=== PATIENT | female | born 1940 | race Two or more races ===

== ENCOUNTER 2024-10-15 19:19 | Inpatient (IN) | payer MEDICARE, MEDICAID ==
[~2024-10-15] VITALS: Ht 162.6 cm; Wt 61.2 kg
--- NOTE | 2024-10-15 19:48 | ED.PDOC ---
History of Present Illness HPI Comments 84 year old female brought in by EMS presents to the ED with a chief complaint of dark stool onset today (10/15/24). Per EMS, patient's family noticed light trace of dark stool, patient woke up today, symptoms had worsen. Upon EMS arrival, BS was reading "high", patient is on 2L O2 at home, A&O to self. Per patient's family, patient was recently taken off Aspirin, last blood transfusion was 2 months ago. PMHx CHF, DM, HTN, anemia, A-fib, dementia. No other symptoms or modifying factors present at this time. Chief Complaint: GI Bleed Time Seen by MD: 19:25 Reviewed Notes: Medications, Allergies Home Meds Reported Medications Megestrol Acetate (Appetite) (Megestrol Acetate) 625 Mg/5 Ml Melida 10/15/24 Levothyroxine Sodium (Levothyroxine Sodium) 75 Mcg Tab, 1 TAB PO QAM 10/15/24 Amlodipine Besylate (Amlodipine Besylate) 10 Mg Tab, 1 DAILY 10/15/24 Carvedilol (Carvedilol) 12.5 Mg Tab 10/15/24 Information Source: Patient, Emergency Med Personnel Mode of Arrival: EMS Severity: Moderate Timing: Hours Duration: Since onset Prehospital treatment: None Vital Signs Vital Signs Date Time Temp Pulse Resp B/P (MAP) Pulse Ox O2 Delivery O2 Flow Rate FiO2 10/15/24 19:27 98.2 63 18 166/91 (116 98 Physical Exam General: Awake, alert No acute distress. Skin: Skin in warm, dry and intact. Appropriate color for ethnicity. HEENT: The head is normocephalic and atraumatic. Nasal cannula in place. Conjunctivae are clear without exudates or hemorrhage. Sclera is non-icteric. EOM are intact. No signs of nystagmus. Eyelids are normal in appearance without swelling or lesions. Oral mucosa is pink and moist Neck: The neck is supple with normal range of motion. No JVD. Cardiac: Heart rate and rhythm are normal. No murmurs, gallops, or rubs are auscultated. Respiratory: No signs of respiratory distress. Lung sounds are clear in all lobes bilaterally without rales, ronchi, or wheezes. Abdominal: Abdomen is soft, non-tender without distention. Bowel sounds are present and normoactive in all four quadrants. Extremities: Upper and lower extremities are atraumatic in appearance without deformity or edema. Neurological: The patient is awake, alert and oriented to person, Speech is clear. There is no facial asymmetry. Review of Systems: Unable to obtain full ROS due to altered mental status however patient is reporting right upper extremity pain, denies chest pain or abdominal pain. Family noted a black color stool. Past Medical History PAST MEDICAL HISTORY: AFIB, Anemia, CHF, Dementia, DM, HTN, Thyroid Surgical History: Denies all surgeries MILL HAND History: No Pertinent MILL HAND History Family History Family History: Reviewed,noncontributory to illness, No family hx of Cancer, No family hx of DM, No family hx of Heart smith, No family hx of HTN, No family hx ofKidney smith, No family hx of Liver smith, No family hx of Lung smith, No family hx of Stroke Social History Smoker: Non-Smoker Alcohol: Denies ETOH Use Drugs: Denies Drug Use Lives In: Home Was a procedure done? Was a procedure done?: No Differential Dx Considerations may include: Upper GI bleed, lower GI bleed, peptic ulcer disease, perforated viscus, anticoagulation and affect, AVM, esophageal varices, DKA, hyperglycemia, acute coronary syndrome, pneumonia, congestive heart failure exacerbation other X-Ray, Labs, Meds, VS Vital Signs Date Time Temp Pulse Resp B/P (MAP) Pulse Ox O2 Delivery O2 Flow Rate FiO2 10/15/24 19:27 98.2 63 18 166/91 (116) 98 Lab Test 10/15/24 20:07 10/15/24 19:41 Range/Units White Blood Count 5.0 4.4-10.8 10^3/uL Red Blood Count 2.77 L 4.0-5.20 10^6/uL Hemoglobin 7.3 L 12.2-16.2 g/dL Hematocrit 22.6 L 36.0-46.0 % Mean Corpuscular Volume 81.7 80.0-100.0 fL Mean Corpuscular Hemoglobin 26.5 L 28.0-32.0 pg Mean Corpuscular Hemoglobin Concent 32.4 32.0-36.0 g/dL Red Cell Distribution Width 15.2 H 11.8-14.3 % Platelet Count 240 140-450 10^3/uL Mean Platelet Volume 8.8 6.9-10.8 fL Neutrophils (%) (Auto) 66.6 37.0-80.0 % Lymphocytes (%) (Auto) 23.7 10.0-50.0 % Monocytes (%) (Auto) 6.3 0.0-12.0 % Eosinophils (%) (Auto) 2.4 0.0-7.0 % Basophils (%) (Auto) 1.0 0.0-2.0 % Neutrophils # (Auto) 3.3 1.6-8.6 10 ^3/uL Lymphocytes # (Auto) 1.2 0.4-5.4 10 ^3/uL Monocytes # (Auto) 0.3 0-1.3 10 ^3/uL Eosinophils # (Auto) 0.1 0-0.8 10 ^3/uL Basophils # (Auto) 0 0-0.2 10 ^3/uL Nucleated Red Blood Cells 0.0 % Sodium Level 130 L 136-145 mmol/L Potassium Level 3.7 3.5-5.1 mmol/L Chloride Level 97 L 98-107 mmol/L Carbon Dioxide Level 25 20-31 mmol/L Anion Gap 8 5-15 Blood Urea Nitrogen 34 H 9-23 mg/dL Creatinine 1.90 H 0.550-1.02 mg/dL Glomerular Filtration Rate Calc 25 >90 mL/min BUN/Creatinine Ratio 17.9 10.0-20.0 Serum Glucose 558 *H 74-106 mg/dL Lactic Acid Level 0.9 0.4-2.0 mmol/L Calcium Level 9.5 8.7-10.4 mg/dL Magnesium Level 2.0 1.6-2.6 mg/dL Total Bilirubin < 0.2 L 0.2-1.0 mg/dL Aspartate Amino Transferase (AST) < 8 L 13-40 U/L Alanine Aminotransferase (ALT) < 9 7-40 U/L Alkaline Phosphatase 115 46-116 U/L Troponin I High Sensitivity 13 </=34 ng/L B-Type Natriuretic Peptide 416.33 0-100 pg/mL Total Protein 7.1 5.7-8.2 g/dL Albumin 3.9 3.2-4.8 g/dL Beta-Hydroxybutyric Acid 0.158 < 0.4 mmol/L Blood Gas Specimen Type Arterial Blood Gas Sample Site Left radial Blood Gas Patient Temperature 37.0 Arterial Blood Date Drawn [id number] Arterial Blood pH 7.405 7.350-7.450 Arterial Blood Partial Pressure CO2 36.5 32.0-45.0 mmHg Arterial Blood Partial Pressure O2 86.0 83.0-108.0 mmHg Arterial Blood HCO3 22.4 21.0-28.0 mmol/L Arterial Blood Oxygen Saturation 96.0 94.0-98.0 % Arterial Blood Base Excess -2.1 L -2.0-3.0 mmol/L Arterial Blood Oxyhemoglobin 95.7 94.0-98.0 % Arterial Blood Carboxyhemoglobin 0.1 L 0.5-1.5 % Arterial Blood Methemoglobin 0.2 0.0-1.5 % James Test Modified Blood Gas Total Hemoglobin 8.40 L 12.0-16.0 g/dL Blood Gas Modality Nasal cannula FiO2 % 28.0 Current Medications Medications (Trade) Dose Ordered Sig/Jackeline Route Start Time Stop Time Status Last Admin Pantoprazole Sodium (Protonix) 40 mg ONCE ONCE IV 10/15/24 19:45 10/15/24 19:46 DC 10/15/24 22:44 [place] [address] Ph: [phone] DIAGNOSTIC IMAGING Diagnostic Imaging Report : [id number] Signed PATIENT: AUGUSTUS BLACKWELL ACCT: [id number] UNIT: [id number] : 1940 LOC: OVERFLOW ROOM / BED: [address] [address] AGE / SEX: 84 / F ADM STATUS: ADM IN SERVICE 50 ORDERING PHYSICIAN: ESTELA PEREZ MD PROCEDURE(s): CXR1 - CHEST XRAY 1 VIEW REASON: Shortness of breath ORDER NUMBER(s): [id number], ACCESSION NUMBER(s): [id number] CHEST RADIOGRAPH Indication: Shortness of breath Technique: Single frontal view of the chest was obtained Comparison: None Findings/ IMPRESSION: Small left-sided pleural effusion and/or atelectasis superimposed infection not excluded ATED BY: ARTEMIO FAUSTIN DO DICTATED DATE/TIME: 10/15/242236 SIGNED BY: ARTEMIO FAUSTIN DO SIGNED DATE/TIME: 10/15/242236 CC: [place] [address] Ph: [phone] DIAGNOSTIC IMAGING Diagnostic Imaging Report : [id number] Signed PATIENT: AUGUSTUS BLACKWELL ACCT: [id number] UNIT: [id number] : 1940 LOC: OVERFLOW ROOM / BED: [address] [address] AGE / SEX: 84 / F ADM STATUS: ADM IN SERVICE 50 ORDERING PHYSICIAN: ESTELA PEREZ MD PROCEDURE(s): ABPL - CT AB PEL WO CON-NO ORAL OR IV REASON: Suspected GI bleed, black stool ORDER NUMBER(s): [id number], ACCESSION NUMBER(s): [id number] Exam: CT AB PEL WO CON-NO ORAL OR IV History: Suspected GI bleed, black stool Comparison Study: None Contrast: None TECHNIQUE: Multidetector CT of abdomen and pelvis without IV contrast. Radiation Dose Information: CT Dose: CTDI volume is 14.6 mGy. Dose-length product is 28.4 mGy*cm FINDINGS: Patient has cardiomegaly with a significant pericardial effusion adjacent to the left heart. Follow-up cardiac echo is suggested further assessment. Are dense calcifications in the left anterior descending coronary artery, left circumflex and also the aortic valve and right coronary artery as well.1 lung bases are suggestive of pulmonary vascular congestion. Stomach demonstrates lack of rugae suggesting possible chronic gastritis. Kidneys are atrophied kidneys have simple cysts. Pancreas appears TB partially atrophied. The common bile duct is enlarged measuring 12.7 mm in caliber. Patient has a moderately large stool burden. The uterus is atrophied no evidence for gastrointestinal obstruction Patient has osteopenia involving the vertebral bodies with significant anterior wedging of T11 and probably developing compression fracture involving L2. Appendix is normal. There are no diverticuli appreciated. Patient has intramedullary ankit involving the right femur. IMPRESSION: Moderately heavy stool burden. Patient appears to have effaced rugae in the stomach which may indicate chronic gastritis May relate to patient's symptoms. Common bile duct is dilated. Patient has atrophied kidneys and maybe developing multiple compression fractures involving the thoracolumbar spine ATED BY: JOSE FRANCISCO CLEARY MD DICTATED DATE/TIME: 10/15/242320 SIGNED BY: JOSE FRANCISCO CLEARY MD SIGNED DATE/TIME: 10/15/242320 CC: Time of 1ST Reevaluation: 19:55 Reevaluation 1ST: Unchanged Patient Education/Counseling: Diagnosis, Treatment, Prognosis Family Education/Counseling: No Family Present Departure 1 Departure Time of Disposition: 20:55 Impression: Primary Impression: Melena Additional Impressions: Congestive heart failure Hyperglycemia Anemia Renal failure Disposition: ADMITTED INPATIENT Condition: Stable Comments 84-year-old female who presents to the emergency department via EMS with report of melena. Protonix was administered. She was found to be hyperglycemic without DKA. IV insulin was administered. Patient has a history of congestive heart failure on supplemental oxygen. Type and screen pending for anemia with a hemoglobin of 7.3 in the setting of melena. Patient admitted for further treatment, evaluation and monitoring. Extensive evaluation was performed in attempt to identify or rule out: (See differential diagnosis section) The following tests were ordered, and results were reviewed by me: (See diagnostic results section) The following test were independently interpreted by me: N/A I reviewed and agreed with the following test results read by other providers: Chest x-ray I reviewed the following notes from the pt's past medical encounters: N/A Additional information was gathered from interviewing the following independent historians: EMS personnel Discussion of management or test interpretation with external physician/other qualified health disabilities caregiver: N/A Addressed an acute or chronic illness that poses a threat to life or bodily function: Severe anemia, hyperglycemia, GI bleed Decision regarding hospitalization or escalation of hospital level of care: Risk and benefits of admission for further treatment of patient's condition was considered. Due to patient's current clinical condition, high risk of decline and poor outcome if discharged and need for further inpatient management and monitoring, patient will be admitted to the hospital. Drug therapy requiring intensive monitoring for toxicity: IV insulin Parenteral controlled substances: N/A Decision regarding elective major surgery with identified patient or procedure risk factors: N/A Decision regarding emergency major surgery: N/A Decision not to resuscitate or to de-escalate care because of poor prognosis: N/A Diagnosis or treatment significantly limited by social determinants of health: N/A Critical Care Note Critical Care Time?: No Stability Stability form required: No I personally scribed for ESTELA PEREZ MD ([email or web address]) on 10/15/24 at 19:48. Electronically submitted by Mayr Carter ([email or web address]). I personally scribed for ESTELA PEREZ MD ([email or web address]) on 10/15/24 at 22:42. Electronically submitted by Mary Carter ([email or web address]). I personally scribed for ESTELA PEREZ MD ([email or web address]) on 10/15/24 at 23:40. Electronically submitted by Mary Carter [email or web address]). ESTELA PEREZ MD Oct 15, 2024 19:48
[2024-10-15 19:57] LABS: Base Excess -2.1 mmol/L (-2.0-3.0)
[2024-10-15 20:23] LABS: Basophils # (auto) 0 10 ^3/uL (0-0.2); Eosinophils # (auto) 0.1 10 ^3/uL (0-0.8); Hemoglobin 7.3 g/dL (12.2-16.2)
[2024-10-15 20:25] LABS: Eosinophils % (auto) 2.4 % (0.0-7.0); Hematocrit 22.6 % (36.0-46.0); Lymphocytes # (auto) 1.2 10 ^3/uL (0.4-5.4); Lymphocytes % (auto) 23.7 % (10.0-50.0); Mean Corpuscular Hemoglobin 26.5 pg (28.0-32.0); Mean Corpuscular Hgb Conc. 32.4 g/dL (32.0-36.0); Mean Corpuscular Volume 81.7 fL (80.0-100.0); Monocytes # (auto) 0.3 10 ^3/uL (0-1.3); Monocytes % (auto) 6.3 % (0.0-12.0); Neutrophils # (auto) 3.3 10 ^3/uL (1.6-8.6); Neutrophils % (auto) 66.6 % (37.0-80.0); Platelet Count (auto) 240 10^3/uL (140-450); Red Blood Cells 2.77 10^6/uL (4.0-5.20); Red Cell Distribution Width 15.2 % (11.8-14.3)
[2024-10-15 20:40] LABS: Albumin 3.9 g/dL (3.2-4.8); Alkaline Phosphatase 115 U/L (46-116); Anion Gap 8 (5-15); BUN/Creatinine Ratio 17.9 (10.0-20.0); Calcium 9.5 mg/dL (8.7-10.4); Carbon Dioxide 25 mmol/L (20-31); Potassium 3.7 mmol/L (3.5-5.1); Total Protein 7.1 g/dL (5.7-8.2)
[2024-10-15 20:42] LABS: Aspartate Aminotransferase < 8 U/L (13-40); Blood Urea Nitrogen 34 mg/dL (9-23); Chloride 97 mmol/L (98-107); Sodium 130 mmol/L (136-145)
[2024-10-15 20:43] LABS: Alanine Aminotransferase < 9 U/L (7-40); Bilirubin, Total < 0.2 mg/dL (0.2-1.0)
[2024-10-15 20:45] LABS: Glucose 558 mg/dL (74-106)
[2024-10-15] MEDS: InsuLIN REG 1unit/0.01ml Soln (100units/ml) IV ONE (21:00)
[2024-10-15] MEDS ORDERED: DEXTROSE (50%) 50ML SYRG IV PRN (22:00)
[2024-10-15] MEDS ORDERED: MORPHINE SULFATE INJ 2 MG/ml SYRG IV PRN (22:00)
[2024-10-15] MEDS ORDERED: NITROGLYCERIN 0.4 MG SL TAB SL PRN (22:00)
[2024-10-15] MEDS: SODIUM CHLORIDE 0.9% 1,000 ML IV SCH (22:00)
--- NOTE | 2024-10-15 22:00 | DVHHP2 ---
Admitting Diagnosis: Dark stools History of Present Illness 84 yo female patient with hx of CHF, DM, HTN, A-fib, anemia, and dementia c/o dark stools x 1 day. EMS found patient's BS to be reading "high". Patient's last blood transfusion was 2 months ago. While in the emergency department the patient was evaluated by the provider, As per provider: Labs, vital signs, and imagining monitored. Patient will be admitted for further evaluation and treatment. I discussed admission with the patient/family and is in agreement to treatment plan. Allergies: Coded Allergies: No Known Drug Allergy (Verified Allergy, Unknown, 10/16/24) Home Meds Reported Medications Megestrol Acetate (Appetite) (Megestrol Acetate) 625 Mg/5 Ml Mel[place] 10/15/24 Levothyroxine Sodium (Levothyroxine Sodium) 75 Mcg Tab, 1 TAB PO QAM 10/15/24 Amlodipine Besylate (Amlodipine Besylate) 10 Mg Tab, 1 DAILY 10/15/24 Carvedilol (Carvedilol) 12.5 Mg Tab 10/15/24 Current Medications Current Medications Medications (Trade) Dose Ordered Sig/Jackeline Route PRN Reason Start Time Stop Time Status Last Admin Ondansetron HCl (Zofran) 4 mg Q4HP PRN IV NAUSEA / VOMITING 10/15/24 22:00 Morphine Sulfate 2 mg Q4HPRN PRN IV SEVERE PAIN (7-10 PAIN SCALE) 10/15/24 22:00 Nitroglycerin (Ntrostat Sublingual) 0.4 mg Q5MINP PRN SL FOR CHEST PAIN 10/15/24 22:00 Morphine Sulfate 2 mg Q30M PRN IV FOR CHEST PAIN 10/15/24 22:00 Sodium Chloride 1,000 ml @ 125 mls/hr Q8H IV 10/15/24 22:00 10/16/24 12:46 DC 10/16/24 07:10 Pantoprazole Sodium (Protonix) 40 mg BID IV 10/16/24 10:00 10/16/24 09:35 Diagnostic Test (Pha) (Accu-Chek Comfort Curve T) 1 strip IQ4HR 10/16/24 00:00 10/16/24 13:17 DC 10/16/24 12:44 Insulin Human Regular (InsuLIN R) IQ4HR SC 10/16/24 00:00 10/16/24 12:48 DC 10/16/24 04:17 Dextrose 50 ml UD PRN IV Blood Sugar LESS THAN 60 10/15/24 22:00 Hydralazine HCl (Apresoline Injection) 10 mg Q6HP PRN IV SBP>150 10/15/24 22:00 Ceftriaxone Sodium 50 ml @ 100 mls/hr DAILY@09 IV 10/16/24 10:30 Carvedilol (Coreg Tablet) 12.5 mg BID PO 10/16/24 10:30 Patient Own Medication 10 mg DAILY PO 10/16/24 10:30 UNV Patient Own Medication 1 tab QAM PO 10/17/24 07:00 UNV Amlodipine Besylate (Norvasc Tablet) 10 mg DAILY PO 10/17/24 10:00 Levothyroxine Sodium (Synthroid Tablet) 25 mcg QAM PO 10/17/24 07:00 Levothyroxine Sodium (Synthroid Tablet) 50 mcg QAM PO 10/17/24 07:00 Potassium Chloride 50 ml @ 25 mls/hr Q2H IV 10/16/24 13:30 10/16/24 17:29 DC 10/16/24 15:30 Insulin Human Regular (InsuLIN R) ACHS SC 10/16/24 17:00 10/16/24 17:56 Diagnostic Test (Pha) (Accu-Chek Comfort Curve T) 1 strip ACHS 10/16/24 17:00 10/16/24 17:00 Sodium Chloride 100 ml @ 50 mls/hr Q2H IV 10/16/24 13:30 10/16/24 17:29 DC 10/16/24 15:30 Review of Systems Constitutional: denies chills, denies fever, denies malaise Eyes: denies eye pain, denies vision change ENT: denies ear pain, denies headache, denies nasal congestion, denies painful swallowing, denies voice change Cardiovascular: denies chest pain, denies edema, denies orthopnea, denies palpitations, denies paroxysmal nocturnal dyspnea Respiratory: denies cough, denies shortness of breath Gastrointestinal: denies constipation, denies diarrhea, denies nausea, denies vomiting Genitourinary: denies dysuria, denies frequent urination, denies urethral discharge Musculoskeletal: denies back pain, denies joint pain, denies muscle pain Skin: denies bruising, denies itching, denies rash Neurological: denies focal weakness, denies headache, denies sensory changes Psychiatric: denies anxiety, denies depression Endocrine: denies polydipsia, denies polyuria Hematologic/Lymphatic: denies easy bleeding, denies easy bruising, denies enlarged lymph nodes Allergic/Immunologic: denies allergy, denies hives Vital Signs Vital Signs Date Time Temp Pulse Resp B/P (MAP) Pulse Ox O2 Delivery O2 Flow Rate FiO2 10/16/24 17:19 98.3 91 17 161/73 (102) 90 98.3 10/16/24 07:44 Nasal Cannula* 2 28 Physical Exam General Appearance: alert, no distress HEENT: EOMI, PERRLA, normal external inspect of ears, no icterus, no nasal drainage Neck: no carotid bruit, no jugular venous distention (JVD), no lymphadenopathy Chest: normal thorax Respiratory: clear to auscultation, normal air movement Cardiovascular: regular rate and rhythm, no diastolic murmur, no jugular venous distention (JVD), no rub, no systolic murmur Abdominal: soft, no hepatomegaly, no mass, no splenomegaly, no tenderness Genitourinary: grossly normal external Musculoskeletal: no joint tenderness, no swelling Extremities: normal pulses, no calf tenderness, no clubbing, no cyanosis, no edema Skin: no bruising, no jaundice, no rash Neurological: alert, No focal deficit Results Labs Test 10/16/24 17:20 10/16/24 08:26 10/16/24 06:23 10/15/24 20:07 Range/Units POC Glucose 219 H 70-106 mg/dl Urine Color Colorless Yellow Urine Clarity Turbid H Clear Urine pH 5.5 5.0-9.0 Urine Specific [place] 1.010 1.001-1.035 Urine Protein 2+ H Negative Urine Ketones Negative Negative Urine Blood Trace H Negative /uL Urine Nitrite Negative Negative Urine Bilirubin Negative Negative Urine Urobilinogen Normal Negative mg/dL Urine Leukocyte Esterase 3+ Negative /uL Urine RBC 3 0 - 4 /hpf Urine WBC Clumps Present None Seen /hpf Urine Microscopic WBC 129 H 0-5 /HPF Urine Squamous Epithelial Cells Few <5 /hpf Urine Bacteria Many H None Seen /hpf Urine Mucus Few None Seen Urine Creatinine 42.34 30.0-125.0 mg/dL Urine Protein/Creatinine Ratio 4.71 Urine Glucose 1+ H Normal mg/dL Urine Total Protein 199.4 H 1-14 mg/dL White Blood Count 6.6 # 4.4-10.8 10^3/uL Red Blood Count 2.76 L 4.0-5.20 10^6/uL Hemoglobin 7.3 L 12.2-16.2 g/dL Hematocrit 21.7 L 36.0-46.0 % Mean Corpuscular Volume 78.5 L 80.0-100.0 fL Mean Corpuscular Hemoglobin 26.3 L 28.0-32.0 pg Mean Corpuscular Hemoglobin Concent 33.5 32.0-36.0 g/dL Red Cell Distribution Width 15.1 H 11.8-14.3 % Platelet Count 256 140-450 10^3/uL Mean Platelet Volume 8.7 6.9-10.8 fL Neutrophils (%) (Auto) 82.0 H 37.0-80.0 % Lymphocytes (%) (Auto) 13.3 10.0-50.0 % Monocytes (%) (Auto) 3.8 0.0-12.0 % Eosinophils (%) (Auto) 0.2 0.0-7.0 % Basophils (%) (Auto) 0.7 0.0-2.0 % Neutrophils # (Auto) 5.4 1.6-8.6 10 ^3/uL Lymphocytes # (Auto) 0.9 0.4-5.4 10 ^3/uL Monocytes # (Auto) 0.3 0-1.3 10 ^3/uL Eosinophils # (Auto) 0 0-0.8 10 ^3/uL Basophils # (Auto) 0 0-0.2 10 ^3/uL Nucleated Red Blood Cells 0.1 % Sodium Level 138 # 136-145 mmol/L Potassium Level 3.1 L 3.5-5.1 mmol/L Chloride Level 105 98-107 mmol/L Carbon Dioxide Level 26 20-31 mmol/L Anion Gap 7 5-15 Blood Urea Nitrogen 37 H 9-23 mg/dL Creatinine 1.67 H 0.550-1.02 mg/dL Glomerular Filtration Rate Calc 30 >90 mL/min BUN/Creatinine Ratio 22.2 H 10.0-20.0 Serum Glucose 145 H 74-106 mg/dL Calcium Level 10.2 8.7-10.4 mg/dL Iron Level 26 L 50-170 ug/dL Total Iron Binding Capacity 289 250-425 ug/dL Percent Iron Saturation 9.0 L 15-50 % Total Bilirubin < 0.2 L 0.2-1.0 mg/dL Aspartate Amino Transferase (AST) < 8 L 13-40 U/L Alanine Aminotransferase (ALT) < 9 7-40 U/L Alkaline Phosphatase 100 46-116 U/L B-Type Natriuretic Peptide 449.91 0-100 pg/mL Total Protein 7.3 5.7-8.2 g/dL Albumin 4.0 3.2-4.8 g/dL Triglycerides Level 118 < 150 mg/dL Cholesterol Level 148 < 200 mg/dL LDL Cholesterol 102 H < 100 mg/dL HDL Cholesterol 29 L 40-59 mg/dL Thyroid Stimulating Hormone (TSH) 3.32 0.55-4.78 uIU/mL Lactic Acid Level 0.9 0.4-2.0 mmol/L Magnesium Level 2.0 1.6-2.6 mg/dL Troponin I High Sensitivity 13 </=34 ng/L Beta-Hydroxybutyric Acid 0.158 < 0.4 mmol/L Test 10/15/24 19:41 Range/Units Blood Gas Specimen Type Arterial Blood Gas Sample Site Left radial Blood Gas Patient Temperature 37.0 Arterial Blood Date Drawn [id number] Arterial Blood pH 7.405 7.350-7.450 Arterial Blood Partial Pressure CO2 36.5 32.0-45.0 mmHg Arterial Blood Partial Pressure O2 86.0 83.0-108.0 mmHg Arterial Blood HCO3 22.4 21.0-28.0 mmol/L Arterial Blood Oxygen Saturation 96.0 94.0-98.0 % Arterial Blood Base Excess -2.1 L -2.0-3.0 mmol/L Arterial Blood Oxyhemoglobin 95.7 94.0-98.0 % Arterial Blood Carboxyhemoglobin 0.1 L 0.5-1.5 % Arterial Blood Methemoglobin 0.2 0.0-1.5 % James Test Modified Blood Gas Total Hemoglobin 8.40 L 12.0-16.0 g/dL Blood Gas Modality Nasal cannula FiO2 % 28.0 Plan 1. GI bleed Monitor, stool for OB, GI consult 2. Acute blood loss anemia Monitor, transfuse 1 unit PRBC 3. DIANN with VMN Monitor, IV fluids 4. Uncontrolled DM II Monitor, insulin ss 5. Acute cystitis with hematuria Monitor, IV abx 6. Dementia Monitor, PPI 7. Metabolic encephalopathy Monitor neurostatus 8. Pleural effusion Monitor 9. Chest pain Monitor, cardiology consult, echocardiogram 10. A-fib RVR Monitor, amio protocol, cardiology consult Plan discussed with: Patient, Other [place] ELIZABETH NP Oct 15, 2024 22:00
[2024-10-15] MEDS ORDERED: CARV12.544 (22:03)
[2024-10-15] MEDS ORDERED: AMLO1TAB23 (22:03)
[2024-10-15] MEDS ORDERED: MEGE1SUS5 (22:03)
[2024-10-15] MEDS ORDERED: LEVO75TA6 PO (22:03)
[2024-10-15 22:30] VITALS: PULSE 58; RESP 18; O2SAT 98
--- NOTE | 2024-10-15 22:39 | DVH ---
CHEST RADIOGRAPH Indication: Shortness of breath Technique: Single frontal view of the chest was obtained Comparison: None Findings/ IMPRESSION: Small left-sided pleural effusion and/or atelectasis superimposed infection not excluded
[2024-10-15] MEDS: PANTOPRAZOLE 40 MG/10 ML VIAL INJ IV ONE (22:44)
--- NOTE | 2024-10-15 23:24 | DVH ---
Exam: CT AB PEL WO CON-NO ORAL OR IV History: Suspected GI bleed, black stool Comparison Study: None Contrast: None TECHNIQUE: Multidetector CT of abdomen and pelvis without IV contrast. Radiation Dose Information: CT Dose: CTDI volume is 14.6 mGy. Dose-length product is 28.4 mGy*cm FINDINGS: Patient has cardiomegaly with a significant pericardial effusion adjacent to the left heart. Follow-u p cardiac echo is suggested further assessment. Are dense calcifications in the left anterior descend ing coronary artery, left circumflex and also the aortic valve and right coronary artery as well.1 saumya ng bases are suggestive of pulmonary vascular congestion. Stomach demonstrates lack of rugae suggesti ng possible chronic gastritis. Kidneys are atrophied kidneys have simple cysts. Pancreas appears TB p artially atrophied. The common bile duct is enlarged measuring 12.7 mm in caliber. Patient has a moderately large stool burden. The uterus is atrophied no evidence for gastrointestinal obstruction Patient has osteopenia involving the vertebral bodies with significant anterior wedging of T11 and pr obably developing compression fracture involving L2. Appendix is normal. There are no diverticuli appreciated. Patient has intramedullary ankit involving th e right femur. IMPRESSION: Moderately heavy stool burden. Patient appears to have effaced rugae in the stomach which may indicate chronic gastritis May relate to patient's symptoms. Common bile duct is dilated. Patient has atrophied kidneys and maybe developin g multiple compression fractures involving the thoracolumbar spine
[2024-10-16] VITALS (13 sets, daily range): BP systolic 109–161; BP diastolic 59–82; PULSE 64–129; RESP 15–23; TEMP 96.9–98.3; O2SAT 90–100
[2024-10-16 07:08] LABS: Eosinophils # (auto) 0 10 ^3/uL (0-0.8); Eosinophils % (auto) 0.2 % (0.0-7.0); Lymphocytes # (auto) 0.9 10 ^3/uL (0.4-5.4); Mean Corpuscular Hgb Conc. 33.5 g/dL (32.0-36.0); Platelet Count (auto) 256 10^3/uL (140-450)
[2024-10-16 07:12] LABS: Basophils # (auto) 0 10 ^3/uL (0-0.2); Basophils % (auto) 0.7 % (0.0-2.0); Hematocrit 21.7 % (36.0-46.0); Hemoglobin 7.3 g/dL (12.2-16.2); Lymphocytes % (auto) 13.3 % (10.0-50.0); Mean Corpuscular Hemoglobin 26.3 pg (28.0-32.0); Mean Corpuscular Volume 78.5 fL (80.0-100.0); Monocytes # (auto) 0.3 10 ^3/uL (0-1.3); Monocytes % (auto) 3.8 % (0.0-12.0); Neutrophils # (auto) 5.4 10 ^3/uL (1.6-8.6); Nucleated Red Blood Cells % 0.1 %; Red Blood Cells 2.76 10^6/uL (4.0-5.20); Red Cell Distribution Width 15.1 % (11.8-14.3); White Blood Cell 6.6 10^3/uL (4.4-10.8)
[2024-10-16 07:25] LABS: Alanine Aminotransferase < 9 U/L (7-40); Alkaline Phosphatase 100 U/L (46-116); Anion Gap 7 (5-15); Aspartate Aminotransferase < 8 U/L (13-40); BUN/Creatinine Ratio 22.2 (10.0-20.0); Blood Urea Nitrogen 37 mg/dL (9-23); Calcium 10.2 mg/dL (8.7-10.4); Carbon Dioxide 26 mmol/L (20-31); Chloride 105 mmol/L (98-107); Glucose 145 mg/dL (74-106); Potassium 3.1 mmol/L (3.5-5.1); Sodium 138 mmol/L (136-145); Total Protein 7.3 g/dL (5.7-8.2)
[2024-10-16 07:28] LABS: Bilirubin, Total < 0.2 mg/dL (0.2-1.0)
[2024-10-16 08:48] LABS: Urine Bacteria MANY /hpf (None Seen); Urine Blood TRACE /uL (Negative); Urine Clarity Turbid (Clear); Urine Color Colorless (Yellow); Urine Mucus FEW (None Seen); Urine Protein, UAD 2+ (Negative); Urine Squamous Epithelial Cell FEW /hpf (<5); Urine Urobilinogen Normal (Negative); Urine WBC 129 /HPF (0-5); Urine WBC Clumps PRESENT /hpf (None Seen); Urine pH 5.5 (5.0-9.0)
[2024-10-16] MEDS: PANTOPRAZOLE 40 MG/10 ML VIAL INJ IV SCH (09:35)
[2024-10-16] MEDS ORDERED: PATIENTS OWN MEDICATION (Amlodipine Besylate 10 MG) PO SCH (10:30)
[2024-10-16] MEDS: CARVEDILOL 12.5 MG TAB PO SCH (10:30)
[2024-10-16] MEDS: cefTRIAXone 1GM/50ML D5W 50 ML IV SCH (10:30)
--- NOTE | 2024-10-16 10:31 | DVHPN2 ---
Progress Note - Dictate Date Seen: Oct 16, 2024 Medical Necessity Reason Pt with a Central, PICC or Fol: No vital signs Vital Sign Date Time Temp Pulse Resp B/P (MAP) Pulse Ox O2 Delivery O2 Flow Rate FiO2 10/16/24 10:00 138 23 148/52 (84) 99 10/16/24 07:44 Nasal Cannula* 2 28 10/16/24 07:00 97.1 97.1 medications Current Medications Medications Dose Ordered Sig/Jackeline Route Start Time Stop Time Status Last Admin Dose Admin Ondansetron HCl 4 mg Q4HP PRN IV 10/15/24 22:00 Morphine Sulfate 2 mg Q4HPRN PRN IV 10/15/24 22:00 Nitroglycerin 0.4 mg Q5MINP PRN SL 10/15/24 22:00 Morphine Sulfate 2 mg Q30M PRN IV 10/15/24 22:00 Sodium Chloride 1,000 ml @ 125 mls/hr Q8H IV 10/15/24 22:00 10/16/24 07:10 125 MLS/HR Pantoprazole Sodium 40 mg BID IV 10/16/24 10:00 10/16/24 09:35 40 MG Diagnostic Test (Pha) 1 strip IQ4HR 10/16/24 00:00 10/16/24 08:10 1 STRIP Insulin Human Regular IQ4HR SC 10/16/24 00:00 10/16/24 04:17 12 UNITS Dextrose 50 ml UD PRN IV 10/15/24 22:00 Hydralazine HCl 10 mg Q6HP PRN IV 10/15/24 22:00 Ceftriaxone Sodium 50 ml @ 100 mls/hr DAILY@09 IV 10/16/24 10:30 UNV Carvedilol 12.5 mg BID PO 10/16/24 10:30 UNV Patient Own Medication 10 mg DAILY PO 10/16/24 10:30 UNV Patient Own Medication 1 tab QAM PO 10/17/24 07:00 UNV objective General Appearance: alert, no distress HEENT: EOMI, PERRLA, normal external inspect of ears, no icterus, no nasal drainage Neck: no carotid bruit, no jugular venous distention (JVD), no lymphadenopathy Chest: normal thorax Respiratory: clear to auscultation, normal air movement Cardiovascular: regular rate and rhythm, no diastolic murmur, no jugular venous distention (JVD), no rub, no systolic murmur Abdominal: soft, no hepatomegaly, no mass, no splenomegaly, no tenderness Genitourinary: grossly normal external Musculoskeletal: no joint tenderness, no swelling Extremities: normal pulses, no calf tenderness, no clubbing, no cyanosis, no edema Skin: no bruising, no jaundice, no rash Neurological: alert, No focal deficit laboratory and microbiology Laboratory Tests 10/16/24 06:23 Test 10/16/24 06:23 Range/Units Serum Glucose 145 H 74-106 mg/dL Problem List 1. GI bleed Monitor, stool for OB, GI consult 2. Acute blood loss anemia Monitor, transfuse 1 unit PRBC 3. DIANN with VMN Monitor, IV fluids 4. Uncontrolled DM II Monitor, insulin ss 5. Acute cystitis with hematuria Monitor, IV abx 6. Dementia Monitor, PPI 7. Metabolic encephalopathy Monitor neurostatus 8. Pleural effusion Monitor 9. Chest pain Monitor, cardiology consult, echocardiogram 10. A-fib RVR Monitor, amio protocol, cardiology consult Assessment/Plan Subjective Patient is awake and alert. Objective Patient was admitted on October 15, 2024 for black tarry stools. Patient was found to have a GI bleed, acute blood loss anemia, DIANN most likely due to vasomotor nephropathy, and acute cystitis with hematuria. Patient also developed A-fib with RVR. Patient has uncontrolled diabetes. Glucose levels was in the 500s. Patient had a noted history of dementia however family noted she was more confused than her baseline. Patient was found to have metabolic encephalopathy related to infection and acute kidney injury. Plan Cardiology consult. Amiodarone per protocol. GI consult for GI bleed. Stool for occult blood. Transfuse 1 unit packed red blood cells. Hemoglobin was 7.2. Monitor renal status. Nephrology consult. Gentle IV hydration. Insulin sliding scale. IV antibiotics for acute cystitis. Monitor pleural effusion. Cathartics as needed for constipation. Plan discussed with: Patient, Other BROOKLYN ELIZABETH NP Oct 16, 2024 10:31
[2024-10-16] MEDS: AMIODARONE BOLUS KIT 100 ML IV ONE (10:39)
[2024-10-16] MEDS: AMIODARONE 360mg/200mL PREMIX 200 ML IV ONE (10:54)
[2024-10-16 11:14] LABS: Triglycerides 118 mg/dL (< 150)
[2024-10-16 11:16] LABS: Cholesterol 148 mg/dL (< 200)
[2024-10-16 11:23] LABS: HDL Cholesterol 29 mg/dL (40-59); LDL Cholesterol 102 mg/dL (< 100)
[2024-10-16] MEDS: POTASSIUM CHL 20MEQ/50ML 50 ML IV SCH (13:30)
[2024-10-16] MEDS: SODIUM CHL 0.9% 100 ML IV SCH (13:30)
--- NOTE | 2024-10-16 13:37 | ECG ---
[facility] Test Date: 2024-10-16 Test Time: 09:57:40 Pat Name: AUGUSTUS BLACKWELL Department: ED Room: 0219T Gender: F Pension Administrator: janet : 1940 Requested By: DANYELLE HENNESSY Order Number: [id number] Reading MD: Bob Rosado Measurements Intervals [place] Rate: 138 P: 0 RI: 0 QRS: -21 QRSD: 93 T: 240 QT: 293 QTc: 444 Interpretive Statements Atrial fibrillation Multiple ventricular premature complexes Borderline left axis deviation Repolarization abnormality, prob rate related Electronically Signed On 10-18-2024 19:09:47 PDT by Bob Rosado Please click the below link to view image of tracing.
--- NOTE | 2024-10-16 14:49 | DVHINCON2 ---
Date of service: Oct 16, [address] Lind Reason for Consultation Acute kidney injury. History of Present Illness 84-year-old patient with significant history of Chronic kidney disease, CHF, diabetes, hypertension, anemia, atrial fibrillation, dementia who presents to the hospital with generalized weakness associated with elevated blood glucose and some confusion patient has dementia and is on 2 L O2 via oxygen at home. She has had blood transfusion in the past and on admission her hemoglobin was found to be 7.3 grams/deciliter. Renal function revealed GFR of 30. Past Medical History Hypertension, diabetes, CHF, Chronic kidney disease, history of anemia. History of dementia. Past Surgical History Patient denies surgical history Allergies: Coded Allergies: No Known Drug Allergy (Verified Allergy, Unknown, 10/16/24) Home Meds Reported Medications Megestrol Acetate (Appetite) (Megestrol Acetate) 625 Mg/5 Ml [place] 10/15/24 Levothyroxine Sodium (Levothyroxine Sodium) 75 Mcg Tab, 1 TAB PO QAM 10/15/24 Amlodipine Besylate (Amlodipine Besylate) 10 Mg Tab, 1 DAILY 10/15/24 Carvedilol (Carvedilol) 12.5 Mg Tab 10/15/24 Current Medications Current Medications Medications (Trade) Dose Ordered Sig/Jackeline Route PRN Reason Start Time Stop Time Status Last Admin Ondansetron HCl (Zofran) 4 mg Q4HP PRN IV NAUSEA / VOMITING 10/15/24 22:00 Morphine Sulfate 2 mg Q4HPRN PRN IV SEVERE PAIN (7-10 PAIN SCALE) 10/15/24 22:00 Nitroglycerin (Ntrostat Sublingual) 0.4 mg Q5MINP PRN SL FOR CHEST PAIN 10/15/24 22:00 Morphine Sulfate 2 mg Q30M PRN IV FOR CHEST PAIN 10/15/24 22:00 Sodium Chloride 1,000 ml @ 125 mls/hr Q8H IV 10/15/24 22:00 10/16/24 12:46 DC 10/16/24 07:10 Pantoprazole Sodium (Protonix) 40 mg BID IV 10/16/24 10:00 10/16/24 09:35 Diagnostic Test (Pha) (Accu-Chek Comfort Curve T) 1 strip IQ4HR 10/16/24 00:00 10/16/24 13:17 DC 10/16/24 12:44 Insulin Human Regular (InsuLIN R) IQ4HR SC 10/16/24 00:00 10/16/24 12:48 DC 10/16/24 04:17 Dextrose 50 ml UD PRN IV Blood Sugar LESS THAN 60 10/15/24 22:00 Hydralazine HCl (Apresoline Injection) 10 mg Q6HP PRN IV SBP>150 10/15/24 22:00 Ceftriaxone Sodium 50 ml @ 100 mls/hr DAILY@09 IV 10/16/24 10:30 Carvedilol (Coreg Tablet) 12.5 mg BID PO 10/16/24 10:30 Patient Own Medication 10 mg DAILY PO 10/16/24 10:30 UNV Patient Own Medication 1 tab QAM PO 10/17/24 07:00 UNV Amlodipine Besylate (Norvasc Tablet) 10 mg DAILY PO 10/17/24 10:00 Levothyroxine Sodium (Synthroid Tablet) 25 mcg QAM PO 10/17/24 07:00 Levothyroxine Sodium (Synthroid Tablet) 50 mcg QAM PO 10/17/24 07:00 Potassium Chloride 50 ml @ 25 mls/hr Q2H IV 10/16/24 13:30 10/16/24 17:29 Insulin Human Regular (InsuLIN R) ACHS SC 10/16/24 17:00 Diagnostic Test (Pha) (Accu-Chek Comfort Curve T) 1 strip ACHS 10/16/24 17:00 Sodium Chloride 100 ml @ 50 mls/hr Q2H IV 10/16/24 13:30 10/16/24 17:29 Family History Patient lives with the family but does not recall family history Social History Patient denies smoking alcohol or drug abuse Review of Systems HEENT: Oral mucosa dry Pale oral mucosa Complains of generalized fatigue Cardiovascular: Denies for chest pain denies orthopnea or PND Respiratory: Denies cough or shortness of breath Gastrointestinal: Denies for nausea vomiting Musculoskeletal: Denies myalgias Neurological: Denies focal weakness Dermatological: Denies any rash The rest of the review of systems were reviewed pertinent positives and pertinent negatives are as per HPI up to 12 points review of systems H&P Exam Vital Signs/I&O Vital Sign Date Time Temp Pulse Resp B/P (MAP) Pulse Ox O2 Delivery O2 Flow Rate FiO2 10/16/24 13:37 97.7 104 21 146/69 97.7 10/16/24 13:35 96 10/16/24 07:44 Nasal Cannula* 2 28 Physical Exam HEENT: No evidence of JVD, no oral ulcers. Pylori mucosa Pulmonary: Lungs are clear on auscultation bilaterally Cardiovascular S1-S2, no S3 or S4 Abdomen: Bowel sounds positive, soft no rebound tenderness Skin: No rash Neurological: Alert and oriented only to self Labs/Diagnostic Data Labs/Diagnostic Data Laboratory Tests Test 10/16/24 12:43 10/16/24 08:26 10/16/24 07:35 10/16/24 06:23 Range/Units POC Glucose 110 H 93 70-106 mg/dl Urine Color Colorless Yellow Urine Clarity Turbid H Clear Urine pH 5.5 5.0-9.0 Urine Specific [place] 1.010 1.001-1.035 Urine Protein 2+ H Negative Urine Ketones Negative Negative Urine Blood Trace H Negative /uL Urine Nitrite Negative Negative Urine Bilirubin Negative Negative Urine Urobilinogen Normal Negative mg/dL Urine Leukocyte Esterase 3+ Negative /uL Urine RBC 3 0 - 4 /hpf Urine WBC Clumps Present None Seen /hpf Urine Microscopic WBC 129 H 0-5 /HPF Urine Squamous Epithelial Cells Few <5 /hpf Urine Bacteria Many H None Seen /hpf Urine Mucus Few None Seen Urine Glucose 1+ H Normal mg/dL White Blood Count 6.6 # 4.4-10.8 10^3/uL Red Blood Count 2.76 L 4.0-5.20 10^6/uL Hemoglobin 7.3 L 12.2-16.2 g/dL Hematocrit 21.7 L 36.0-46.0 % Mean Corpuscular Volume 78.5 L 80.0-100.0 fL Mean Corpuscular Hemoglobin 26.3 L 28.0-32.0 pg Mean Corpuscular Hemoglobin Concent 33.5 32.0-36.0 g/dL Red Cell Distribution Width 15.1 H 11.8-14.3 % Platelet Count 256 140-450 10^3/uL Mean Platelet Volume 8.7 6.9-10.8 fL Neutrophils (%) (Auto) 82.0 H 37.0-80.0 % Lymphocytes (%) (Auto) 13.3 10.0-50.0 % Monocytes (%) (Auto) 3.8 0.0-12.0 % Eosinophils (%) (Auto) 0.2 0.0-7.0 % Basophils (%) (Auto) 0.7 0.0-2.0 % Neutrophils # (Auto) 5.4 1.6-8.6 10 ^3/uL Lymphocytes # (Auto) 0.9 0.4-5.4 10 ^3/uL Monocytes # (Auto) 0.3 0-1.3 10 ^3/uL Eosinophils # (Auto) 0 0-0.8 10 ^3/uL Basophils # (Auto) 0 0-0.2 10 ^3/uL Nucleated Red Blood Cells 0.1 % Sodium Level 138 # 136-145 mmol/L Potassium Level 3.1 L 3.5-5.1 mmol/L Chloride Level 105 98-107 mmol/L Carbon Dioxide Level 26 20-31 mmol/L Anion Gap 7 5-15 Blood Urea Nitrogen 37 H 9-23 mg/dL Creatinine 1.67 H 0.550-1.02 mg/dL Glomerular Filtration Rate Calc 30 >90 mL/min BUN/Creatinine Ratio 22.2 H 10.0-20.0 Serum Glucose 145 H 74-106 mg/dL Calcium Level 10.2 8.7-10.4 mg/dL Iron Level 26 L 50-170 ug/dL Total Iron Binding Capacity 289 250-425 ug/dL Percent Iron Saturation 9.0 L 15-50 % Total Bilirubin < 0.2 L 0.2-1.0 mg/dL Aspartate Amino Transferase (AST) < 8 L 13-40 U/L Alanine Aminotransferase (ALT) < 9 7-40 U/L Alkaline Phosphatase 100 46-116 U/L B-Type Natriuretic Peptide 449.91 0-100 pg/mL Total Protein 7.3 5.7-8.2 g/dL Albumin 4.0 3.2-4.8 g/dL Triglycerides Level 118 < 150 mg/dL Cholesterol Level 148 < 200 mg/dL LDL Cholesterol 102 H < 100 mg/dL HDL Cholesterol 29 L 40-59 mg/dL Thyroid Stimulating Hormone (TSH) 3.32 0.55-4.78 uIU/mL Test 10/16/24 04:10 10/15/24 20:07 10/15/24 19:41 Range/Units POC Glucose 309 H 70-106 mg/dl White Blood Count 5.0 4.4-10.8 10^3/uL Red Blood Count 2.77 L 4.0-5.20 10^6/uL Hemoglobin 7.3 L 12.2-16.2 g/dL Hematocrit 22.6 L 36.0-46.0 % Mean Corpuscular Volume 81.7 80.0-100.0 fL Mean Corpuscular Hemoglobin 26.5 L 28.0-32.0 pg Mean Corpuscular Hemoglobin Concent 32.4 32.0-36.0 g/dL Red Cell Distribution Width 15.2 H 11.8-14.3 % Platelet Count 240 140-450 10^3/uL Mean Platelet Volume 8.8 6.9-10.8 fL Neutrophils (%) (Auto) 66.6 37.0-80.0 % Lymphocytes (%) (Auto) 23.7 10.0-50.0 % Monocytes (%) (Auto) 6.3 0.0-12.0 % Eosinophils (%) (Auto) 2.4 0.0-7.0 % Basophils (%) (Auto) 1.0 0.0-2.0 % Neutrophils # (Auto) 3.3 1.6-8.6 10 ^3/uL Lymphocytes # (Auto) 1.2 0.4-5.4 10 ^3/uL Monocytes # (Auto) 0.3 0-1.3 10 ^3/uL Eosinophils # (Auto) 0.1 0-0.8 10 ^3/uL Basophils # (Auto) 0 0-0.2 10 ^3/uL Nucleated Red Blood Cells 0.0 % Sodium Level 130 L 136-145 mmol/L Potassium Level 3.7 3.5-5.1 mmol/L Chloride Level 97 L 98-107 mmol/L Carbon Dioxide Level 25 20-31 mmol/L Anion Gap 8 5-15 Blood Urea Nitrogen 34 H 9-23 mg/dL Creatinine 1.90 H 0.550-1.02 mg/dL Glomerular Filtration Rate Calc 25 >90 mL/min BUN/Creatinine Ratio 17.9 10.0-20.0 Serum Glucose 558 *H 74-106 mg/dL Lactic Acid Level 0.9 0.4-2.0 mmol/L Calcium Level 9.5 8.7-10.4 mg/dL Magnesium Level 2.0 1.6-2.6 mg/dL Total Bilirubin < 0.2 L 0.2-1.0 mg/dL Aspartate Amino Transferase (AST) < 8 L 13-40 U/L Alanine Aminotransferase (ALT) < 9 7-40 U/L Alkaline Phosphatase 115 46-116 U/L Troponin I High Sensitivity 13 </=34 ng/L B-Type Natriuretic Peptide 416.33 0-100 pg/mL Total Protein 7.1 5.7-8.2 g/dL Albumin 3.9 3.2-4.8 g/dL Beta-Hydroxybutyric Acid 0.158 < 0.4 mmol/L Blood Gas Specimen Type Arterial Blood Gas Sample Site Left radial Blood Gas Patient Temperature 37.0 Arterial Blood Date Drawn [id number] Arterial Blood pH 7.405 7.350-7.450 Arterial Blood Partial Pressure CO2 36.5 32.0-45.0 mmHg Arterial Blood Partial Pressure O2 86.0 83.0-108.0 mmHg Arterial Blood HCO3 22.4 21.0-28.0 mmol/L Arterial Blood Oxygen Saturation 96.0 94.0-98.0 % Arterial Blood Base Excess -2.1 L -2.0-3.0 mmol/L Arterial Blood Oxyhemoglobin 95.7 94.0-98.0 % Arterial Blood Carboxyhemoglobin 0.1 L 0.5-1.5 % Arterial Blood Methemoglobin 0.2 0.0-1.5 % James Test Modified Blood Gas Total Hemoglobin 8.40 L 12.0-16.0 g/dL Blood Gas Modality Nasal cannula FiO2 % 28.0 CT scan showed increased fecal burden no hydronephrosis Assessment Assessment: 1. Acute kidney injury 2. Suspect chronic kidney disease stage 3 3. Anemia concerns for GI bleed 4. Diabetes mellitus 5. Hypertension 6. Dementia Plan: Transfuse one PRBC, monitor H&H transfuse as needed. Obtain urine protein creatinine ratio PPI Urine culture Empiric antibiotics No NSAIDs or IV contrast Hold POOL inhibitor and ARB meanwhile DIANN ongoing. Thank you very much for allowing us to participate in the care of this patient. Plan discussed with: Patient RUY HARE MD Oct 16, 2024 14:49
[2024-10-16 15:35] LABS: Protein, Urine 199.4 mg/dL (1-14)
[2024-10-16 15:37] LABS: Creatinine, Urine 42.34 mg/dL (30.0-125.0); Urine Protein/Creatinine Ratio 4.71
[2024-10-16] MEDS: ACCU-CHEK COMFORT CURVE STRIP VI SCH ×2 (17:00)
--- NOTE | 2024-10-16 17:28 | DVHSR ---
APPROVED REPORT EXAM: LIMITED Two-dimensional and M-mode echocardiogram with Doppler and color Doppler. Blood Pressure: 148/52 mmHg INDICATION Eval RISK FACTORS Height: 5' 4", Weight: 147 DIMENSIONS LVDd3.5 (3.8-5.7cm)LA (2D)3.8 (1.9-4.0cm)Aortic Root3.3 (2.0-3.7cm) LVDs2.8 (2.5-4.0cm)LA (MM) (1.9-4.0cm)Aortic Cusp Exc1.1 (1.5-2.0cm) EF (%) 45.0 (55-70%)Rt. Atrium3.5 (1.9-4.0cm)Asc. Aorta cm IVSd1.2 (0.7-1.1cm)RV (D) (1.8-2.4cm) PWd1.2 (0.7-1.1cm) Mitral Valve MitralMitral Stenosis E wave0.90m/sMV Mean GR.mmHg E/A ratio0.02D MVAcm2 Aortic Valve Aortic ValveAortic Stenosis V11.20m/Abi Mean GR.8mmHg V22.00m/Abi Peak GR.17mmHg LVOT Diameter2.2 (1.8-2.4cm)Doppler AVA2.28cm2 AI P 1/2 [id number] Pulmonic Valve V20.70m/s Tricuspid Valve TR Velocity3.20m/s [id number] Other Information Quality : Technically LimitedRhythm : Atrial Fibrillation Technically limited study due to body habitus and rhythm. Conclusion Left ventricle: Mild concentric left ventricular hypertrophy was seen. LVEF was 45-50%. Mild diffu se hypokinesis of left ventricle was seen. Right ventricle was normal sized with normal systolic function. Mild biatrial enlargement was seen. Aortic valve was trileaflet. There was mild aortic insufficiency. There was no aortic stenosis. Th ere was [id number] mitral regurgitation. There was mild tricuspid regurgitation. There was mi ld pulmonary valve insufficiency. There was moderate pericardial effusion. There was no echocardiographic evidence for tamponade. Rig ht ventricular systolic pressure was assessed at 50 mm Hg.
[2024-10-16] MEDS: InsuLIN REG 1unit/0.01ml Soln (100units/ml) SC SCH ×2 (17:56)
--- NOTE | 2024-10-16 17:59 | DVHINCON2 ---
Date of service: Oct 16, 2024 History of Present Illness HPI Patient was a 84-year-old female who presented to the hospital for generalized weakness and dark stool. She was poor historian. She does have advanced dementia. She also speaks Thai. She was found to have anemia and has received blood transfusion in emergency room. On arrival, the patient was found to have atrial fibrillation with RVR and was started on IV amiodarone. Cardiology was involved for cardiac has been of care. Patient herself is not informative to provide previous cardiac history. There was reported atrial fibrillation in the chart as past medical history. No detail previous history is available to review and comment on. Home Meds Reported Medications Megestrol Acetate (Appetite) (Megestrol Acetate) 625 Mg/5 Ml [place] 10/15/24 Levothyroxine Sodium (Levothyroxine Sodium) 75 Mcg Tab, 1 TAB PO QAM 10/15/24 Amlodipine Besylate (Amlodipine Besylate) 10 Mg Tab, 1 DAILY 10/15/24 Carvedilol (Carvedilol) 12.5 Mg Tab 10/15/24 Past Medical History Others Reported past medical history includes hypertension, diabetes mellitus, CKD, anemia, CHF, atrial fibrillation, advanced dementia, hypothyroidism, old history of blood transfusion and chronic respiratory failure on home oxygen. Family History Patient with the advanced dementia and not source of history. Information could not be obtained Occupation: Patient with the advanced dementia and not source of history. Information Review of Systems All Other Systems Patient with the advanced dementia and not source of history. Review of systems/social history/family history could not be obtained H&P Exam Vital Signs Vital Signs Date Time Temp Pulse Resp B/P (MAP) Pulse Ox O2 Delivery O2 Flow Rate FiO2 10/16/24 17:19 98.3 91 17 161/73 (102) 90 98.3 10/16/24 07:44 Nasal Cannula* 2 28 General Appeara: Mild distress Head Exam: Normal inspection Pulmonary/Respiratory: Rhonci Cardiovascular/Chest: Edema, Systolic murmur, Irregularly irregular Peripheral Pulses: 2+ carotid (R), 2+ carotid (L), 2+ femoral (R), 2+ femoral (L) Abdominal Exam: Normal bowel sounds, Other (Distended, mild periumbilical tenderness. No rebound tenderness) Labs/Xrays Labs Test 10/16/24 12:43 10/16/24 08:26 3/13/25 06:23 10/15/24 20:07 Range/Units POC Glucose 110 H 70-106 mg/dl Urine Color Colorless Yellow Urine Clarity Turbid H Clear Urine pH 5.5 5.0-9.0 Urine Specific [place] 1.010 1.001-1.035 Urine Protein 2+ H Negative Urine Ketones Negative Negative Urine Blood Trace H Negative /uL Urine Nitrite Negative Negative Urine Bilirubin Negative Negative Urine Urobilinogen Normal Negative mg/dL Urine Leukocyte Esterase 3+ Negative /uL Urine RBC 3 0 - 4 /hpf Urine WBC Clumps Present None Seen /hpf Urine Microscopic WBC 129 H 0-5 /HPF Urine Squamous Epithelial Cells Few <5 /hpf Urine Bacteria Many H None Seen /hpf Urine Mucus Few None Seen Urine Creatinine 42.34 30.0-125.0 mg/dL Urine Protein/Creatinine Ratio 4.71 Urine Glucose 1+ H Normal mg/dL Urine Total Protein 199.4 H 1-14 mg/dL White Blood Count 6.6 # 4.4-10.8 10^3/uL Red Blood Count 2.76 L 4.0-5.20 10^6/uL Hemoglobin 7.3 L 12.2-16.2 g/dL Hematocrit 21.7 L 36.0-46.0 % Mean Corpuscular Volume 78.5 L 80.0-100.0 fL Mean Corpuscular Hemoglobin 26.3 L 28.0-32.0 pg Mean Corpuscular Hemoglobin Concent 33.5 32.0-36.0 g/dL Red Cell Distribution Width 15.1 H 11.8-14.3 % Platelet Count 256 140-450 10^3/uL Mean Platelet Volume 8.7 6.9-10.8 fL Neutrophils (%) (Auto) 82.0 H 37.0-80.0 % Lymphocytes (%) (Auto) 13.3 10.0-50.0 % Monocytes (%) (Auto) 3.8 0.0-12.0 % Eosinophils (%) (Auto) 0.2 0.0-7.0 % Basophils (%) (Auto) 0.7 0.0-2.0 % Neutrophils # (Auto) 5.4 1.6-8.6 10 ^3/uL Lymphocytes # (Auto) 0.9 0.4-5.4 10 ^3/uL Monocytes # (Auto) 0.3 0-1.3 10 ^3/uL Eosinophils # (Auto) 0 0-0.8 10 ^3/uL Basophils # (Auto) 0 0-0.2 10 ^3/uL Nucleated Red Blood Cells 0.1 % Sodium Level 138 # 136-145 mmol/L Potassium Level 3.1 L 3.5-5.1 mmol/L Chloride Level 105 98-107 mmol/L Carbon Dioxide Level 26 20-31 mmol/L Anion Gap 7 5-15 Blood Urea Nitrogen 37 H 9-23 mg/dL Creatinine 1.67 H 0.550-1.02 mg/dL Glomerular Filtration Rate Calc 30 >90 mL/min BUN/Creatinine Ratio 22.2 H 10.0-20.0 Serum Glucose 145 H 74-106 mg/dL Calcium Level 10.2 8.7-10.4 mg/dL Iron Level 26 L 50-170 ug/dL Total Iron Binding Capacity 289 250-425 ug/dL Percent Iron Saturation 9.0 L 15-50 % Total Bilirubin < 0.2 L 0.2-1.0 mg/dL Aspartate Amino Transferase (AST) < 8 L 13-40 U/L Alanine Aminotransferase (ALT) < 9 7-40 U/L Alkaline Phosphatase 100 46-116 U/L B-Type Natriuretic Peptide 449.91 0-100 pg/mL Total Protein 7.3 5.7-8.2 g/dL Albumin 4.0 3.2-4.8 g/dL Triglycerides Level 118 < 150 mg/dL Cholesterol Level 148 < 200 mg/dL LDL Cholesterol 102 H < 100 mg/dL HDL Cholesterol 29 L 40-59 mg/dL Thyroid Stimulating Hormone (TSH) 3.32 0.55-4.78 uIU/mL Lactic Acid Level 0.9 0.4-2.0 mmol/L Magnesium Level 2.0 1.6-2.6 mg/dL Troponin I High Sensitivity 13 </=34 ng/L Beta-Hydroxybutyric Acid 0.158 < 0.4 mmol/L Test 10/15/24 19:41 Range/Units Blood Gas Specimen Type Arterial Blood Gas Sample Site Left radial Blood Gas Patient Temperature 37.0 Arterial Blood Date Drawn [id number] Arterial Blood pH 7.405 7.350-7.450 Arterial Blood Partial Pressure CO2 36.5 32.0-45.0 mmHg Arterial Blood Partial Pressure O2 86.0 83.0-108.0 mmHg Arterial Blood HCO3 22.4 21.0-28.0 mmol/L Arterial Blood Oxygen Saturation 96.0 94.0-98.0 % Arterial Blood Base Excess -2.1 L -2.0-3.0 mmol/L Arterial Blood Oxyhemoglobin 95.7 94.0-98.0 % Arterial Blood Carboxyhemoglobin 0.1 L 0.5-1.5 % Arterial Blood Methemoglobin 0.2 0.0-1.5 % James Test Modified Blood Gas Total Hemoglobin 8.40 L 12.0-16.0 g/dL Blood Gas Modality Nasal cannula FiO2 % 28.0 Assessment/Plan Plan Patient was a 84-year-old female who presented to the hospital for generalized weakness and dark stool. She was poor historian. She does have advanced dementia. She also speaks Thai. She was found to have anemia and has received blood transfusion in emergency room. On arrival, the patient was found to have atrial fibrillation with RVR and was started on IV amiodarone. Cardiology was involved for cardiac has been of care. Patient herself is not informative to provide previous cardiac history. There was reported atrial fibrillation in the chart as past medical history. No detail previous history is available to review and comment on. Somehow confused female. Lying flat in bed. Not in acute distress. No JVD. Mucosa is wet. Mucosa is pale. Eyes not parallel. Not using accessory muscles of breathing. Lungs are clear to auscultation. Cardiac: Irregular, no thrill. Systolic murmur 3/6 in the apex is heard. Abdomen is soft and distended. Bowel sounds positive. Mild periumbilical tenderness is elicited. There was no rebound tenderness. There was no gross mass. Extremities reveal 2+ edema bilaterally. Right lower extremity is under dressing. Reported past medical history includes hypertension, diabetes mellitus, CKD, anemia, CHF, atrial fibrillation, advanced dementia, hypothyroidism, old history of blood transfusion and chronic respiratory failure on home oxygen. Hemoglobin: 7.3 - 7.3 Creatinine: 1.9 - 1.67 Potassium: 3.7 - 3.1 Sodium: 130 - 138 BNP: 416.33 - 449.91 Troponin (high sensitive): 13 TSH: 3.32 Chest x-ray revealed: IMPRESSION: Small left-sided pleural effusion and/or atelectasis superimposed infection not excluded Abdomen and pelvis CT scan revealed: Patient has cardiomegaly with a significant pericardial effusion adjacent to the left heart. Follow-up cardiac echo is suggested further assessment. Are dense calcifications in the left anterior descending coronary artery, left circumflex and also the aortic valve and right coronary artery as well.1 lung bases are suggestive of pulmonary vascular congestion. Stomach demonstrates lack of rugae suggesting possible chronic gastritis. Kidneys are atrophied kidneys have simple cysts. Pancreas appears TB partially atrophied. The common bile duct is enlarged measuring 12.7 mm in caliber. Patient has a moderately large stool burden. The uterus is atrophied no evidence for gastrointestinal obstruction Patient has osteopenia involving the vertebral bodies with significant anterior wedging of T11 and probably developing compression fracture involving L2. Appendix is normal. There are no diverticuli appreciated. Patient has intramedullary ankit involving the right femur. IMPRESSION: Moderately heavy stool burden. Patient appears to have effaced rugae in the stomach which may indicate chronic gastritis May relate to patient's symptoms. Common bile duct is dilated. Patient has atrophied kidneys and maybe developing multiple compression fractures involving the thoracolumbar spine EKG revealed atrial fibrillation with RVR Telemetry reveals atrial fibrillation with moderate ventricular response Echocardiogram reported: Left ventricle: Mild concentric left ventricular hypertrophy was seen. LVEF was 45-50%. Mild diffuse hypokinesis of left ventricle was seen. Right ventricle was normal sized with normal systolic function. Mild biatrial enlargement was seen. Aortic valve was trileaflet. There was mild aortic insufficiency. There was no aortic stenosis. There was [id number] mitral regurgitation. There was mild tricuspid regurgitation. There was mild pulmonary valve insufficiency. There was moderate pericardial effusion. There was no echocardiographic evidence for tamponade. Right savanna tricular systolic pressure was assessed at 50 mm Hg. Patient was a 84-year-old female who is poor historian. Reported past medical history includes atrial fibrillation, heart failure, advanced dementia, hypertension and diabetes mellitus. Patient was presented with anemia and tarry stool. Has received blood transfusion for GI bleeding. On presentation, the patient had atrial fibrillation with RVR. Patient reportedly has history of atrial fibrillation. Atrial fibrillation with RVR Significant anemia GI bleeding Dementia, advanced CHF, history of, diastolic Hypertension Hyperlipidemia CKD DIANN and CKD Hypothyroidism Obesity Pericardial effusion, moderate in size Pulmonary hypertension, possibly type 2 Cardiac suggestion for management: Manage on telemetry Follow up electrolytes and kidney function tests and correct abnormalities. Keep potassium above four and magnesium above two IV amiodarone for now a suggested Recognizing comorbidities, the patient's CHADS-VASc score is high and long-term full anticoagulation as advised. As of now, as the patient presented with GI bleeding and severe anemia, holding off on anticoagulation is advised. To restart anticoagulation after GI clearance GI evaluation for anemia/GI bleeding Evaluation and management of DIANN/CKD as per primary team/nephrology Further evaluation and management depends on the above and clinical course Thank you for consultation A total of 75 minutes was spent reviewing the patient record, examining the patient, making a diagnostic and therapeutic plan, discussing this plan with medical personnel, following up on diagnostic studies and following the patient for clinical stability excluding any and all procedures. At least 50% of this time was spent in direct, [id number] contact. Thank you for allowing me to participate in this patient's care. Further recommendations will depend on patient's clinical course. Please do not hesitate to contact me if you have any questions or concerns. This medical document was created using electronic medical record system with [employer] computerized dictation system. Although this document has been carefully reviewed, there may still be some phonetic and typographical errors. These areas are purely typographical due to the imperfection of the software programs, and do not reflect any compromise in the patient's medical care. Plan discussed with: Other (nurse) CALVIN GARCIA MD Oct 16, 2024 17:59
[2024-10-16] MEDS: AMIODARONE 360mg/200mL PREMIX 200 ML IV SCH (18:23)
--- NOTE | 2024-10-16 20:38 | DVHINCON2 ---
Date of service: Oct 16, [address] Lind Reason for Consultation Anemia possible GI bleed History of Present Illness This 84-year-old female presented to the emergency room with complaints of abdominal pain and dark stools patient has got some discomfort in the epigastric area and had some light trace of dark stools apparently. Has four found to be anemic with a hemoglobin of 7.5 g. Patient is a very poor historian unable to get much detailed history Patient was told to be anemic in the past also Denied any hematemesis or nausea vomiting Past Medical History Unable to get much detailed history from the patient try to get the family but could not get much could not get the family past medical history includes stage CHF diabetes anemia atrial fibrillation dementia and hypertension. Family History Noncontributory Social History Denies smoking or drinking Allergies: Coded Allergies: No Known Drug Allergy (Verified Allergy, Unknown, 10/16/24) Home Meds Reported Medications Megestrol Acetate (Appetite) (Megestrol Acetate) 625 Mg/5 Ml [place] 10/15/24 Levothyroxine Sodium (Levothyroxine Sodium) 75 Mcg Tab, 1 TAB PO QAM 10/15/24 Amlodipine Besylate (Amlodipine Besylate) 10 Mg Tab, 1 DAILY 10/15/24 Carvedilol (Carvedilol) 12.5 Mg Tab 10/15/24 Current Medications Current Medications Medications (Trade) Dose Ordered Sig/Jackeline Route PRN Reason Start Time Stop Time Status Last Admin Ondansetron HCl (Zofran) 4 mg Q4HP PRN IV NAUSEA / VOMITING 10/15/24 22:00 Morphine Sulfate 2 mg Q4HPRN PRN IV SEVERE PAIN (7-10 PAIN SCALE) 10/15/24 22:00 Nitroglycerin (Ntrostat Sublingual) 0.4 mg Q5MINP PRN SL FOR CHEST PAIN 10/15/24 22:00 Morphine Sulfate 2 mg Q30M PRN IV FOR CHEST PAIN 10/15/24 22:00 Sodium Chloride 1,000 ml @ 125 mls/hr Q8H IV 10/15/24 22:00 10/16/24 12:46 DC 10/16/24 07:10 Pantoprazole Sodium (Protonix) 40 mg BID IV 10/16/24 10:00 10/16/24 09:35 Diagnostic Test (Pha) (Accu-Chek Comfort Curve T) 1 strip IQ4HR 10/16/24 00:00 10/16/24 13:17 DC 10/16/24 12:44 Insulin Human Regular (InsuLIN R) IQ4HR SC 10/16/24 00:00 10/16/24 12:48 DC 10/16/24 04:17 Dextrose 50 ml UD PRN IV Blood Sugar LESS THAN 60 10/15/24 22:00 Hydralazine HCl (Apresoline Injection) 10 mg Q6HP PRN IV SBP>150 10/15/24 22:00 Ceftriaxone Sodium 50 ml @ 100 mls/hr DAILY@09 IV 10/16/24 10:30 Carvedilol (Coreg Tablet) 12.5 mg BID PO 10/16/24 10:30 Patient Own Medication 10 mg DAILY PO 10/16/24 10:30 UNV Patient Own Medication 1 tab QAM PO 10/17/24 07:00 UNV Amlodipine Besylate (Norvasc Tablet) 10 mg DAILY PO 10/17/24 10:00 Levothyroxine Sodium (Synthroid Tablet) 25 mcg QAM PO 10/17/24 07:00 Levothyroxine Sodium (Synthroid Tablet) 50 mcg QAM PO 10/17/24 07:00 Potassium Chloride 50 ml @ 25 mls/hr Q2H IV 10/16/24 13:30 10/16/24 17:29 DC 10/16/24 15:30 Insulin Human Regular (InsuLIN R) ACHS SC 10/16/24 17:00 10/16/24 17:56 Diagnostic Test (Pha) (Accu-Chek Comfort Curve T) 1 strip ACHS 10/16/24 17:00 10/16/24 17:00 Sodium Chloride 100 ml @ 50 mls/hr Q2H IV 10/16/24 13:30 10/16/24 17:29 DC 10/16/24 15:30 Review of Systems Noncontributory Vital Signs Vital Signs Date Time Temp Pulse Resp B/P (MAP) Pulse Ox O2 Delivery O2 Flow Rate FiO2 10/16/24 17:19 98.3 91 17 161/73 (102) 90 98.3 10/16/24 07:44 Nasal Cannula* 2 28 Physical Exam Originally built and nourished female slightly on the obese side in no acute Distress looked pale vitals stable HEENT examination mild pallor Lungs clear Cardio Vascular unremarkable Abdomen soft obese no rigidity no guarding no masses could be felt but abdomen is obese Labs/Diagnostic Data Labs Test 10/16/24 17:20 10/16/24 08:26 10/16/24 06:23 10/15/24 20:07 Range/Units POC Glucose 219 H 70-106 mg/dl Urine Color Colorless Yellow Urine Clarity Turbid H Clear Urine pH 5.5 5.0-9.0 Urine Specific [place] 1.010 1.001-1.035 Urine Protein 2+ H Negative Urine Ketones Negative Negative Urine Blood Trace H Negative /uL Urine Nitrite Negative Negative Urine Bilirubin Negative Negative Urine Urobilinogen Normal Negative mg/dL Urine Leukocyte Esterase 3+ Negative /uL Urine RBC 3 0 - 4 /hpf Urine WBC Clumps Present None Seen /hpf Urine Microscopic WBC 129 H 0-5 /HPF Urine Squamous Epithelial Cells Few <5 /hpf Urine Bacteria Many H None Seen /hpf Urine Mucus Few None Seen Urine Creatinine 42.34 30.0-125.0 mg/dL Urine Protein/Creatinine Ratio 4.71 Urine Glucose 1+ H Normal mg/dL Urine Total Protein 199.4 H 1-14 mg/dL White Blood Count 6.6 # 4.4-10.8 10^3/uL Red Blood Count 2.76 L 4.0-5.20 10^6/uL Hemoglobin 7.3 L 12.2-16.2 g/dL Hematocrit 21.7 L 36.0-46.0 % Mean Corpuscular Volume 78.5 L 80.0-100.0 fL Mean Corpuscular Hemoglobin 26.3 L 28.0-32.0 pg Mean Corpuscular Hemoglobin Concent 33.5 32.0-36.0 g/dL Red Cell Distribution Width 15.1 H 11.8-14.3 % Platelet Count 256 140-450 10^3/uL Mean Platelet Volume 8.7 6.9-10.8 fL Neutrophils (%) (Auto) 82.0 H 37.0-80.0 % Lymphocytes (%) (Auto) 13.3 10.0-50.0 % Monocytes (%) (Auto) 3.8 0.0-12.0 % Eosinophils (%) (Auto) 0.2 0.0-7.0 % Basophils (%) (Auto) 0.7 0.0-2.0 % Neutrophils # (Auto) 5.4 1.6-8.6 10 ^3/uL Lymphocytes # (Auto) 0.9 0.4-5.4 10 ^3/uL Monocytes # (Auto) 0.3 0-1.3 10 ^3/uL Eosinophils # (Auto) 0 0-0.8 10 ^3/uL Basophils # (Auto) 0 0-0.2 10 ^3/uL Nucleated Red Blood Cells 0.1 % Sodium Level 138 # 136-145 mmol/L Potassium Level 3.1 L 3.5-5.1 mmol/L Chloride Level 105 98-107 mmol/L Carbon Dioxide Level 26 20-31 mmol/L Anion Gap 7 5-15 Blood Urea Nitrogen 37 H 9-23 mg/dL Creatinine 1.67 H 0.550-1.02 mg/dL Glomerular Filtration Rate Calc 30 >90 mL/min BUN/Creatinine Ratio 22.2 H 10.0-20.0 Serum Glucose 145 H 74-106 mg/dL Calcium Level 10.2 8.7-10.4 mg/dL Iron Level 26 L 50-170 ug/dL Total Iron Binding Capacity 289 250-425 ug/dL Percent Iron Saturation 9.0 L 15-50 % Total Bilirubin < 0.2 L 0.2-1.0 mg/dL Aspartate Amino Transferase (AST) < 8 L 13-40 U/L Alanine Aminotransferase (ALT) < 9 7-40 U/L Alkaline Phosphatase 100 46-116 U/L B-Type Natriuretic Peptide 449.91 0-100 pg/mL Total Protein 7.3 5.7-8.2 g/dL Albumin 4.0 3.2-4.8 g/dL Triglycerides Level 118 < 150 mg/dL Cholesterol Level 148 < 200 mg/dL LDL Cholesterol 102 H < 100 mg/dL HDL Cholesterol 29 L 40-59 mg/dL Thyroid Stimulating Hormone (TSH) 3.32 0.55-4.78 uIU/mL Lactic Acid Level 0.9 0.4-2.0 mmol/L Magnesium Level 2.0 1.6-2.6 mg/dL Troponin I High Sensitivity 13 </=34 ng/L Beta-Hydroxybutyric Acid 0.158 < 0.4 mmol/L Test 10/15/24 19:41 Range/Units Blood Gas Specimen Type Arterial Blood Gas Sample Site Left radial Blood Gas Patient Temperature 37.0 Arterial Blood Date Drawn [id number] Arterial Blood pH 7.405 7.350-7.450 Arterial Blood Partial Pressure CO2 36.5 32.0-45.0 mmHg Arterial Blood Partial Pressure O2 86.0 83.0-108.0 mmHg Arterial Blood HCO3 22.4 21.0-28.0 mmol/L Arterial Blood Oxygen Saturation 96.0 94.0-98.0 % Arterial Blood Base Excess -2.1 L -2.0-3.0 mmol/L Arterial Blood Oxyhemoglobin 95.7 94.0-98.0 % Arterial Blood Carboxyhemoglobin 0.1 L 0.5-1.5 % Arterial Blood Methemoglobin 0.2 0.0-1.5 % James Test Modified Blood Gas Total Hemoglobin 8.40 L 12.0-16.0 g/dL Blood Gas Modality Nasal cannula FiO2 % 28.0 Assessment 84-year-old female with complaints of dark stools and abdominal discomfort minimal unable to get much detailed history patient is a very poor historian the patient has got oxygen at home has got history of pretty bad congestive heart failure diabetes mellitus hypertension on home oxygen patient was also found to be apparently anemic chronically patient also has got dementia and longstanding atrial fibrillation. She was on Eliquis in the past. No gross GI bleeding at this time but had some dark stools hemoglobin was 7.5 white count is normal MCV is slightly decreased. Liver functions are normal Clinical impression Anemia fossa with dark stools possible ulcer disease or other upper GI pathology to be considered Plan/Recommendation will recommend stabilized cardiac-wilson We will recommend an EGD evaluation if cleared okay by Cardiology the EGD has to be done with anesthesia standby because of the age and poor cardiac status Patient may need longstanding anticoagulants and we will recommend an EGD before anticoagulants started Would be to glad to arrange for the EGD if cleared by Cardiology tomorrow Sunday or Sunday thank you Dr. Lynne East discussed with: Other ROBYN DIAMOND MD Oct 16, 2024 20:38
[2024-10-17] VITALS (8 sets, daily range): BP systolic 103–152; BP diastolic 64–89; PULSE 71–98; RESP 17–20; TEMP 97.8–98.7; O2SAT 93–99
[2024-10-17 05:44] LABS: Basophils # (auto) 0 10 ^3/uL (0-0.2); Basophils % (auto) 0.8 % (0.0-2.0); Eosinophils # (auto) 0.1 10 ^3/uL (0-0.8); Eosinophils % (auto) 1.4 % (0.0-7.0); Hematocrit 31.5 % (36.0-46.0); Hemoglobin 10.1 g/dL (12.2-16.2); Lymphocytes # (auto) 1.6 10 ^3/uL (0.4-5.4); Lymphocytes % (auto) 23.8 % (10.0-50.0); Mean Corpuscular Hemoglobin 26.3 pg (28.0-32.0); Mean Corpuscular Volume 82.1 fL (80.0-100.0); Monocytes # (auto) 0.5 10 ^3/uL (0-1.3); Monocytes % (auto) 7.3 % (0.0-12.0); Neutrophils # (auto) 4.4 10 ^3/uL (1.6-8.6); Neutrophils % (auto) 66.7 % (37.0-80.0); Nucleated Red Blood Cells % 0.2 %; Platelet Count (auto) 238 10^3/uL (140-450); Red Blood Cells 3.84 10^6/uL (4.0-5.20); Red Cell Distribution Width 15.6 % (11.8-14.3); White Blood Cell 6.5 10^3/uL (4.4-10.8)
[2024-10-17] MEDS: LEVOTHYROXINE SODIUM 50 MCG TAB PO SCH (06:05)
[2024-10-17] MEDS: LEVOTHYROXINE SODIUM 25 MCG TAB PO SCH (06:06)
--- NOTE | 2024-10-17 06:43 | DVHPN2 ---
Progress Note - Dictate Date Seen: Oct 17, 2024 Medical Necessity Reason Pt with a Central, PICC or Fol: No vital signs Vital Sign Date Time Temp Pulse Resp B/P (MAP) Pulse Ox O2 Delivery O2 Flow Rate FiO2 10/17/24 05:00 98.2 71 19 142/71 (94) 93 98.2 10/16/24 07:44 Nasal Cannula* 2 28 Total Intake and Output 10/16/24 10/16/24 10/17/24 15:00 23:00 07:00 Intake Total 1074.99 ml 400.1 ml 0 ml Output Total 425 ml Balance 1074.99 ml 400.1 ml -425 ml medications Current Medications Medications Dose Ordered Sig/Jackeline Route Start Time Stop Time Status Last Admin Dose Admin Ondansetron HCl 4 mg Q4HP PRN IV 10/15/24 22:00 Morphine Sulfate 2 mg Q4HPRN PRN IV 10/15/24 22:00 Nitroglycerin 0.4 mg Q5MINP PRN SL 10/15/24 22:00 Morphine Sulfate 2 mg Q30M PRN IV 10/15/24 22:00 Pantoprazole Sodium 40 mg BID IV 10/16/24 10:00 10/16/24 21:58 40 MG Dextrose 50 ml UD PRN IV 10/15/24 22:00 Hydralazine HCl 10 mg Q6HP PRN IV 10/15/24 22:00 Ceftriaxone Sodium 50 ml @ 100 mls/hr DAILY@09 IV 10/16/24 10:30 Carvedilol 12.5 mg BID PO 10/16/24 10:30 Patient Own Medication 10 mg DAILY PO 10/16/24 10:30 UNV Patient Own Medication 1 tab QAM PO 10/17/24 07:00 UNV Amlodipine Besylate 10 mg DAILY PO 10/17/24 10:00 Levothyroxine Sodium 25 mcg QAM PO 10/17/24 07:00 Levothyroxine Sodium 50 mcg QAM PO 10/17/24 07:00 Insulin Human Regular ACHS SC 10/16/24 17:00 10/17/24 06:16 4 UNITS Diagnostic Test (Pha) 1 strip ACHS 10/16/24 17:00 10/17/24 06:16 1 STRIP laboratory and microbiology Laboratory Tests 10/17/24 04:39 10/16/24 06:23 Test 10/16/24 06:23 Range/Units Serum Glucose 145 H 74-106 mg/dL Assessment/Plan Patient was a 84-year-old female who presented to the hospital for generalized weakness and dark stool. She was poor historian. She does have advanced dementia. She also speaks Sinhala. She was found to have anemia and has received blood transfusion in emergency room. On arrival, the patient was found to have atrial fibrillation with RVR and was started on IV amiodarone. Cardiology was involved for cardiac has been of care. Patient herself is not informative to provide previous cardiac history. There was reported atrial fibrillation in the chart as past medical history. No detail previous history is available to review and comment on. Somehow confused female. Lying flat in bed. Not in acute distress. No JVD. Mucosa is wet. Mucosa is pale. Eyes not parallel. Not using accessory muscles of breathing. Lungs are clear to auscultation. Cardiac: Irregular, no thrill. Systolic murmur 3/6 in the apex is heard. Abdomen is soft and distended. Bowel sounds positive. Mild periumbilical tenderness is elicited. There was no rebound tenderness. There was no gross mass. Extremities reveal 2+ edema bilaterally. Right lower extremity is under dressing. Reported past medical history includes hypertension, diabetes mellitus, CKD, anemia, CHF, atrial fibrillation, advanced dementia, hypothyroidism, old history of blood transfusion and chronic respiratory failure on home oxygen. Hemoglobin: 7.3 - 7.3 - 10.1 Creatinine: 1.9 - 1.67 Potassium: 3.7 - 3.1 Sodium: 130 - 138 BNP: 416.33 - 449.91 Troponin (high sensitive): 13 TSH: 3.32 Chest x-ray revealed: IMPRESSION: Small left-sided pleural effusion and/or atelectasis superimposed infection not excluded Abdomen and pelvis CT scan revealed: Patient has cardiomegaly with a significant pericardial effusion adjacent to the left heart. Follow-up cardiac echo is suggested further assessment. Are dense calcifications in the left anterior descending coronary artery, left circumflex and also the aortic valve and right coronary artery as well.1 lung bases are suggestive of pulmonary vascular congestion. Stomach demonstrates lack of rugae suggesting possible chronic gastritis. Kidneys are atrophied kidneys have simple cysts. Pancreas appears TB partially atrophied. The common bile duct is enlarged measuring 12.7 mm in caliber. Patient has a moderately large stool burden. The uterus is atrophied no evidence for gastrointestinal obstruction Patient has osteopenia involving the vertebral bodies with significant anterior wedging of T11 and probably developing compression fracture involving L2. Appendix is normal. There are no diverticuli appreciated. Patient has intramedullary ankit involving the right femur. IMPRESSION: Moderately heavy stool burden. Patient appears to have effaced rugae in the stomach which may indicate chronic gastritis May relate to patient's symptoms. Common bile duct is dilated. Patient has atrophied kidneys and maybe developing multiple compression fractures involving the thoracolumbar spine EKG revealed atrial fibrillation with RVR Telemetry reveals atrial fibrillation with moderate ventricular response Echocardiogram reported: Left ventricle: Mild concentric left ventricular hypertrophy was seen. LVEF was 45-50%. Mild diffuse hypokinesis of left ventricle was seen. Right ventricle was normal sized with normal systolic function. Mild biatrial enlargement was seen. Aortic valve was trileaflet. There was mild aortic insufficiency. There was no aortic stenosis. There was [id number] mitral regurgitation. There was mild tricuspid regurgitation. There was mild pulmonary valve insufficiency. There was moderate pericardial effusion. There was no echocardiographic evidence for tamponade. Right ventricular systolic pressure was assessed at 50 mm Hg. Patient was a 84-year-old female who is poor historian. Reported past medical history includes atrial fibrillation, heart failure, advanced dementia, hypertension and diabetes mellitus. Patient was presented with anemia and tarry stool. Has received blood transfusion for GI bleeding. On presentation, the patient had atrial fibrillation with RVR. Patient reportedly has history of atrial fibrillation. Atrial fibrillation with RVR Significant anemia GI bleeding Dementia, advanced CHF, history of, diastolic Hypertension Hyperlipidemia CKD DIANN and CKD Hypothyroidism Obesity Pericardial effusion, moderate in size Pulmonary hypertension, possibly type 2 Cardiac suggestion for management: Manage on telemetry Follow up electrolytes and kidney function tests and correct abnormalities. Keep potassium above four and magnesium above two On amiodarone Recognizing comorbidities, the patient's CHADS-VASc score is high and long-term full anticoagulation as advised. As of now, as the patient presented with GI bleeding and severe anemia, holding off on anticoagulation is advised. To restart anticoagulation after GI clearance Cardiac wilson, patient is moderate risk for low risk EGD. Cardiac wilson, you can proceed with EGD under appropriate intra and post operative hemodynamic monitoring. Avoid Hypotension. Evaluation and management of DIANN/CKD as per primary team/nephrology Further evaluation and management depends on the above and clinical course A total of 55 minutes was spent reviewing the patient record, examining the patient, making a diagnostic and therapeutic plan, discussing this plan with medical personnel, following up on diagnostic studies and following the patient for clinical stability excluding any and all procedures. At least 50% of this time was spent in direct, [id number] contact. Thank you for allowing me to participate in this patient's care. Further recommendations will depend on patient's clinical course. Please do not hesitate to contact me if you have any questions or concerns. This medical document was created using electronic medical record system with [employer] computerized dictation system. Although this document has been carefully reviewed, there may still be some phonetic and typographical errors. These areas are purely typographical due to the imperfection of the software programs, and do not reflect any compromise in the patient's medical care. Plan discussed with: Other (nurse) CALVIN GARCIA MD Oct 17, 2024 06:43
[2024-10-17] MEDS ORDERED: PATIENTS OWN MEDICATION (Levothyroxine Sodium 1 TAB) PO SCH (07:00)
[2024-10-17] MEDS: amLODIPine BESYLATE 5 MG TAB PO SCH (09:01)
[2024-10-17 11:39] LABS: Alanine Aminotransferase < 9 U/L (7-40); Alkaline Phosphatase 87 U/L (46-116); Anion Gap 9 (5-15); Blood Urea Nitrogen 31 mg/dL (9-23); Calcium 9.3 mg/dL (8.7-10.4); Carbon Dioxide 22 mmol/L (20-31); Chloride 106 mmol/L (98-107); Glucose 291 mg/dL (74-106); Potassium 4.2 mmol/L (3.5-5.1); Sodium 137 mmol/L (136-145); Total Protein 6.6 g/dL (5.7-8.2)
[2024-10-17 11:40] LABS: Albumin 3.6 g/dL (3.2-4.8); Aspartate Aminotransferase 13 U/L (13-40)
[2024-10-17 11:41] LABS: Bilirubin, Total < 0.2 mg/dL (0.2-1.0)
[2024-10-17] MEDS ORDERED: PROPOFOL 10 MG/ML 20 ML IV ONE (13:55)
--- NOTE | 2024-10-17 14:48 | DVHPN2 ---
Progress Note - Dictate Date Seen: Oct 17, 2024 Medical Necessity Reason Pt with a Central, PICC or Fol: No Subjective No acute complaints vital signs Vital Sign Date Time Temp Pulse Resp B/P (MAP) Pulse Ox O2 Delivery O2 Flow Rate FiO2 10/17/24 13:00 98.0 89 18 117/64 (81) 96 98.0 10/16/24 07:44 Nasal Cannula* 2 28 Total Intake and Output 10/16/24 10/16/24 10/17/24 15:00 23:00 07:00 Intake Total 1074.99 ml 400.1 ml 0 ml Output Total 425 ml Balance 1074.99 ml 400.1 ml -425 ml medications Current Medications Medications Dose Ordered Sig/Jackeline Route Start Time Stop Time Status Last Admin Dose Admin Ondansetron HCl 4 mg Q4HP PRN IV 10/15/24 22:00 Morphine Sulfate 2 mg Q4HPRN PRN IV 10/15/24 22:00 Nitroglycerin 0.4 mg Q5MINP PRN SL 10/15/24 22:00 Morphine Sulfate 2 mg Q30M PRN IV 10/15/24 22:00 Pantoprazole Sodium 40 mg BID IV 10/16/24 10:00 10/17/24 09:00 40 MG Dextrose 50 ml UD PRN IV 10/15/24 22:00 Hydralazine HCl 10 mg Q6HP PRN IV 10/15/24 22:00 Ceftriaxone Sodium 50 ml @ 100 mls/hr DAILY@09 IV 10/16/24 10:30 10/17/24 11:27 100 MLS/HR Carvedilol 12.5 mg BID PO 10/16/24 10:30 10/17/24 09:01 12.5 MG Patient Own Medication 10 mg DAILY PO 10/16/24 10:30 UNV Patient Own Medication 1 tab QAM PO 10/17/24 07:00 UNV Amlodipine Besylate 10 mg DAILY PO 10/17/24 10:00 10/17/24 09:01 10 MG Levothyroxine Sodium 25 mcg QAM PO 10/17/24 07:00 Levothyroxine Sodium 50 mcg QAM PO 10/17/24 07:00 Insulin Human Regular ACHS SC 10/16/24 17:00 10/17/24 12:33 6 UNITS Diagnostic Test (Pha) 1 strip ACHS 10/16/24 17:00 10/17/24 11:30 1 STRIP objective HEENT: No evidence of JVD, no oral ulcers. Pulmonary: Lungs are clear on auscultation bilaterally Cardiovascular S1-S2, no S3 or S4 Abdomen: Bowel sounds positive, soft no rebound tenderness Skin: No rash Neurological: Patient is alert but she is disoriented laboratory and microbiology Laboratory Tests 10/17/24 10:58 10/17/24 04:39 Test 10/17/24 10:58 Range/Units Serum Glucose 291 H 74-106 mg/dL Assessment/Plan Assessment: 1. Acute kidney injury 2. Suspect chronic kidney disease stage 3 Protein creatinine ratio is 4 g likely from diabetes Stable GFR 3. 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 Hypertension 6. Dementia Plan: Monitor H&H, transfuse as needed. Patient is on PPI. Urine culture Continue antihypertensive meds Empiric antibiotics No NSAIDs or IV contrast He prior to discharge patient will benefit from POOL inhibitor or ARB, potentially SGLT2 inhibitor as an outpatient Thank you very much for allowing us to participate in the care of this patient. Dietary Evaluation Review Comments: CCHO-60g renal Specific 50g Protein diet texture as tolerated when medically feasible. Expected Outcomes/Goals: controlled DM, less uremic symptoms, maintain BW. Plan discussed with: Patient RUY HARE MD Oct 17, 2024 14:48
--- NOTE | 2024-10-17 16:32 | DVHOP2 ---
Operative Report DATE OF PROCEDURE: 10/17/24 INDICATIONS FOR THE PROCEDURE: Anemia tarry stools abnormal CT scan possible gastritis and and severe congestive heart failure PROCEDURE PERFORMED: 1. Esophagogastroduodenoscopy and biopsy by cold biopsy forceps POSTOPERATIVE DIAGNOSIS: Small superficial gastric polyps about 8-10 in number of about 4-5 mm in diameter the biopsies taken from three of them with cold biopsy forceps Mild gastritis of the antrum cold biopsy taken to ensure there is no H pylori or other pathology Small hiatal hernia No active bleeding seen INFORMED CONSENT: The risks and benefits and alternatives were explained to the patient and informed consent was obtained. PROCEDURE IN DETAIL: The patient was kept NPO after midnight. In the endoscopy room in [place] the procedure was done under MAC . Olympus gastroscope was passed through the oropharynx into the stomach and the duodenum, and the findings were as follows. Esophagus: 1 cm hiatal hernia without esophagitis strictures ulcers or mass lesions No varices No active bleeding Stomach: Fundus: Unremarkable Body and antrum In the upper body the about 810 small polyps superficial about 4-5 mm in diameter without any gross bleeding biopsies taken from three of them with cold biopsy forceps Antrum there were erythematous streaks in the antrum suggestive of mild gastritis biopsies taken to ensure there was no H pylori or other pathology Pylorus normal Duodenum unremarkable No active bleeding seen at this time in the upper GI tract Endoscopic impression Hiatal hernia without esophagitis Small gastric polyps random biopsies taken with cold biopsy forceps Antral gastritis biopsies taken with cold biopsy forceps No active bleeding seen in the upper GI tract at this examination Suggestions Treat with PPIs Was the hemoglobin closely Hemoglobin continues to drop may need further evaluation including colonoscopy capsule endoscopy and other workup as necessary Thank you ROBYN Blanco MD Oct 17, 2024 16:32
--- NOTE | 2024-10-17 19:43 | DVHPN2 ---
Progress Note Date Seen: Oct 17, 2024 Medical Necessity Reason Pt with a Central, PICC or Fol: No Subjective Review of Systems: Not Done (altered) Objective vital signs Vital Sign Date Time Temp Pulse Resp B/P (MAP) Pulse Ox O2 Delivery O2 Flow Rate FiO2 10/17/24 17:00 97.9 94 18 140/78 (98) 99 97.9 10/17/24 16:17 Nasal Cannula 2.0 98 Total Intake and Output 10/16/24 10/16/24 10/17/24 15:00 23:00 07:00 Intake Total 1074.99 ml 400.1 ml 0 ml Output Total 425 ml Balance 1074.99 ml 400.1 ml -425 ml medications Current Medications Medications Dose Ordered Sig/Jackeline Route Start Time Stop Time Status Last Admin Dose Admin Ondansetron HCl 4 mg Q4HP PRN IV 10/15/24 22:00 Morphine Sulfate 2 mg Q4HPRN PRN IV 10/15/24 22:00 Nitroglycerin 0.4 mg Q5MINP PRN SL 10/15/24 22:00 Morphine Sulfate 2 mg Q30M PRN IV 10/15/24 22:00 Pantoprazole Sodium 40 mg BID IV 10/16/24 10:00 10/17/24 09:00 40 MG Dextrose 50 ml UD PRN IV 10/15/24 22:00 Hydralazine HCl 10 mg Q6HP PRN IV 10/15/24 22:00 Ceftriaxone Sodium 50 ml @ 100 mls/hr DAILY@09 IV 10/16/24 10:30 10/17/24 11:27 100 MLS/HR Carvedilol 12.5 mg BID PO 10/16/24 10:30 10/17/24 09:01 12.5 MG Patient Own Medication 10 mg DAILY PO 10/16/24 10:30 UNV Patient Own Medication 1 tab QAM PO 10/17/24 07:00 UNV Amlodipine Besylate 10 mg DAILY PO 10/17/24 10:00 10/17/24 09:01 10 MG Levothyroxine Sodium 25 mcg QAM PO 10/17/24 07:00 Levothyroxine Sodium 50 mcg QAM PO 10/17/24 07:00 Insulin Human Regular ACHS SC 10/16/24 17:00 10/17/24 18:12 4 UNITS Diagnostic Test (Pha) 1 strip ACHS 10/16/24 17:00 10/17/24 17:00 1 STRIP Examination: GENERAL:Normal, LUNGS:Normal, CVS:Normal, ABDOMEN:Normal, SKIN:Normal laboratory and microbiology Laboratory Tests 10/17/24 10:58 10/17/24 04:39 Test 10/17/24 10:58 Range/Units Serum Glucose 291 H 74-106 mg/dL Labs and/or images reviewed: Labs reviewed by me, Image(s) reviewed by me Problem List/Assessment/Plan Problem List/Assessment/Plan 1. GI bleed Monitor, stool for OB, GI consult 2. Acute blood loss anemia Monitor, transfuse 1 unit PRBC 3. DIANN with VMN Monitor, IV fluids 4. Uncontrolled DM II Monitor, insulin ss 5. Acute cystitis with hematuria Monitor, IV abx 6. Dementia Monitor, PPI 7. Metabolic encephalopathy Monitor neurostatus 8. Pleural effusion Monitor 9. Chest pain Monitor, cardiology consult, echocardiogram 10. A-fib RVR Monitor, amio protocol, cardiology consult Assessment/Plan Subjective Patient is awake and alert. Objective Patient was admitted on October 15, 2024 for black tarry stools. Patient was found to have a GI bleed, acute blood loss anemia, DIANN most likely due to vasomotor nephropathy, and acute cystitis with hematuria. Patient also developed A-fib with RVR. Patient has uncontrolled diabetes. Glucose levels was in the 500s. Patient had a noted history of dementia however family noted she was more confused than her baseline. Patient was found to have metabolic encephalopathy related to infection and acute kidney injury. Patient underwent upper endoscopy and was found to have hiatal hernia without esophagitis, small gastric polyps and biopsies were taken out however there was no evidence of acute bleeding. Plan Cardiology consult. Amiodarone per protocol. GI consult for GI bleed. Hemoglobin is stable at 10.2. Monitor renal status. Nephrology consult. Gentle IV hydration. Insulin sliding scale. IV antibiotics for acute cystitis. Monitor pleural effusion. Cathartics as needed for constipation. await clearance from GI for anticoagulation. Plan discussed with: Patient, Other Plan discussed with: Patient Dietary Evaluation Review Comments: CCHO-60g renal Specific 50g Protein diet texture as tolerated when medically feasible. Expected Outcomes/Goals: controlled DM, less uremic symptoms, maintain BW. Date of Service: Oct 17, 2024 Billing Provider: JOHN RIOS MD Common Visit Codes: 84137-FZIQKEO INP/OBS CARE (MOD) JAIMIE MONTES ROUGHER MACHINE OPERATOR Oct 17, 2024 19:43
[2024-10-18] VITALS (8 sets, daily range): BP systolic 106–138; BP diastolic 60–91; PULSE 80–102; RESP 16–20; TEMP 97.8–98.9; O2SAT 93–100
[2024-10-18 08:18] LABS: Basophils # (auto) 0.1 10 ^3/uL (0-0.2); Eosinophils # (auto) 0.2 10 ^3/uL (0-0.8); Eosinophils % (auto) 2.9 % (0.0-7.0); Hemoglobin 9.4 g/dL (12.2-16.2); Lymphocytes # (auto) 1.4 10 ^3/uL (0.4-5.4); Lymphocytes % (auto) 23.8 % (10.0-50.0); Mean Corpuscular Hgb Conc. 33.5 g/dL (32.0-36.0); Mean Corpuscular Volume 80.6 fL (80.0-100.0); Monocytes # (auto) 0.4 10 ^3/uL (0-1.3); Monocytes % (auto) 6.5 % (0.0-12.0); Neutrophils % (auto) 65.8 % (37.0-80.0); Nucleated Red Blood Cells % 0.1 %; Platelet Count (auto) 239 10^3/uL (140-450); Red Blood Cells 3.48 10^6/uL (4.0-5.20); Red Cell Distribution Width 15.8 % (11.8-14.3); White Blood Cell 6.1 10^3/uL (4.4-10.8)
[2024-10-18 08:31] LABS: Anion Gap 10 (5-15); Calcium 8.9 mg/dL (8.7-10.4); Carbon Dioxide 22 mmol/L (20-31); Chloride 106 mmol/L (98-107); Potassium 3.8 mmol/L (3.5-5.1); Sodium 138 mmol/L (136-145)
[2024-10-18 08:37] LABS: BUN/Creatinine Ratio 14.6 (10.0-20.0)
[2024-10-18 08:40] LABS: Blood Urea Nitrogen 25 mg/dL (9-23); Glucose 189 mg/dL (74-106)
[2024-10-18] MEDS ORDERED: LORazepam 2MG/ML-1ML VIAL IV PRN (09:45)
--- NOTE | 2024-10-18 09:49 | DVHPN2 ---
Progress Note - Dictate Date Seen: Oct 18, 2024 Medical Necessity Reason Pt with a Central, PICC or Fol: No vital signs Vital Sign Date Time Temp Pulse Resp B/P (MAP) Pulse Ox O2 Delivery O2 Flow Rate FiO2 10/18/24 05:00 97.8 80 17 112/69 (83) 99 97.8 10/17/24 16:17 Nasal Cannula 2.0 98 Total Intake and Output 10/17/24 10/17/24 10/18/24 15:00 23:00 07:00 Intake Total 150 ml 100 ml Output Total 250 ml 250 ml Balance -100 ml -150 ml medications Current Medications Medications Dose Ordered Sig/Jackeline Route Start Time Stop Time Status Last Admin Dose Admin Ondansetron HCl 4 mg Q4HP PRN IV 10/15/24 22:00 Morphine Sulfate 2 mg Q4HPRN PRN IV 10/15/24 22:00 Nitroglycerin 0.4 mg Q5MINP PRN SL 10/15/24 22:00 Morphine Sulfate 2 mg Q30M PRN IV 10/15/24 22:00 Pantoprazole Sodium 40 mg BID IV 10/16/24 10:00 10/17/24 21:40 40 MG Dextrose 50 ml UD PRN IV 10/15/24 22:00 Hydralazine HCl 10 mg Q6HP PRN IV 10/15/24 22:00 Ceftriaxone Sodium 50 ml @ 100 mls/hr DAILY@09 IV 10/16/24 10:30 10/17/24 11:27 100 MLS/HR Carvedilol 12.5 mg BID PO 10/16/24 10:30 10/17/24 21:41 12.5 MG Patient Own Medication 10 mg DAILY PO 10/16/24 10:30 UNV Patient Own Medication 1 tab QAM PO 10/17/24 07:00 UNV Amlodipine Besylate 10 mg DAILY PO 10/17/24 10:00 10/17/24 09:01 10 MG Levothyroxine Sodium 25 mcg QAM PO 10/17/24 07:00 Levothyroxine Sodium 50 mcg QAM PO 10/17/24 07:00 Insulin Human Regular ACHS SC 10/16/24 17:00 10/18/24 06:19 3 UNITS Diagnostic Test (Pha) 1 strip ACHS 10/16/24 17:00 10/18/24 06:18 1 STRIP Iron Sucrose 110 ml @ 110 mls/hr DAILY@1200 IV 10/18/24 12:00 10/22/24 12:59 laboratory and microbiology Laboratory Tests 10/18/24 06:06 Test 10/18/24 06:06 Range/Units Serum Glucose 189 H 74-106 mg/dL Assessment/Plan Patient was a 84-year-old female who presented to the hospital for generalized weakness and dark stool. She was poor historian. She does have advanced dementia. She also speaks Ecuadorean. She was found to have anemia and has received blood transfusion in emergency room. On arrival, the patient was found to have atrial fibrillation with RVR and was started on IV amiodarone. Cardiology was involved for cardiac has been of care. Patient herself is not informative to provide previous cardiac history. There was reported atrial fibrillation in the chart as past medical history. No detail previous history is available to review and comment on. Somehow confused female. Lying flat in bed. Not in acute distress. No JVD. Mucosa is wet. Mucosa is pale. Eyes not parallel. Not using accessory muscles of breathing. Lungs are clear to auscultation. Cardiac: Irregular, no thrill. Systolic murmur 3/6 in the apex is heard. Abdomen is soft and distended. Bowel sounds positive. Mild periumbilical tenderness is elicited. There was no rebound tenderness. There was no gross mass. Extremities reveal 2+ edema bilaterally. Right lower extremity is under dressing. Reported past medical history includes hypertension, diabetes mellitus, CKD, anemia, CHF, atrial fibrillation, advanced dementia, hypothyroidism, old history of blood transfusion and chronic respiratory failure on home oxygen. Hemoglobin: 7.3 - 7.3 - 10.1 - 9.4 Creatinine: 1.9 - 1.67 - 1.72 - 1.71 Potassium: 3.7 - 3.1 - 4.2 - 3.8 Sodium: 130 - 138 - 137 - 138 BNP: 416.33 - 449.91 Troponin (high sensitive): 13 TSH: 3.32 Chest x-ray revealed: IMPRESSION: Small left-sided pleural effusion and/or atelectasis superimposed infection not excluded Abdomen and pelvis CT scan revealed: Patient has cardiomegaly with a significant pericardial effusion adjacent to the left heart. Follow-up cardiac echo is suggested further assessment. Are dense calcifications in the left anterior descending coronary artery, left circumflex and also the aortic valve and right coronary artery as well.1 lung bases are suggestive of pulmonary vascular congestion. Stomach demonstrates lack of rugae suggesting possible chronic gastritis. Kidneys are atrophied kidneys have simple cysts. Pancreas appears TB partially atrophied. The common bile duct is enlarged measuring 12.7 mm in caliber. Patient has a moderately large stool burden. The uterus is atrophied no evidence for gastrointestinal obstruction Patient has osteopenia involving the vertebral bodies with significant anterior wedging of T11 and probably developing compression fracture involving L2. Appendix is normal. There are no diverticuli appreciated. Patient has intramedullary ankit involving the right femur. IMPRESSION: Moderately heavy stool burden. Patient appears to have effaced rugae in the stomach which may indicate chronic gastritis May relate to patient's symptoms. Common bile duct is dilated. Patient has atrophied kidneys and maybe developing multiple compression fractures involving the thoracolumbar spine EKG revealed atrial fibrillation with RVR Telemetry reveals atrial fibrillation with moderate ventricular response Echocardiogram reported: Left ventricle: Mild concentric left ventricular hypertrophy was seen. LVEF was 45-50%. Mild diffuse hypokinesis of left ventricle was seen. Right ventricle was normal sized with normal systolic function. Mild biatrial enlargement was seen. Aortic valve was trileaflet. There was mild aortic insufficiency. There was no aortic stenosis. There was [id number] mitral regurgitation. There was mild tricuspid regurgitation. There was mild pulmonary valve insufficiency. There was moderate pericardial effusion. There was no echocardiographic evidence for tamponade. Right ventricular systolic pressure was assessed at 50 mm Hg. Patient was a 84-year-old female who is poor historian. Reported past medical history includes atrial fibrillation, heart failure, advanced dementia, hypertension and diabetes mellitus. Patient was presented with anemia and tarry stool. Has received blood transfusion for GI bleeding. On presentation, the patient had atrial fibrillation with RVR. Patient reportedly has history of atrial fibrillation. Atrial fibrillation with RVR Significant anemia GI bleeding Dementia, advanced CHF, history of, diastolic Hypertension Hyperlipidemia CKD DIANN and CKD Hypothyroidism Obesity Pericardial effusion, moderate in size Pulmonary hypertension, possibly type 2 s/p EGD by GI Gastric polyps mild gastritis Hiatal hernia, small Cardiac suggestion for management: Manage on telemetry Follow up electrolytes and kidney function tests and correct abnormalities. Keep potassium above four and magnesium above two Amiodarone (give IV and oral Amio today) Recognizing comorbidities, the patient's CHADS-VASc score is high and long-term full anticoagulation as advised. Suggestion is to restart anticoagulation after GI clearance Evaluation and management of DIANN/CKD as per primary team/nephrology Further evaluation and management depends on the above and clinical course A total of 55 minutes was spent reviewing the patient record, examining the patient, making a diagnostic and therapeutic plan, discussing this plan with medical personnel, following up on diagnostic studies and following the patient for clinical stability excluding any and all procedures. At least 50% of this time was spent in direct, [id number] contact. Thank you for allowing me to participate in this patient's care. Further recommendations will depend on patient's clinical course. Please do not hesitate to contact me if you have any questions or concerns. This medical document was created using electronic medical record system with [employer] computerized dictation system. Although this document has been carefully reviewed, there may still be some phonetic and typographical errors. These areas are purely typographical due to the imperfection of the software programs, and do not reflect any compromise in the patient's medical care. Dietary Evaluation Review Comments: CCHO-60g renal Specific 50g Protein diet texture as tolerated when medically feasible. Expected Outcomes/Goals: controlled DM, less uremic symptoms, maintain BW. Plan discussed with: Other (nurse) CALVIN GARCIA MD Oct 18, 2024 09:49
[2024-10-18] MEDS: IRON SUCROSE COMPLEX 110 ML IV SCH (13:09)
[2024-10-18] MEDS: ONDANSETRON HCL 4 MG/2 ML VIAL IV PRN (14:31)
--- NOTE | 2024-10-18 15:06 | DVHPN2 ---
Progress Note - Dictate Date Seen: Oct 18, 2024 Medical Necessity Reason Pt with a Central, PICC or Fol: No Subjective Confused. vital signs Vital Sign Date Time Temp Pulse Resp B/P (MAP) Pulse Ox O2 Delivery O2 Flow Rate FiO2 10/18/24 14:25 102 106/60 10/18/24 05:00 97.8 17 99 97.8 10/17/24 16:17 Nasal Cannula 2.0 98 Total Intake and Output 10/17/24 10/17/24 10/18/24 15:00 23:00 07:00 Intake Total 150 ml 100 ml Output Total 250 ml 250 ml Balance -100 ml -150 ml medications Current Medications Medications Dose Ordered Sig/Jackeline Route Start Time Stop Time Status Last Admin Dose Admin Ondansetron HCl 4 mg Q4HP PRN IV 10/15/24 22:00 10/18/24 14:31 4 MG Morphine Sulfate 2 mg Q4HPRN PRN IV 10/15/24 22:00 Nitroglycerin 0.4 mg Q5MINP PRN SL 10/15/24 22:00 Morphine Sulfate 2 mg Q30M PRN IV 10/15/24 22:00 Pantoprazole Sodium 40 mg BID IV 10/16/24 10:00 10/18/24 09:54 40 MG Dextrose 50 ml UD PRN IV 10/15/24 22:00 Hydralazine HCl 10 mg Q6HP PRN IV 10/15/24 22:00 Ceftriaxone Sodium 50 ml @ 100 mls/hr DAILY@09 IV 10/16/24 10:30 10/18/24 09:54 100 MLS/HR Carvedilol 12.5 mg BID PO 10/16/24 10:30 10/18/24 09:55 12.5 MG Patient Own Medication 10 mg DAILY PO 10/16/24 10:30 UNV Patient Own Medication 1 tab QAM PO 10/17/24 07:00 UNV Amlodipine Besylate 10 mg DAILY PO 10/17/24 10:00 10/18/24 09:55 10 MG Levothyroxine Sodium 25 mcg QAM PO 10/17/24 07:00 Levothyroxine Sodium 50 mcg QAM PO 10/17/24 07:00 Insulin Human Regular ACHS SC 10/16/24 17:00 10/18/24 13:09 3 UNITS Diagnostic Test (Pha) 1 strip ACHS 10/16/24 17:00 10/18/24 11:30 1 STRIP Iron Sucrose 110 ml @ 110 mls/hr DAILY@1200 IV 10/18/24 12:00 10/22/24 12:59 10/18/24 13:09 110 MLS/HR Lorazepam 1 mg ONCE PRN IV 10/18/24 09:45 10/21/24 23:55 Amiodarone HCl 200 mg BID PO 10/18/24 22:00 Future Hold objective HEENT: No evidence of JVD, no oral ulcers. Pulmonary: Lungs are clear on auscultation bilaterally Cardiovascular S1-S2, no S3 or S4 Abdomen: Bowel sounds positive, soft no rebound tenderness Skin: No rash Neurological: Patient is drowsy laboratory and microbiology Laboratory Tests 10/18/24 06:06 Test 10/18/24 06:06 Range/Units Serum Glucose 189 H 74-106 mg/dL Assessment/Plan Assessment: 1. Acute kidney injury 2. Chronic kidney disease stage 3 Protein creatinine ratio is 4 g likely from diabetes Stable GFR 3. 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 Hypertension 6. Dementia Plan: Monitor H&H, transfuse as needed. Patient is on PPI. Urine culture Continue amlodipine, carvedilol Continue antihypertensive meds Empiric antibiotics No NSAIDs or IV contrast He prior to discharge patient will benefit from POOL inhibitor or ARB, potentially SGLT2 inhibitor as an outpatient Thank you very much for allowing us to participate in the care of this patient. Dietary Evaluation Review Comments: CCHO-60g renal Specific 50g Protein diet texture as tolerated when medically feasible. Expected Outcomes/Goals: controlled DM, less uremic symptoms, maintain BW. Plan discussed with: Patient RUY HARE MD Oct 18, 2024 15:06
--- NOTE | 2024-10-18 15:28 | DVHPN2 ---
Progress Note - Dictate Date Seen: Oct 18, 2024 Has the PT tested + for MRSA If YES, has PT been informed?: Yes Medical Necessity Reason Pt with a Central, PICC or Fol: No Subjective Patient has no further bleeding no nausea no vomiting but some mild abdominal discomfort vital signs Vital Sign Date Time Temp Pulse Resp B/P (MAP) Pulse Ox O2 Delivery O2 Flow Rate FiO2 10/18/24 14:25 102 106/60 10/18/24 05:00 97.8 17 99 97.8 10/17/24 16:17 Nasal Cannula 2.0 98 Total Intake and Output 10/17/24 10/17/24 10/18/24 15:00 23:00 07:00 Intake Total 150 ml 100 ml Output Total 250 ml 250 ml Balance -100 ml -150 ml medications Current Medications Medications Dose Ordered Sig/Jackeline Route Start Time Stop Time Status Last Admin Dose Admin Ondansetron HCl 4 mg Q4HP PRN IV 10/15/24 22:00 10/18/24 14:31 4 MG Morphine Sulfate 2 mg Q4HPRN PRN IV 10/15/24 22:00 Nitroglycerin 0.4 mg Q5MINP PRN SL 10/15/24 22:00 Morphine Sulfate 2 mg Q30M PRN IV 10/15/24 22:00 Pantoprazole Sodium 40 mg BID IV 10/16/24 10:00 10/18/24 09:54 40 MG Dextrose 50 ml UD PRN IV 10/15/24 22:00 Hydralazine HCl 10 mg Q6HP PRN IV 10/15/24 22:00 Ceftriaxone Sodium 50 ml @ 100 mls/hr DAILY@09 IV 10/16/24 10:30 10/18/24 09:54 100 MLS/HR Carvedilol 12.5 mg BID PO 10/16/24 10:30 10/18/24 09:55 12.5 MG Patient Own Medication 10 mg DAILY PO 10/16/24 10:30 UNV Patient Own Medication 1 tab QAM PO 10/17/24 07:00 UNV Amlodipine Besylate 10 mg DAILY PO 10/17/24 10:00 10/18/24 09:55 10 MG Levothyroxine Sodium 25 mcg QAM PO 10/17/24 07:00 Levothyroxine Sodium 50 mcg QAM PO 10/17/24 07:00 Insulin Human Regular ACHS SC 10/16/24 17:00 10/18/24 13:09 3 UNITS Diagnostic Test (Pha) 1 strip ACHS 10/16/24 17:00 10/18/24 11:30 1 STRIP Iron Sucrose 110 ml @ 110 mls/hr DAILY@1200 IV 10/18/24 12:00 10/22/24 12:59 10/18/24 13:09 110 MLS/HR Lorazepam 1 mg ONCE PRN IV 10/18/24 09:45 10/21/24 23:55 Amiodarone HCl 200 mg BID PO 10/18/24 22:00 Future Hold objective Abdomen is soft obese but no distention no rigidity no guarding EGD had shown small gastric polyps hyperplastic type as well as some gastritis biopsies are not back yet laboratory and microbiology Laboratory Tests 10/18/24 06:06 Test 10/18/24 06:06 Range/Units Serum Glucose 189 H 74-106 mg/dL Assessment/Plan 84-year-old female with complaints of dark stools and abdominal discomfort minimal unable to get much detailed history patient is a very poor historian the patient has got oxygen at home has got history of pretty bad congestive heart failure diabetes mellitus hypertension on home oxygen patient was also found to be apparently anemic chronically patient also has got dementia and longstanding atrial fibrillation. She was on Eliquis in the past. No gross GI bleeding at this time but had some dark stools hemoglobin was 7.5 white count is normal MCV is slightly decreased. Liver functions are normal Clinical impression EGD shown gastric polyps and gastritis no active active bleeding at this time Hemoglobin is stable If no further drop in hemoglobin tomorrow could consider anticoagulation with close observation for any gross bleeding and follow up of the hemoglobin closely Thank you Dr. Batista Dietary Evaluation Review Comments: CCHO-60g renal Specific 50g Protein diet texture as tolerated when medically feasible. Expected Outcomes/Goals: controlled DM, less uremic symptoms, maintain BW. Plan discussed with: Patient ROBYN BATISTA MD Oct 18, 2024 15:28
--- NOTE | 2024-10-18 17:16 | DVHPN2 ---
Progress Note Date Seen: Oct 18, 2024 Has the PT tested + for MRSA If YES, has PT been informed?: Yes Medical Necessity Reason Pt with a Central, PICC or Fol: No Subjective Review of Systems: Not Done (Patient is altered) Objective vital signs Vital Sign Date Time Temp Pulse Resp B/P (MAP) Pulse Ox O2 Delivery O2 Flow Rate FiO2 10/18/24 14:25 102 106/60 10/18/24 05:00 97.8 17 99 97.8 10/17/24 16:17 Nasal Cannula 2.0 98 Total Intake and Output 10/17/24 10/17/24 10/18/24 15:00 23:00 07:00 Intake Total 150 ml 100 ml Output Total 250 ml 250 ml Balance -100 ml -150 ml medications Current Medications Medications Dose Ordered Sig/Jackeline Route Start Time Stop Time Status Last Admin Dose Admin Ondansetron HCl 4 mg Q4HP PRN IV 10/15/24 22:00 10/18/24 14:31 4 MG Morphine Sulfate 2 mg Q4HPRN PRN IV 10/15/24 22:00 Nitroglycerin 0.4 mg Q5MINP PRN SL 10/15/24 22:00 Morphine Sulfate 2 mg Q30M PRN IV 10/15/24 22:00 Pantoprazole Sodium 40 mg BID IV 10/16/24 10:00 10/18/24 09:54 40 MG Dextrose 50 ml UD PRN IV 10/15/24 22:00 Hydralazine HCl 10 mg Q6HP PRN IV 10/15/24 22:00 Ceftriaxone Sodium 50 ml @ 100 mls/hr DAILY@09 IV 10/16/24 10:30 10/18/24 09:54 100 MLS/HR Carvedilol 12.5 mg BID PO 10/16/24 10:30 10/18/24 09:55 12.5 MG Patient Own Medication 10 mg DAILY PO 10/16/24 10:30 UNV Patient Own Medication 1 tab QAM PO 10/17/24 07:00 UNV Amlodipine Besylate 10 mg DAILY PO 10/17/24 10:00 10/18/24 09:55 10 MG Levothyroxine Sodium 25 mcg QAM PO 10/17/24 07:00 Levothyroxine Sodium 50 mcg QAM PO 10/17/24 07:00 Insulin Human Regular ACHS SC 10/16/24 17:00 10/18/24 13:09 3 UNITS Diagnostic Test (Pha) 1 strip ACHS 10/16/24 17:00 10/18/24 11:30 1 STRIP Iron Sucrose 110 ml @ 110 mls/hr DAILY@1200 IV 10/18/24 12:00 10/22/24 12:59 10/18/24 13:09 110 MLS/HR Lorazepam 1 mg ONCE PRN IV 10/18/24 09:45 10/21/24 23:55 Examination: GENERAL:Normal, LUNGS:Normal, CVS:Normal, ABDOMEN:Normal, SKIN:Normal, NEURO:Normal laboratory and microbiology Laboratory Tests 10/18/24 06:06 Test 10/18/24 06:06 Range/Units Serum Glucose 189 H 74-106 mg/dL Labs and/or images reviewed: Labs reviewed by me, Image(s) reviewed by me Problem List/Assessment/Plan Problem List/Assessment/Plan 1. GI bleed Monitor, stool for OB, GI consult 2. Acute blood loss anemia Monitor, transfuse 1 unit PRBC 3. DIANN with VMN Monitor, IV fluids 4. Uncontrolled DM II Monitor, insulin ss 5. Acute cystitis with hematuria Monitor, IV abx 6. Dementia Monitor, PPI 7. Metabolic encephalopathy Monitor neurostatus 8. Pleural effusion Monitor 9. Chest pain Monitor, cardiology consult, echocardiogram 10. A-fib RVR Monitor, amio protocol, cardiology consult Assessment/Plan Subjective Patient is awake and alert. Objective Patient was admitted on October 15, 2024 for black tarry stools. Patient was found to have a GI bleed, acute blood loss anemia, DIANN most likely due to vasomotor nephropathy, and acute cystitis with hematuria. Patient also developed A-fib with RVR. Patient has uncontrolled diabetes. Glucose levels was in the 500s. Patient had a noted history of dementia however family noted she was more confused than her baseline. Patient was found to have metabolic encephalopathy related to infection and acute kidney injury. Patient underwent upper endoscopy and was found to have hiatal hernia without esophagitis, small gastric polyps and biopsies were taken out however there was no evidence of acute bleeding. Per GIs know if hemoglobin is stable tomorrow patient can start anticoagulation. Plan Cardiology consult. Amiodarone per protocol. GI consult for GI bleed. Hemoglobin is stable at 9.4. Monitor renal status. Nephrology consult. Insulin sliding scale. IV antibiotics for acute cystitis. Monitor pleural effusion. Cathartics as needed for constipation. If hemoglobin is stable we will restart anticoagulation tomorrow. Pending brain MRI to rule out CVA as patient is currently in AFib with no anticoagulation. Plan discussed with: Patient, Other Plan discussed with: Patient My Orders My Orders Orders - JAIMIE MONTES Procedure Category Date Status Time Iron Sucrose Complex PHA 10/18/24 In Process (Venofer) 12:00 Urine Bacterial SAMMI 10/17/24 In Process Culture 20:36 Brain Head Wo Contrast MRI 10/18/24 Logged 09:35 Lorazepam 2mg/Ml Inj PHA 10/18/24 In Process (Ativan Inj) 09:45 Complete Blood Count LAB 10/19/24 Verified 05:00 Basic Metabolic Panel LAB 10/19/24 Verified 05:00 Dietary Evaluation Review Comments: CCHO-60g renal Specific 50g Protein diet texture as tolerated when medically feasible. Expected Outcomes/Goals: controlled DM, less uremic symptoms, maintain BW. Date of Service: Oct 18, 2024 Billing Provider: JOHN RIOS MD Common Visit Codes: [id number] INP/OBS CARE (MOD) JAIMIE MONTES Oct 18, 2024 17:16
[2024-10-18] MEDS ORDERED: AMIODARONE HCL 200 MG TAB PO SCH (22:00)
[2024-10-19] VITALS (8 sets, daily range): BP systolic 123–149; BP diastolic 48–89; PULSE 44–111; RESP 16–19; TEMP 98.8–98.9; O2SAT 93–100
[2024-10-19 06:52] LABS: Basophils # (auto) 0.1 10 ^3/uL (0-0.2); Eosinophils # (auto) 0.1 10 ^3/uL (0-0.8); Hemoglobin 9.4 g/dL (12.2-16.2); Neutrophils # (auto) 3.6 10 ^3/uL (1.6-8.6); Nucleated Red Blood Cells % 0.1 %; Red Cell Distribution Width 15.9 % (11.8-14.3); White Blood Cell 5.3 10^3/uL (4.4-10.8)
[2024-10-19 06:55] LABS: Basophils % (auto) 1.1 % (0.0-2.0); Eosinophils % (auto) 2.1 % (0.0-7.0); Hematocrit 28.5 % (36.0-46.0); Lymphocytes # (auto) 1.2 10 ^3/uL (0.4-5.4); Lymphocytes % (auto) 21.9 % (10.0-50.0); Mean Corpuscular Hemoglobin 26.6 pg (28.0-32.0); Mean Corpuscular Volume 80.5 fL (80.0-100.0); Monocytes # (auto) 0.4 10 ^3/uL (0-1.3); Monocytes % (auto) 6.8 % (0.0-12.0); Neutrophils % (auto) 68.1 % (37.0-80.0); Platelet Count (auto) 230 10^3/uL (140-450); Red Blood Cells 3.54 10^6/uL (4.0-5.20)
[2024-10-19 07:05] LABS: Anion Gap 11 (5-15); Carbon Dioxide 20 mmol/L (20-31); Potassium 3.7 mmol/L (3.5-5.1); Sodium 139 mmol/L (136-145)
[2024-10-19 07:10] LABS: Calcium 8.5 mg/dL (8.7-10.4); Chloride 108 mmol/L (98-107)
[2024-10-19 07:11] LABS: BUN/Creatinine Ratio 12.8 (10.0-20.0)
[2024-10-19 07:15] LABS: Blood Urea Nitrogen 24 mg/dL (9-23); Glucose 149 mg/dL (74-106)
--- NOTE | 2024-10-19 08:12 | DVHPN2 ---
Progress Note - Dictate Date Seen: Oct 19, 2024 Has the PT tested + for MRSA If YES, has PT been informed?: Yes Medical Necessity Reason Pt with a Central, PICC or Fol: No vital signs Vital Sign Date Time Temp Pulse Resp B/P (MAP) Pulse Ox O2 Delivery O2 Flow Rate FiO2 10/19/24 05:00 98.9 45 16 142/48 (79) 100 98.9 10/18/24 20:00 Nasal Cannula* 2 28 Total Intake and Output 10/18/24 10/18/24 10/19/24 15:00 23:00 07:00 Intake Total 210 ml 500 ml 100 ml Output Total 300 ml 250 ml Balance 210 ml 200 ml -150 ml medications Current Medications Medications Dose Ordered Sig/Jackeline Route Start Time Stop Time Status Last Admin Dose Admin Ondansetron HCl 4 mg Q4HP PRN IV 10/15/24 22:00 10/18/24 14:31 4 MG Morphine Sulfate 2 mg Q4HPRN PRN IV 10/15/24 22:00 Nitroglycerin 0.4 mg Q5MINP PRN SL 10/15/24 22:00 Morphine Sulfate 2 mg Q30M PRN IV 10/15/24 22:00 Pantoprazole Sodium 40 mg BID IV 10/16/24 10:00 10/18/24 22:15 40 MG Dextrose 50 ml UD PRN IV 10/15/24 22:00 Hydralazine HCl 10 mg Q6HP PRN IV 10/15/24 22:00 Ceftriaxone Sodium 50 ml @ 100 mls/hr DAILY@09 IV 10/16/24 10:30 10/18/24 09:54 100 MLS/HR Patient Own Medication 10 mg DAILY PO 10/16/24 10:30 UNV Patient Own Medication 1 tab QAM PO 10/17/24 07:00 UNV Amlodipine Besylate 10 mg DAILY PO 10/17/24 10:00 10/18/24 09:55 10 MG Levothyroxine Sodium 25 mcg QAM PO 10/17/24 07:00 10/19/24 06:30 25 MCG Levothyroxine Sodium 50 mcg QAM PO 10/17/24 07:00 10/19/24 06:30 50 MCG Insulin Human Regular ACHS SC 10/16/24 17:00 10/18/24 22:19 2 UNITS Diagnostic Test (Pha) 1 strip ACHS 10/16/24 17:00 10/19/24 06:19 1 STRIP Iron Sucrose 110 ml @ 110 mls/hr DAILY@1200 IV 10/18/24 12:00 10/22/24 12:59 10/18/24 13:09 110 MLS/HR Lorazepam 1 mg ONCE PRN IV 10/18/24 09:45 10/21/24 23:55 laboratory and microbiology Laboratory Tests 10/19/24 06:17 Test 10/19/24 06:17 Range/Units Serum Glucose 149 H 74-106 mg/dL Assessment/Plan Patient was a 84-year-old female who presented to the hospital for generalized weakness and dark stool. She was poor historian. She does have advanced dementia. She also speaks Nepali. She was found to have anemia and has received blood transfusion in emergency room. On arrival, the patient was found to have atrial fibrillation with RVR and was started on IV amiodarone. Cardiology was involved for cardiac has been of care. Patient herself is not informative to provide previous cardiac history. There was reported atrial fibrillation in the chart as past medical history. No detail previous history is available to review and comment on. Somehow confused female. Lying flat in bed. Not in acute distress. No JVD. Mucosa is wet. Mucosa is pale. Eyes not parallel. Not using accessory muscles of breathing. Lungs are clear to auscultation. Cardiac: Irregular, no thrill. Systolic murmur 3/6 in the apex is heard. Abdomen is soft and distended. Bowel sounds positive. Mild periumbilical tenderness is elicited. There was no rebound tenderness. There was no gross mass. Extremities reveal 2+ edema bilaterally. Right lower extremity is under dressing. Reported past medical history includes hypertension, diabetes mellitus, CKD, anemia, CHF, atrial fibrillation, advanced dementia, hypothyroidism, old history of blood transfusion and chronic respiratory failure on home oxygen. Hemoglobin: 7.3 - 7.3 - 10.1 - 9.4 - 9.4Creatinine: 1.9 - 1.67 - 1.72 - 1.71 - 1.88 Potassium: 3.7 - 3.1 - 4.2 - 3.8 - 3.7 Sodium: 130 - 138 - 137 - 138 - 139 BNP: 416.33 - 449.91 Troponin (high sensitive): 13 TSH: 3.32 Chest x-ray revealed: IMPRESSION: Small left-sided pleural effusion and/or atelectasis superimposed infection not excluded Abdomen and pelvis CT scan revealed: Patient has cardiomegaly with a significant pericardial effusion adjacent to the left heart. Follow-up cardiac echo is suggested further assessment. Are dense calcifications in the left anterior descending coronary artery, left circumflex and also the aortic valve and right coronary artery as well.1 lung bases are suggestive of pulmonary vascular congestion. Stomach demonstrates lack of rugae suggesting possible chronic gastritis. Kidneys are atrophied kidneys have simple cysts. Pancreas appears TB partially atrophied. The common bile duct is enlarged measuring 12.7 mm in caliber. Patient has a moderately large stool burden. The uterus is atrophied no evidence for gastrointestinal obstruction Patient has osteopenia involving the vertebral bodies with significant anterior wedging of T11 and probably developing compression fracture involving L2. Appendix is normal. There are no diverticuli appreciated. Patient has intramedullary ankit involving the right femur. IMPRESSION: Moderately heavy stool burden. Patient appears to have effaced rugae in the stomach which may indicate chronic gastritis May relate to patient's symptoms. Common bile duct is dilated. Patient has atrophied kidneys and maybe developing multiple compression fractures involving the thoracolumbar spine EKG revealed atrial fibrillation with RVR Telemetry reveals atrial fibrillation with moderate ventricular response. Converted to junctional, had episodes of pause and went to sinus bradycardia. Echocardiogram reported: Left ventricle: Mild concentric left ventricular hypertrophy was seen. LVEF was 45-50%. Mild diffuse hypokinesis of left ventricle was seen. Right ventricle was normal sized with normal systolic function. Mild biatrial enlargement was seen. Aortic valve was trileaflet. There was mild aortic insufficiency. There was no aortic stenosis. There was [id number] mitral regurgitation. There was mild tricuspid regurgitation. There was mild pulmonary valve insufficiency. There was moderate pericardial effusion. There was no echocardiographic evidence for tamponade. Right ventricular systolic pressure was assessed at 50 mm Hg. Patient was a 84-year-old female who is poor historian. Reported past medical history includes atrial fibrillation, heart failure, advanced dementia, hypertension and diabetes mellitus. Patient was presented with anemia and tarry stool. Has received blood transfusion for GI bleeding. On presentation, the patient had atrial fibrillation with RVR. Patient reportedly has history of atrial fibrillation. Converted to junctional rhythm, had episodes of pause and went to sinus bradycardia. Atrial fibrillation with RVR Significant anemia GI bleeding Dementia, advanced CHF, history of, diastolic Hypertension Hyperlipidemia CKD DIANN and CKD Hypothyroidism Obesity Pericardial effusion, moderate in size Pulmonary hypertension, possibly type 2 s/p EGD by GI Gastric polyps mild gastritis Hiatal hernia, small Cardiac suggestion for management: Manage on telemetry Follow up electrolytes and kidney function tests and correct abnormalities. Keep potassium above four and magnesium above two Amiodarone: 200 mg daily To avoid beta-rashmi for now. Recognizing comorbidities, the patient's CHADS-VASc score is high and long-term full anticoagulation as advised. Suggestion is to restart anticoagulation after GI clearance Evaluation and management of DIANN/CKD as per primary team/nephrology Further evaluation and management depends on the above and clinical course A total of 55 minutes was spent reviewing the patient record, examining the patient, making a diagnostic and therapeutic plan, discussing this plan with medical personnel, following up on diagnostic studies and following the patient for clinical stability excluding any and all procedures. At least 50% of this time was spent in direct, [id number] contact. Thank you for allowing me to participate in this patient's care. Further recommendations will depend on patient's clinical course. Please do not hesitate to contact me if you have any questions or concerns. This medical document was created using electronic medical record system with [employer] computerized dictation system. Although this document has been carefully reviewed, there may still be some phonetic and typographical errors. These areas are purely typographical due to the imperfection of the software programs, and do not reflect any compromise in the patient's medical care. Dietary Evaluation Review Comments: CCHO-60g renal Specific 50g Protein diet texture as tolerated when medically feasible. Expected Outcomes/Goals: controlled DM, less uremic symptoms, maintain BW. Plan discussed with: Other (nurse) CALVIN GARCIA MD Oct 19, 2024 08:12
[2024-10-19] MEDS: AMIODARONE HCL 200 MG TAB PO SCH (11:50)
--- NOTE | 2024-10-19 14:17 | DVH ---
EXAM: MRI BRAIN HEAD WO CONTRAST HISTORY: r.o cva COMPARISON: None TECHNIQUE: MRI was performed utilizing multiple appropriate imaging planes and pulse sequences. FINDINGS: SUPRATENTORIAL REGION: No evidence for acute ischemia or intracranial hemorrhage. Scattered ill-defi contreras FLAIR hyperintensities are noted within the bilateral periventricular region, dominguez radiata and subcortical white matter. Punctate foci hemosiderin deposit noted in the bilateral thalami and left l entiform nucleus. POSTERIOR FOSSA: Unremarkable. BRAINSTEM: Unremarkable. SELLAR/SUPRASELLAR REGION: Unremarkable. VENTRICLES, CISTERNS, SULCI: Age-appropriate. ORBITS: Left thesis bulbi. PARANASAL SINUSES: Mild ethmoid and left maxillary sinus disease. MASTOID AIR CELLS: Unremarkable. VASCULATURE: Unremarkable. BONES/ SOFT TISSUES: Unremarkable. OTHER: None. IMPRESSION: 1. No acute intracranial process identified. 2. Moderate global cortical atrophy and chronic microvascular ischemic changes. 3. Punctate foci of micro bleed in the the bilateral thalami and left lentiform nucleus likely sequel a of chronic hypertension.
--- NOTE | 2024-10-19 14:24 | DVHPN2 ---
Progress Note Date Seen: Oct 19, 2024 Has the PT tested + for MRSA If YES, has PT been informed?: Yes Medical Necessity Reason Pt with a Central, PICC or Fol: No Subjective Review of Systems: Not Done (Altered) Objective vital signs Vital Sign Date Time Temp Pulse Resp B/P (MAP) Pulse Ox O2 Delivery O2 Flow Rate FiO2 10/19/24 09:10 128/80 10/19/24 08:00 46 10/19/24 08:00 Nasal Cannula* 2 28 10/19/24 05:00 98.9 16 100 98.9 Total Intake and Output 10/18/24 10/18/24 10/19/24 15:00 23:00 07:00 Intake Total 210 ml 500 ml 100 ml Output Total 300 ml 250 ml Balance 210 ml 200 ml -150 ml medications Current Medications Medications Dose Ordered Sig/Jackeline Route Start Time Stop Time Status Last Admin Dose Admin Ondansetron HCl 4 mg Q4HP PRN IV 10/15/24 22:00 10/19/24 13:02 4 MG Morphine Sulfate 2 mg Q4HPRN PRN IV 10/15/24 22:00 Nitroglycerin 0.4 mg Q5MINP PRN SL 10/15/24 22:00 Morphine Sulfate 2 mg Q30M PRN IV 10/15/24 22:00 Pantoprazole Sodium 40 mg BID IV 10/16/24 10:00 10/19/24 09:10 40 MG Dextrose 50 ml UD PRN IV 10/15/24 22:00 Hydralazine HCl 10 mg Q6HP PRN IV 10/15/24 22:00 Ceftriaxone Sodium 50 ml @ 100 mls/hr DAILY@09 IV 10/16/24 10:30 10/19/24 09:10 100 MLS/HR Patient Own Medication 10 mg DAILY PO 10/16/24 10:30 UNV Patient Own Medication 1 tab QAM PO 10/17/24 07:00 UNV Amlodipine Besylate 10 mg DAILY PO 10/17/24 10:00 10/19/24 09:10 10 MG Levothyroxine Sodium 25 mcg QAM PO 10/17/24 07:00 10/19/24 06:30 25 MCG Levothyroxine Sodium 50 mcg QAM PO 10/17/24 07:00 10/19/24 06:30 50 MCG Insulin Human Regular ACHS SC 10/16/24 17:00 10/19/24 13:03 6 UNITS Diagnostic Test (Pha) 1 strip ACHS 10/16/24 17:00 10/19/24 11:30 1 STRIP Iron Sucrose 110 ml @ 110 mls/hr DAILY@1200 IV 10/18/24 12:00 10/22/24 12:59 10/19/24 13:01 110 MLS/HR Lorazepam 1 mg ONCE PRN IV 10/18/24 09:45 10/21/24 23:55 Amiodarone HCl 200 mg DAILY PO 10/19/24 10:00 10/19/24 11:50 200 MG Examination: GENERAL:Normal, LUNGS:Normal, LUNGS:Abnormal, ABDOMEN:Normal, SKIN:Normal, NEURO:Abnormal (Altered) laboratory and microbiology Laboratory Tests 10/19/24 06:17 Test 10/19/24 06:17 Range/Units Serum Glucose 149 H 74-106 mg/dL Microbiology Date/Time Source Procedure Growth Status 10/18/24 07:20 Urine - [place] Urine Culture - Preliminary Resulted Labs and/or images reviewed: Labs reviewed by me, Image(s) reviewed by me Problem List/Assessment/Plan Problem List/Assessment/Plan 1. GI bleed Monitor, stool for OB, GI consult 2. Acute blood loss anemia Monitor, transfuse 1 unit PRBC 3. DIANN with VMN Monitor, IV fluids 4. Uncontrolled DM II Monitor, insulin ss 5. Acute cystitis with hematuria Monitor, IV abx 6. Dementia Monitor, PPI 7. Metabolic encephalopathy Monitor neurostatus 8. Pleural effusion Monitor 9. Chest pain Monitor, cardiology consult, echocardiogram 10. A-fib RVR Monitor, amio protocol, cardiology consult Assessment/Plan Subjective Patient is awake and alert. Objective Patient was admitted on October 15, 2024 for black tarry stools. Patient was found to have a GI bleed, acute blood loss anemia, DIANN most likely due to vasomotor nephropathy, and acute cystitis with hematuria. Patient also developed A-fib with RVR. Patient has uncontrolled diabetes. Glucose levels was in the 500s. Patient had a noted history of dementia however family noted she was more confused than her baseline. Patient was found to have metabolic encephalopathy related to infection and acute kidney injury. Patient underwent upper endoscopy and was found to have hiatal hernia without esophagitis, small gastric polyps and biopsies were taken out however there was no evidence of acute bleeding. Hemoglobin remains stable at 9.4, as patient has high Tim Vasc score however, Brain MRI shows punctate foci of microbleed in bilateral thalami and left lentiform nucleus.Will obtain clearance from neurology for anticoagulation. patient became bradycardic today and amiodarone drip was stopped by lining layer, cardiology place patient on oral amiodarone at 200 mg daily. Plan Cardiology consult. Amiodarone per protocol. GI consult for GI bleed. Hemoglobin is stable at 9.4. Monitor renal status. Nephrology consult. Insulin sliding scale. IV antibiotics for acute cystitis. Monitor pleural effusion. Cathartics as needed for constipation. continue to hold anticougulation, will consult neurology for clearance. Plan discussed with: Patient, Other Plan discussed with: Other (RN) My Orders My Orders Orders - JAIMIE MONTES Procedure Category Date Status Time Soft Diet DIET 10/18/24 Transmitted Dinner Communication Order ORDERS 10/19/24 Transmitted 06:45 Dietary Evaluation Review Comments: CCHO-60g renal Specific 50g Protein diet texture as tolerated when medically feasible. Expected Outcomes/Goals: controlled DM, less uremic symptoms, maintain BW. Date of Service: Oct 19, 2024 Billing Provider: JOHN RIOS MD Common Visit Codes: [id number] INP/OBS CARE (MOD) JAIMIE MONTES Oct 19, 2024 14:24
--- NOTE | 2024-10-19 16:00 | DVHPN2 ---
Progress Note - Dictate Date Seen: Oct 19, 2024 Has the PT tested + for MRSA If YES, has PT been informed?: Yes Medical Necessity Reason Pt with a Central, PICC or Fol: No Subjective Patient has no further bleeding no nausea no vomiting but some mild abdominal discomfort Tolerating feeds well Hemoglobin stable vital signs Vital Sign Date Time Temp Pulse Resp B/P (MAP) Pulse Ox O2 Delivery O2 Flow Rate FiO2 10/19/24 09:10 128/80 10/19/24 08:00 46 10/19/24 08:00 Nasal Cannula* 2 28 10/19/24 05:00 98.9 16 100 98.9 Total Intake and Output 10/18/24 10/18/24 10/19/24 15:00 23:00 07:00 Intake Total 210 ml 500 ml 100 ml Output Total 300 ml 250 ml Balance 210 ml 200 ml -150 ml medications Current Medications Medications Dose Ordered Sig/Jackeline Route Start Time Stop Time Status Last Admin Dose Admin Ondansetron HCl 4 mg Q4HP PRN IV 10/15/24 22:00 10/19/24 13:02 4 MG Morphine Sulfate 2 mg Q4HPRN PRN IV 10/15/24 22:00 Nitroglycerin 0.4 mg Q5MINP PRN SL 10/15/24 22:00 Morphine Sulfate 2 mg Q30M PRN IV 10/15/24 22:00 Pantoprazole Sodium 40 mg BID IV 10/16/24 10:00 10/19/24 09:10 40 MG Dextrose 50 ml UD PRN IV 10/15/24 22:00 Hydralazine HCl 10 mg Q6HP PRN IV 10/15/24 22:00 Ceftriaxone Sodium 50 ml @ 100 mls/hr DAILY@09 IV 10/16/24 10:30 10/19/24 09:10 100 MLS/HR Patient Own Medication 10 mg DAILY PO 10/16/24 10:30 UNV Patient Own Medication 1 tab QAM PO 10/17/24 07:00 UNV Amlodipine Besylate 10 mg DAILY PO 10/17/24 10:00 10/19/24 09:10 10 MG Levothyroxine Sodium 25 mcg QAM PO 10/17/24 07:00 10/19/24 06:30 25 MCG Levothyroxine Sodium 50 mcg QAM PO 10/17/24 07:00 10/19/24 06:30 50 MCG Insulin Human Regular ACHS SC 10/16/24 17:00 10/19/24 13:03 6 UNITS Diagnostic Test (Pha) 1 strip ACHS 10/16/24 17:00 10/19/24 11:30 1 STRIP Iron Sucrose 110 ml @ 110 mls/hr DAILY@1200 IV 10/18/24 12:00 10/22/24 12:59 10/19/24 13:01 110 MLS/HR Lorazepam 1 mg ONCE PRN IV 10/18/24 09:45 10/21/24 23:55 Amiodarone HCl 200 mg DAILY PO 10/19/24 10:00 10/19/24 11:50 200 MG Apixaban 5 mg BID PO 10/19/24 22:00 UNV objective Abdomen is soft obese but no distention no rigidity no guarding EGD had shown small gastric polyps hyperplastic type as well as some gastritis biopsies are not back yet Hemoglobin is stable no gross bleeding tolerating feeds laboratory and microbiology Laboratory Tests 10/19/24 06:17 Test 10/19/24 06:17 Range/Units Serum Glucose 149 H 74-106 mg/dL Assessment/Plan 84-year-old female with complaints of dark stools and abdominal discomfort minimal unable to get much detailed history patient is a very poor historian the patient has got oxygen at home has got history of pretty bad congestive heart failure diabetes mellitus hypertension on home oxygen patient was also found to be apparently anemic chronically patient also has got dementia and longstanding atrial fibrillation. She was on Eliquis in the past. No gross GI bleeding at this time but had some dark stools hemoglobin was 7.5 white count is normal MCV is slightly decreased. Liver functions are normal Clinical impression EGD shown gastric polyps and gastritis no active active bleeding at this time Hemoglobin is stable Could start anticoagulants should with close follow-up of the for bleed watch occult Close follow-up of the hemoglobin watch closely for bleeding. Denies bleeding recurs may have to stop the anticoagulation and look at the colon also to ensure there is no other lesions but for the time being patient is too unstable for bowel prep and any other endoscopic intervention Patient does not want any endoscopy evaluation for colon at this time will recommend to start the anticoagulation and see Thank you Dr. Batista Dietary Evaluation Review Comments: CCHO-60g renal Specific 50g Protein diet texture as tolerated when medically feasible. Expected Outcomes/Goals: controlled DM, less uremic symptoms, maintain BW. Plan discussed with: Patient ROBYN BATISTA MD Oct 19, 2024 16:00
--- NOTE | 2024-10-19 16:22 | DVHPN2 ---
Progress Note - Dictate Date Seen: Oct 19, 2024 Has the PT tested + for MRSA If YES, has PT been informed?: Yes Medical Necessity Reason Pt with a Central, PICC or Fol: No Subjective No acute events overnight. vital signs Vital Sign Date Time Temp Pulse Resp B/P (MAP) Pulse Ox O2 Delivery O2 Flow Rate FiO2 10/19/24 09:10 128/80 10/19/24 08:00 46 10/19/24 08:00 Nasal Cannula* 2 28 10/19/24 05:00 98.9 16 100 98.9 Total Intake and Output 10/18/24 10/18/24 10/19/24 15:00 23:00 07:00 Intake Total 210 ml 500 ml 100 ml Output Total 300 ml 250 ml Balance 210 ml 200 ml -150 ml medications Current Medications Medications Dose Ordered Sig/Jackeline Route Start Time Stop Time Status Last Admin Dose Admin Ondansetron HCl 4 mg Q4HP PRN IV 10/15/24 22:00 10/19/24 13:02 4 MG Morphine Sulfate 2 mg Q4HPRN PRN IV 10/15/24 22:00 Nitroglycerin 0.4 mg Q5MINP PRN SL 10/15/24 22:00 Morphine Sulfate 2 mg Q30M PRN IV 10/15/24 22:00 Pantoprazole Sodium 40 mg BID IV 10/16/24 10:00 10/19/24 09:10 40 MG Dextrose 50 ml UD PRN IV 10/15/24 22:00 Hydralazine HCl 10 mg Q6HP PRN IV 10/15/24 22:00 Ceftriaxone Sodium 50 ml @ 100 mls/hr DAILY@09 IV 10/16/24 10:30 10/19/24 09:10 100 MLS/HR Patient Own Medication 10 mg DAILY PO 10/16/24 10:30 UNV Patient Own Medication 1 tab QAM PO 10/17/24 07:00 UNV Amlodipine Besylate 10 mg DAILY PO 10/17/24 10:00 10/19/24 09:10 10 MG Levothyroxine Sodium 25 mcg QAM PO 10/17/24 07:00 10/19/24 06:30 25 MCG Levothyroxine Sodium 50 mcg QAM PO 10/17/24 07:00 10/19/24 06:30 50 MCG Insulin Human Regular ACHS SC 10/16/24 17:00 10/19/24 13:03 6 UNITS Diagnostic Test (Pha) 1 strip ACHS 10/16/24 17:00 10/19/24 11:30 1 STRIP Iron Sucrose 110 ml @ 110 mls/hr DAILY@1200 IV 10/18/24 12:00 10/22/24 12:59 10/19/24 13:01 110 MLS/HR Lorazepam 1 mg ONCE PRN IV 10/18/24 09:45 10/21/24 23:55 Amiodarone HCl 200 mg DAILY PO 10/19/24 10:00 10/19/24 11:50 200 MG Apixaban 5 mg BID PO 10/19/24 22:00 UNV objective HEENT: No evidence of JVD, no oral ulcers. Pulmonary: Lungs are clear on auscultation bilaterally Cardiovascular S1-S2, no S3 or S4 Abdomen: Bowel sounds positive, soft no rebound tenderness Skin: No rash Neurological: Patient is drowsy laboratory and microbiology Laboratory Tests 10/19/24 06:17 Test 10/19/24 06:17 Range/Units Serum Glucose 149 H 74-106 mg/dL Assessment/Plan Assessment: 1. Acute kidney injury 2. Chronic kidney disease stage 3 Protein creatinine ratio is 4 g likely from diabetes Stable GFR 3. 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 Hypertension 6. Dementia Plan: Monitor H&H, transfuse as needed. Patient is on PPI. MRI showing sequela from chronic hypertension Continue amlodipine, carvedilol Continue antihypertensive meds Empiric antibiotics No NSAIDs or IV contrast Upon discharge consider low-dose POOL inhibitor or ARB. Thank you very much for allowing us to participate in the care of this patient. Dietary Evaluation Review Comments: CCHO-60g renal Specific 50g Protein diet texture as tolerated when medically feasible. Expected Outcomes/Goals: controlled DM, less uremic symptoms, maintain BW. Plan discussed with: Patient RUY HARE MD Oct 19, 2024 16:22
[2024-10-19] MEDS ORDERED: APIXABAN 5 MG TAB PO SCH (22:00)
[2024-10-20] VITALS (8 sets, daily range): BP systolic 119–154; BP diastolic 39–93; PULSE 52–62; RESP 16–17; TEMP 98.2–98.6; O2SAT 94–99
[2024-10-20 06:47] LABS: Basophils # (auto) 0 10 ^3/uL (0-0.2); Eosinophils # (auto) 0.1 10 ^3/uL (0-0.8); Lymphocytes # (auto) 1.1 10 ^3/uL (0.4-5.4); Monocytes # (auto) 0.4 10 ^3/uL (0-1.3); Monocytes % (auto) 6.1 % (0.0-12.0); Neutrophils # (auto) 4.5 10 ^3/uL (1.6-8.6); Nucleated Red Blood Cells % 0.1 %; White Blood Cell 6.1 10^3/uL (4.4-10.8)
[2024-10-20 06:50] LABS: Albumin 3.4 g/dL (3.2-4.8); Anion Gap 12 (5-15); Sodium 141 mmol/L (136-145); Total Protein 6.4 g/dL (5.7-8.2)
[2024-10-20 06:51] LABS: Basophils % (auto) 0.8 % (0.0-2.0); Eosinophils % (auto) 1.8 % (0.0-7.0); Hematocrit 28.7 % (36.0-46.0); Hemoglobin 9.4 g/dL (12.2-16.2); Lymphocytes % (auto) 17.9 % (10.0-50.0); Mean Corpuscular Hemoglobin 26.2 pg (28.0-32.0); Mean Corpuscular Hgb Conc. 32.7 g/dL (32.0-36.0); Mean Corpuscular Volume 80.1 fL (80.0-100.0); Neutrophils % (auto) 73.4 % (37.0-80.0); Platelet Count (auto) 220 10^3/uL (140-450); Potassium 3.4 mmol/L (3.5-5.1); Red Blood Cells 3.58 10^6/uL (4.0-5.20); Red Cell Distribution Width 15.9 % (11.8-14.3)
[2024-10-20 06:52] LABS: Alkaline Phosphatase 89 U/L (46-116)
[2024-10-20 06:54] LABS: Aspartate Aminotransferase 11 U/L (13-40); Blood Urea Nitrogen 25 mg/dL (9-23); Carbon Dioxide 19 mmol/L (20-31); Chloride 110 mmol/L (98-107); Glucose 115 mg/dL (74-106)
[2024-10-20 06:55] LABS: Alanine Aminotransferase < 9 U/L (7-40); Bilirubin, Total 0.2 mg/dL (0.2-1.0); Calcium 8.6 mg/dL (8.7-10.4)
--- NOTE | 2024-10-20 07:57 | DVHPN2 ---
Progress Note - Dictate Date Seen: Oct 20, 2024 Has the PT tested + for MRSA If YES, has PT been informed?: Yes Medical Necessity Reason Pt with a Central, PICC or Fol: No vital signs Vital Sign Date Time Temp Pulse Resp B/P (MAP) Pulse Ox O2 Delivery O2 Flow Rate FiO2 10/20/24 05:00 98.3 55 16 147/56 (86) 98 98.3 10/19/24 20:00 Nasal Cannula* 2 28 Total Intake and Output 10/19/24 10/19/24 10/20/24 15:00 23:00 07:00 Intake Total 160 ml 290 ml 180 ml Output Total 102 ml 250 ml Balance 160 ml 188 ml -70 ml medications Current Medications Medications Dose Ordered Sig/Jackeline Route Start Time Stop Time Status Last Admin Dose Admin Ondansetron HCl 4 mg Q4HP PRN IV 10/15/24 22:00 10/19/24 13:02 4 MG Morphine Sulfate 2 mg Q4HPRN PRN IV 10/15/24 22:00 Nitroglycerin 0.4 mg Q5MINP PRN SL 10/15/24 22:00 Morphine Sulfate 2 mg Q30M PRN IV 10/15/24 22:00 Pantoprazole Sodium 40 mg BID IV 10/16/24 10:00 10/19/24 23:29 40 MG Dextrose 50 ml UD PRN IV 10/15/24 22:00 Hydralazine HCl 10 mg Q6HP PRN IV 10/15/24 22:00 Ceftriaxone Sodium 50 ml @ 100 mls/hr DAILY@09 IV 10/16/24 10:30 10/19/24 09:10 100 MLS/HR Patient Own Medication 10 mg DAILY PO 10/16/24 10:30 UNV Patient Own Medication 1 tab QAM PO 10/17/24 07:00 UNV Amlodipine Besylate 10 mg DAILY PO 10/17/24 10:00 10/19/24 09:10 10 MG Levothyroxine Sodium 25 mcg QAM PO 10/17/24 07:00 10/20/24 06:31 25 MCG Levothyroxine Sodium 50 mcg QAM PO 10/17/24 07:00 10/20/24 06:31 50 MCG Insulin Human Regular ACHS SC 10/16/24 17:00 10/19/24 17:58 2 UNITS Diagnostic Test (Pha) 1 strip ACHS 10/16/24 17:00 10/20/24 05:57 1 STRIP Iron Sucrose 110 ml @ 110 mls/hr DAILY@1200 IV 10/18/24 12:00 10/22/24 12:59 10/19/24 13:01 110 MLS/HR Lorazepam 1 mg ONCE PRN IV 10/18/24 09:45 10/21/24 23:55 Amiodarone HCl 200 mg DAILY PO 10/19/24 10:00 10/19/24 11:50 200 MG Apixaban 5 mg BID PO 10/19/24 22:00 UNV laboratory and microbiology Laboratory Tests 10/20/24 06:18 Test 10/20/24 06:18 Range/Units Serum Glucose 115 H 74-106 mg/dL Assessment/Plan Patient was a 84-year-old female who presented to the hospital for generalized weakness and dark stool. She was poor historian. She does have advanced dementia. She also speaks [place]an. She was found to have anemia and has received blood transfusion in emergency room. On arrival, the patient was found to have atrial fibrillation with RVR and was started on IV amiodarone. Cardiology was involved for cardiac has been of care. Patient herself is not informative to provide previous cardiac history. There was reported atrial fibrillation in the chart as past medical history. No detail previous history is available to review and comment on. Somehow confused female. Lying flat in bed. Not in acute distress. No JVD. Mucosa is wet. Mucosa is pale. Eyes not parallel. Not using accessory muscles of breathing. Lungs are clear to auscultation. Cardiac: Irregular, no thrill. Systolic murmur 3/6 in the apex is heard. Abdomen is soft and distended. Bowel sounds positive. Mild periumbilical tenderness is elicited. There was no rebound tenderness. There was no gross mass. Extremities reveal 2+ edema bilaterally. Right lower extremity is under dressing. Reported past medical history includes hypertension, diabetes mellitus, CKD, anemia, CHF, atrial fibrillation, advanced dementia, hypothyroidism, old history of blood transfusion and chronic respiratory failure on home oxygen. Hemoglobin: 7.3 - 7.3 - 10.1 - 9.4 - 9.4 - 9.4 Creatinine: 1.9 - 1.67 - 1.72 - 1.71 - 1.88 - 2.50 Potassium: 3.7 - 3.1 - 4.2 - 3.8 - 3.7 - 3.4 Sodium: 130 - 138 - 137 - 138 - 139 - 141 BNP: 416.33 - 449.91 Troponin (high sensitive): 13 TSH: 3.32 Chest x-ray revealed: IMPRESSION: Small left-sided pleural effusion and/or atelectasis superimposed infection not excluded Abdomen and pelvis CT scan revealed: Patient has cardiomegaly with a significant pericardial effusion adjacent to the left heart. Follow-up cardiac echo is suggested further assessment. Are dense calcifications in the left anterior descending coronary artery, left circumflex and also the aortic valve and right coronary artery as well.1 lung bases are suggestive of pulmonary vascular congestion. Stomach demonstrates lack of rugae suggesting possible chronic gastritis. Kidneys are atrophied kidneys have simple cysts. Pancreas appears TB partially atrophied. The common bile duct is enlarged measuring 12.7 mm in caliber. Patient has a moderately large stool burden. The uterus is atrophied no evidence for gastrointestinal obstruction Patient has osteopenia involving the vertebral bodies with significant anterior wedging of T11 and probably developing compression fracture involving L2. Appendix is normal. There are no diverticuli appreciated. Patient has intramedullary ankit involving the right femur. IMPRESSION: Moderately heavy stool burden. Patient appears to have effaced rugae in the stomach which may indicate chronic gastritis May relate to patient's symptoms. Common bile duct is dilated. Patient has atrophied kidneys and maybe developing multiple compression fractures involving the thoracolumbar spine MRI of brain revealed: IMPRESSION: 1. No acute intracranial process identified. 2. Moderate global cortical atrophy and chronic microvascular ischemic changes. 3. Punctate foci of micro bleed in the the bilateral thalami and left lentiform nucleus likely sequela of chronic hypertension. EKG revealed atrial fibrillation with RVR Telemetry reveals atrial fibrillation with moderate ventricular response. Converted to junctional, had episodes of pause and went to sinus bradycardia. Echocardiogram reported: Left ventricle: Mild concentric left ventricular hypertrophy was seen. LVEF was 45-50%. Mild diffuse hypokinesis of left ventricle was seen. Right ventricle was normal sized with normal systolic function. Mild biatrial enlargement was seen. Aortic valve was trileaflet. There was mild aortic insufficiency. There was no aortic stenosis. There was [id number] mitral regurgitation. There was mild tricuspid regurgitation. There was mild pulmonary valve insufficiency. There was moderate pericardial effusion. There was no echocardiographic evidence for tamponade. Right ventricular systolic pressure was assessed at 50 mm Hg. Patient was a 84-year-old female who is poor historian. Reported past medical history includes atrial fibrillation, heart failure, advanced dementia, hypertension and diabetes mellitus. Patient was presented with anemia and tarry stool. Has received blood transfusion for GI bleeding. On presentation, the patient had atrial fibrillation with RVR. Patient reportedly has history of atrial fibrillation. Converted to junctional rhythm, had episodes of pause and went to sinus bradycardia. Atrial fibrillation with RVR Significant anemia GI bleeding Dementia, advanced CHF, history of, diastolic Hypertension Hyperlipidemia CKD DIANN and CKD Hypothyroidism Obesity Pericardial effusion, moderate in size Pulmonary hypertension, possibly type 2 s/p EGD by GI Gastric polyps mild gastritis Hiatal hernia, small Cardiac suggestion for management: Manage on telemetry Follow up electrolytes and kidney function tests and correct abnormalities. Keep potassium above four and magnesium above two Amiodarone: 200 mg daily To avoid beta-rashmi for now. Recognizing comorbidities, the patient's CHADS-VASc score is high and long-term full anticoagulation as advised. Suggestion is to restart anticoagulation (GI gave permission) after Neurology permission. Evaluation and management of DIANN/CKD as per primary team/nephrology Further evaluation and management depends on the above and clinical course A total of 55 minutes was spent reviewing the patient record, examining the patient, making a diagnostic and therapeutic plan, discussing this plan with medical personnel, following up on diagnostic studies and following the patient for clinical stability excluding any and all procedures. At least 50% of this time was spent in direct, [id number] contact. Thank you for allowing me to participate in this patient's care. Further recommendations will depend on patient's clinical course. Please do not hesitate to contact me if you have any questions or concerns. This medical document was created using electronic medical record system with [employer] computerized dictation system. Although this document has been carefully reviewed, there may still be some phonetic and typographical errors. These areas are purely typographical due to the imperfection of the software programs, and do not reflect any compromise in the patient's medical care. Dietary Evaluation Review Comments: CCHO-60g renal Specific 50g Protein diet texture as tolerated when medically feasible. Expected Outcomes/Goals: controlled DM, less uremic symptoms, maintain BW. Plan discussed with: Other (nurse) CALVIN GARCIA MD Oct 20, 2024 07:57
--- NOTE | 2024-10-20 12:03 | DVHPN2 ---
Progress Note Date Seen: Oct 20, 2024 Resident Creating Document: YANY FU RESIDENT Has the PT tested + for MRSA If YES, has PT been informed?: Yes Medical Necessity Reason Pt with a Central, PICC or Fol: No Subjective Review of Systems Patient has no further bleeding no nausea no vomiting but some mild abdominal discomfort Tolerating food Hemoglobin stable, Objective vital signs Vital Sign Date Time Temp Pulse Resp B/P (MAP) Pulse Ox O2 Delivery O2 Flow Rate FiO2 10/20/24 09:59 154/39 10/20/24 09:00 98.3 54 17 94 98.3 10/19/24 20:00 Nasal Cannula* 2 28 Total Intake and Output 10/19/24 10/19/24 10/20/24 15:00 23:00 07:00 Intake Total 160 ml 290 ml 180 ml Output Total 102 ml 250 ml Balance 160 ml 188 ml -70 ml medications Current Medications Medications Dose Ordered Sig/Jackeline Route Start Time Stop Time Status Last Admin Dose Admin Ondansetron HCl 4 mg Q4HP PRN IV 10/15/24 22:00 10/19/24 13:02 4 MG Morphine Sulfate 2 mg Q4HPRN PRN IV 10/15/24 22:00 Nitroglycerin 0.4 mg Q5MINP PRN SL 10/15/24 22:00 Morphine Sulfate 2 mg Q30M PRN IV 10/15/24 22:00 Pantoprazole Sodium 40 mg BID IV 10/16/24 10:00 10/20/24 09:58 40 MG Dextrose 50 ml UD PRN IV 10/15/24 22:00 Hydralazine HCl 10 mg Q6HP PRN IV 10/15/24 22:00 Ceftriaxone Sodium 50 ml @ 100 mls/hr DAILY@09 IV 10/16/24 10:30 10/20/24 09:58 100 MLS/HR Patient Own Medication 10 mg DAILY PO 10/16/24 10:30 UNV Patient Own Medication 1 tab QAM PO 10/17/24 07:00 UNV Amlodipine Besylate 10 mg DAILY PO 10/17/24 10:00 10/20/24 09:59 10 MG Levothyroxine Sodium 25 mcg QAM PO 10/17/24 07:00 10/20/24 06:31 25 MCG Levothyroxine Sodium 50 mcg QAM PO 10/17/24 07:00 10/20/24 06:31 50 MCG Insulin Human Regular ACHS SC 10/16/24 17:00 10/19/24 17:58 2 UNITS Diagnostic Test (Pha) 1 strip ACHS 10/16/24 17:00 10/20/24 05:57 1 STRIP Iron Sucrose 110 ml @ 110 mls/hr DAILY@1200 IV 10/18/24 12:00 10/22/24 12:59 10/19/24 13:01 110 MLS/HR Lorazepam 1 mg ONCE PRN IV 10/18/24 09:45 10/21/24 23:55 Amiodarone HCl 200 mg DAILY PO 10/19/24 10:00 10/20/24 09:59 200 MG Apixaban 5 mg BID PO 10/19/24 22:00 UNV Examination HEENT: No evidence of JVD, no oral ulcers. Pulmonary: Lungs are clear on auscultation bilaterally Cardiovascular S1-S2, no S3 or S4 Abdomen: Bowel sounds positive, soft no rebound tenderness Skin: No rash Neurological: Patient is drowsy laboratory and microbiology Laboratory Tests 10/20/24 06:18 Test 10/20/24 06:18 Range/Units Serum Glucose 115 H 74-106 mg/dL Microbiology Date/Time Source Procedure Growth Status 10/18/24 07:20 Urine - [place] Urine Culture - Preliminary Resulted Problem List/Assessment/Plan Problem List/Assessment/Plan #Gastric polyps #Significant anemia #GI bleeding #mild gastritis #Hiatal hernia, small #Significant anemia #GI bleeding # Dementia, advanced # Atrial fibrillation with RVR # CHF, history of, diastolic # Hypertension # Hyperlipidemia # CKD # DIANN and CKD # Hypothyroidism #Obesity - s/p EGD on 10/17/2024 : Hiatal hernia without esophagitis, Small gastric polyps random biopsies taken. No active bleeding seen in the upper GI tract - Close follow-up of the hemoglobin - family is requesting conservative management, defer colonoscopy - continue Protonix - CEA ordered - B12, folic acid level - start the anticoagulation , closely monitor for GI bleed. Thank you so much for the opportunity to consult on your patient. GI team will follow the patient. In case of any questions or concerns please feel free to reach out. Case discussed with Dr. Giuseppe Santiago. The patient and caregiver team agreed to the plan. Plan discussed with: Patient Dietary Evaluation Review Comments: CCHO-60g renal Specific 50g Protein diet texture as tolerated when medically feasible. Expected Outcomes/Goals: controlled DM, less uremic symptoms, maintain BW. YANY FU RESIDENT Oct 20, 2024 12:03
[2024-10-20] MEDS: SOD CHL 0.45% 1,000 ML IV SCH (13:00)
--- NOTE | 2024-10-20 13:00 | DVHPN2 ---
Progress Note - Dictate Date Seen: Oct 20, 2024 Has the PT tested + for MRSA If YES, has PT been informed?: Yes Medical Necessity Reason Pt with a Central, PICC or Fol: No Subjective Patient is awake . Being fed by [employer] [facility] not accurately documented as [place] is leaking vital signs Vital Sign Date Time Temp Pulse Resp B/P (MAP) Pulse Ox O2 Delivery O2 Flow Rate FiO2 10/20/24 09:59 154/39 10/20/24 09:00 98.3 54 17 94 98.3 10/19/24 20:00 Nasal Cannula* 2 28 Total Intake and Output 10/19/24 10/19/24 10/20/24 15:00 23:00 07:00 Intake Total 160 ml 290 ml 180 ml Output Total 102 ml 250 ml Balance 160 ml 188 ml -70 ml medications Current Medications Medications Dose Ordered Sig/Jackeline Route Start Time Stop Time Status Last Admin Dose Admin Ondansetron HCl 4 mg Q4HP PRN IV 10/15/24 22:00 10/19/24 13:02 4 MG Morphine Sulfate 2 mg Q4HPRN PRN IV 10/15/24 22:00 Nitroglycerin 0.4 mg Q5MINP PRN SL 10/15/24 22:00 Morphine Sulfate 2 mg Q30M PRN IV 10/15/24 22:00 Pantoprazole Sodium 40 mg BID IV 10/16/24 10:00 10/20/24 09:58 40 MG Dextrose 50 ml UD PRN IV 10/15/24 22:00 Hydralazine HCl 10 mg Q6HP PRN IV 10/15/24 22:00 Ceftriaxone Sodium 50 ml @ 100 mls/hr DAILY@09 IV 10/16/24 10:30 10/20/24 09:58 100 MLS/HR Patient Own Medication 10 mg DAILY PO 10/16/24 10:30 UNV Patient Own Medication 1 tab QAM PO 10/17/24 07:00 UNV Amlodipine Besylate 10 mg DAILY PO 10/17/24 10:00 10/20/24 09:59 10 MG Levothyroxine Sodium 25 mcg QAM PO 10/17/24 07:00 10/20/24 06:31 25 MCG Levothyroxine Sodium 50 mcg QAM PO 10/17/24 07:00 10/20/24 06:31 50 MCG Insulin Human Regular ACHS SC 10/16/24 17:00 10/20/24 12:28 2 UNITS Diagnostic Test (Pha) 1 strip ACHS 10/16/24 17:00 10/20/24 11:30 1 STRIP Iron Sucrose 110 ml @ 110 mls/hr DAILY@1200 IV 10/18/24 12:00 10/22/24 12:59 10/20/24 12:27 110 MLS/HR Lorazepam 1 mg ONCE PRN IV 10/18/24 09:45 10/21/24 23:55 Amiodarone HCl 200 mg DAILY PO 10/19/24 10:00 10/20/24 09:59 200 MG Apixaban 5 mg BID PO 10/19/24 22:00 UNV objective HEENT: No evidence of JVD, no oral ulcers. Pulmonary: Lungs are clear on auscultation bilaterally Cardiovascular S1-S2, no S3 or S4 Abdomen: Bowel sounds positive, soft no rebound tenderness Skin: No rash Neurological: Awake and alert laboratory and microbiology Laboratory Tests 10/20/24 06:18 Test 10/20/24 06:18 Range/Units Serum Glucose 115 H 74-106 mg/dL Problem List 1. Acute kidney injury 2. 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 Anemia concerns for GI bleed 4. Diabetes mellitus with nephropathy 5. Hypertension 6. Dementia 7. Proteinuria of 4 gms Assessment/Plan Plan: Worsening GFR . Start 1/2 NS at 50 ml/hr . Labs in AM . Replace K Dietary Evaluation Review Comments: CCHO-60g renal Specific 50g Protein diet texture as tolerated when medically feasible. Expected Outcomes/Goals: controlled DM, less uremic symptoms, maintain BW. Plan discussed with: BROOKLYN Chou MD Oct 20, 2024 13:00
[2024-10-20 14:08] LABS: Carcinoembryonic Antigen 3.35 ng/mL (<=5.0); Folate (Folic Acid) 22.52 ng/mL (>5.38)
--- NOTE | 2024-10-20 14:42 | ECG ---
[facility] Test Date: 2024-10-19 Test Time: 00:57:12 Pat Name: AUGUSTUS BLACKWELL Department: Room: 0219T B Gender: F B[employer] Selector: : 1940 Requested By: CALVIN GARCIA Order Number: [id number] Reading MD: Bob Rosado Measurements Intervals [place] Rate: 41 P: 0 ND: 0 QRS: -27 QRSD: 96 T: 209 QT: 475 QTc: 393 Interpretive Statements Junctional rhythm Borderline left axis deviation Abnormal R-wave progression, late transition Repol abnrm suggests ischemia, lateral leads Electronically Signed On 10-20-2024 19:05:41 PDT by Bob Rosado Please click the below link to view image of tracing.
[2024-10-20] MEDS: POTASSIUM EFFERVESENT TAB 25 MEQ PO ONE (15:37)
--- NOTE | 2024-10-20 16:25 | DVHPN2 ---
Progress Note - Dictate Date Seen: Oct 20, 2024 Has the PT tested + for MRSA If YES, has PT been informed?: Yes Medical Necessity Reason Pt with a Central, PICC or Fol: No vital signs Vital Sign Date Time Temp Pulse Resp B/P (MAP) Pulse Ox O2 Delivery O2 Flow Rate FiO2 10/20/24 13:00 98.2 61 17 119/93 (102) 98 98.2 10/19/24 20:00 Nasal Cannula* 2 28 Total Intake and Output 10/19/24 10/19/24 10/20/24 15:00 23:00 07:00 Intake Total 160 ml 290 ml 180 ml Output Total 102 ml 250 ml Balance 160 ml 188 ml -70 ml medications Current Medications Medications Dose Ordered Sig/Jackeline Route Start Time Stop Time Status Last Admin Dose Admin Ondansetron HCl 4 mg Q4HP PRN IV 10/15/24 22:00 10/19/24 13:02 4 MG Morphine Sulfate 2 mg Q4HPRN PRN IV 10/15/24 22:00 Nitroglycerin 0.4 mg Q5MINP PRN SL 10/15/24 22:00 Morphine Sulfate 2 mg Q30M PRN IV 10/15/24 22:00 Pantoprazole Sodium 40 mg BID IV 10/16/24 10:00 10/20/24 09:58 40 MG Dextrose 50 ml UD PRN IV 10/15/24 22:00 Hydralazine HCl 10 mg Q6HP PRN IV 10/15/24 22:00 Ceftriaxone Sodium 50 ml @ 100 mls/hr DAILY@09 IV 10/16/24 10:30 10/20/24 09:58 100 MLS/HR Patient Own Medication 10 mg DAILY PO 10/16/24 10:30 UNV Patient Own Medication 1 tab QAM PO 10/17/24 07:00 UNV Amlodipine Besylate 10 mg DAILY PO 10/17/24 10:00 10/20/24 09:59 10 MG Levothyroxine Sodium 25 mcg QAM PO 10/17/24 07:00 10/20/24 06:31 25 MCG Levothyroxine Sodium 50 mcg QAM PO 10/17/24 07:00 10/20/24 06:31 50 MCG Insulin Human Regular ACHS SC 10/16/24 17:00 10/20/24 12:28 2 UNITS Diagnostic Test (Pha) 1 strip ACHS 10/16/24 17:00 10/20/24 11:30 1 STRIP Iron Sucrose 110 ml @ 110 mls/hr DAILY@1200 IV 10/18/24 12:00 10/22/24 12:59 10/20/24 12:27 110 MLS/HR Lorazepam 1 mg ONCE PRN IV 10/18/24 09:45 10/21/24 23:55 Amiodarone HCl 200 mg DAILY PO 10/19/24 10:00 10/20/24 09:59 200 MG Apixaban 5 mg BID PO 10/19/24 22:00 UNV Sodium Chloride 1,000 ml @ 50 mls/hr Q20H IV 10/20/24 13:00 10/20/24 13:00 50 MLS/HR objective General Appearance: alert, no distress HEENT: EOMI, PERRLA, normal external inspect of ears, no icterus, no nasal drainage Neck: no carotid bruit, no jugular venous distention (JVD), no lymphadenopathy Chest: normal thorax Respiratory: clear to auscultation, normal air movement Cardiovascular: regular rate and rhythm, no diastolic murmur, no jugular venous distention (JVD), no rub, no systolic murmur Abdominal: soft, no hepatomegaly, no mass, no splenomegaly, no tenderness Genitourinary: grossly normal external Musculoskeletal: no joint tenderness, no swelling Extremities: normal pulses, no calf tenderness, no clubbing, no cyanosis, no edema Skin: no bruising, no jaundice, no rash Neurological: alert, No focal deficit laboratory and microbiology Laboratory Tests 10/20/24 06:18 Test 10/20/24 06:18 Range/Units Serum Glucose 115 H 74-106 mg/dL Problem List 1. GI bleed Monitor, stool for OB, GI consult 2. Acute blood loss anemia Monitor, transfuse 1 unit PRBC 3. DIANN with VMN Monitor, IV fluids 4. Uncontrolled DM II Monitor, insulin ss 5. Acute cystitis with hematuria Monitor, IV abx 6. Dementia Monitor, PPI 7. Metabolic encephalopathy Monitor neurostatus 8. Pleural effusion Monitor 9. Chest pain Monitor, cardiology consult, echocardiogram 10. A-fib RVR Monitor, amio protocol, cardiology consult Assessment/Plan Subjective: Patient is awake and alert. Objective: Patient is [place]ish-speaking. A sitter is at bedside. She was admitted for DIANN with vasomotor nephropathy and has worsening renal function today. She was seen by nephrology and started on half-normal saline at 50 mL/hr. Patient was found to have acute cystitis and was started on Rocephin. She also had atrial fibrillation with RVR and was seen by cardiology. She is currently on amiodarone. The patient had acute blood loss anemia and a GI bleed, and she underwent an endoscopy. Findings included a hiatal hernia with esophagitis. Plan: Continue PPI. Monitor daily labs and renal function. Continue IV hydration. Monitor EKG. Continue insulin sliding scale for diabetes. Dietary Evaluation Review Comments: CCHO-60g renal Specific 50g Protein diet texture as tolerated when medically feasible. Expected Outcomes/Goals: controlled DM, less uremic symptoms, maintain BW. Plan discussed with: Patient, Other BROOKLYN ELIZABETH NP Oct 20, 2024 16:25
--- NOTE | 2024-10-20 22:13 | DVHINCON2 ---
Date of service: Oct 20, [address] Willard Galicia Reason for Consultation Clearance to start anticoagulation History of Present Illness Ms. Quinteros is a 84 years old female with a history of hypertension, diabetes, congestive heart failure, atrial fibrillation, hypothyroidism, anemia, the patient was was brought to the hospital on 10/15/2024 with a chief company of dark stool, in the hospital, the patient was considered to have GI bleeding, and Eliquis (2.5 mg b.i.d. according to her granddaughter), a medication for her atrial fibrillation has been hold, EGD on 10/17/24 she was no evidence active bleeding, in his note, GI specialist cleared anticoagulation on 10/20/2024 She has a progressive memory problems since 2016, at the beginning, it was short-term memory difficulty, but later long-term memory has been affected Since 2016, the patient was shuffles when she was walk, she has been using a walker since 2019, she was stopped walking since 2023 She was had urinary incontinence, maybe since 2022 or earlier She was remember her children, but not other names She has not bring her memory problem to her doctor attention, was not on demen tia treatment According to possibility of NPH on her MRI scan Urinalysis, 11/02/2024: WBC: 129, WBC: 3 +, WBC/HB/PLT/MCV, : 6.1/9.5/220/80.1 BUN/CR, 10/20/2024: 25/2.5 Liver function tests, 10/20/2024: Unremarkable TG/HDL/LDL/HDL, 10/16/2024: 118/1.8/102/29 Vitamin B12, 10/20/2024: 992 Folic acid, 10/20/2024: 22.5 TSH, 10/2024: 3.32 EKG, 11/02/2024: AFib EGD, 10/20/2024: EGD on 10/17/2024 : Hiatal hernia without esophagitis, Small gastric polyps random biopsies taken. No active bleeding seen in the upper GI tract Echocardiogram required, 11/02/2024: Left ventricle: Mild concentric left ventricular hypertrophy was seen. LVEF was 45-50%. Mild diffuse hypokinesis of left ventricle was seen. Right ventricle was normal sized with normal systolic function. Mild biatrial enlargement was seen. Aortic valve was trileaflet. There was mild aortic insufficiency. There was no aortic stenosis. There was [id number] mitral regurgitation. There was mild tricuspid regurgitation. There was mild pulmonary valve insufficiency. There was moderate pericardial effusion. There was no echocardiographic evidence for tamponade. Right ventricular systolic pressure was assessed at 50 mm Hg. MRI head, 10/19/2024: 1. No acute intracranial process identified. 2. Moderate global cortical atrophy and chronic microvascular ischemic changes. 3. 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 according to her Past Surgical History None Family History Hypertension, diabetes, no dementia Social History She has no history of tobacco smoking, drug abuse or abuse Allergies: Coded Allergies: No Known Drug Allergy (Verified Allergy, Unknown, 10/16/24) Home Meds Reported Medications Megestrol Acetate (Appetite) (Megestrol Acetate) 625 Mg/5 Ml [place] 10/15/24 Levothyroxine Sodium (Levothyroxine Sodium) 75 Mcg Tab, 1 TAB PO QAM 10/15/24 Amlodipine Besylate (Amlodipine Besylate) 10 Mg Tab, 1 DAILY 10/15/24 Carvedilol (Carvedilol) 12.5 Mg Tab 10/15/24 Current Medications Current Medications Medications (Trade) Dose Ordered Sig/Jackeline Route PRN Reason Start Time Stop Time Status Last Admin Sodium Chloride 1,000 ml @ 50 mls/hr Q20H IV 10/20/24 13:00 10/20/24 13:00 Review of Systems As above, the other systems are negative Vital Signs Vital Signs Date Time Temp Pulse Resp B/P (MAP) Pulse Ox O2 Delivery O2 Flow Rate FiO2 10/20/24 21:05 98.3 62 17 132/54 (80) 99 98.3 10/20/24 20:00 Nasal Cannula* 2 28 Physical Exam GENERAL EXAM: General: the patient is well developed and nourished. No acute distress. HEENT: Normocephalic, neck is supple, no carotid bruits. No mass. RESPIRATORY: Normal respiratory effort with symmetrical lung expansion. Lungs clear to auscultation. CARDIOVASCULAR: Regular rate and rhythm with no murmurs. S1, S2. ABDOMEN: Soft, nontender, normal bowel sound NEUROLOGICAL: MENTAL STATUS: Awake and alert. Oriented to herself personal history. The patient is aware of recent events SPEECH, LANGUAGE, HIGHER CORTICAL FUNCTION: no aphasia or dysathria. CRANIAL NERVES: #2: Intact visual prajapati to confrontation. Right eye is cloudy. No light perception in the left eye #3,4,6: Pupils are equal, round and reactive. EOMs full and conjugate #5: Facial sensation intact in all three divisions bilaterally. Mandibular strength intact. #7: Facial muscles symmetrical and strength intact. #8: Hearing grossly normal to voice. #9,10: Uvula and soft palate rise in the midline. Swallow and voice are normal. #11: Trapezius and sternomastoid strength intact bilaterally. #12: Tongue midline. No fasciculations or atrophy. SENSATION: Sensation to touch and pinprick is normal. MOTOR: Normal tone in the upper and lower extremity. Normal muscle bulk. No fasciculations. No abnormal movements or posturing. Muscle strength of the major groups in the upper extremities is 5/5. She moves both legs REFLEXES: Deep tendon reflexes normal and symmetrical. No pathological reflexes. CEREBELLAR/COORDINATION: Deferred, but no ataxia in the hands GAIT/STATION: deferred. Labs/Diagnostic Data Labs Test 10/20/24 17:22 10/20/24 12:45 10/20/24 06:18 10/16/24 08:26 Range/Units POC Glucose 120 H 70-106 mg/dl Carcinoembryonic Antigen 3.35 <=5.0 ng/mL Vitamin B12 Level 992 H 211-911 pg/mL Folic Acid 22.52 >5.38 ng/mL White Blood Count 6.1 4.4-10.8 10^3/uL Red Blood Count 3.58 L 4.0-5.20 10^6/uL Hemoglobin 9.4 L 12.2-16.2 g/dL Hematocrit 28.7 L 36.0-46.0 % Mean Corpuscular Volume 80.1 80.0-100.0 fL Mean Corpuscular Hemoglobin 26.2 L 28.0-32.0 pg Mean Corpuscular Hemoglobin Concent 32.7 32.0-36.0 g/dL Red Cell Distribution Width 15.9 H 11.8-14.3 % Platelet Count 220 140-450 10^3/uL Mean Platelet Volume 8.9 6.9-10.8 fL Neutrophils (%) (Auto) 73.4 37.0-80.0 % Lymphocytes (%) (Auto) 17.9 10.0-50.0 % Monocytes (%) (Auto) 6.1 0.0-12.0 % Eosinophils (%) (Auto) 1.8 0.0-7.0 % Basophils (%) (Auto) 0.8 0.0-2.0 % Neutrophils # (Auto) 4.5 1.6-8.6 10 ^3/uL Lymphocytes # (Auto) 1.1 0.4-5.4 10 ^3/uL Monocytes # (Auto) 0.4 0-1.3 10 ^3/uL Eosinophils # (Auto) 0.1 0-0.8 10 ^3/uL Basophils # (Auto) 0 0-0.2 10 ^3/uL Nucleated Red Blood Cells 0.1 % Sodium Level 141 136-145 mmol/L Potassium Level 3.4 L 3.5-5.1 mmol/L Chloride Level 110 H 98-107 mmol/L Carbon Dioxide Level 19 L 20-31 mmol/L Anion Gap 12 5-15 Blood Urea Nitrogen 25 H 9-23 mg/dL Creatinine 2.50 #H 0.550-1.02 mg/dL Glomerular Filtration Rate Calc 18 >90 mL/min BUN/Creatinine Ratio 10.0 10.0-20.0 Serum Glucose 115 H 74-106 mg/dL Calcium Level 8.6 L 8.7-10.4 mg/dL Total Bilirubin 0.2 0.2-1.0 mg/dL Aspartate Amino Transferase (AST) 11 L 13-40 U/L Alanine Aminotransferase (ALT) < 9 7-40 U/L Alkaline Phosphatase 89 46-116 U/L Total Protein 6.4 5.7-8.2 g/dL Albumin 3.4 3.2-4.8 g/dL Urine Color Colorless Yellow Urine Clarity Turbid H Clear Urine pH 5.5 5.0-9.0 Urine Specific [place] 1.010 1.001-1.035 Urine Protein 2+ H Negative Urine Ketones Negative Negative Urine Blood Trace H Negative /uL Urine Nitrite Negative Negative Urine Bilirubin Negative Negative Urine Urobilinogen Normal Negative mg/dL Urine Leukocyte Esterase 3+ Negative /uL Urine RBC 3 0 - 4 /hpf Urine WBC Clumps Present None Seen /hpf Urine Microscopic WBC 129 H 0-5 /HPF Urine Squamous Epithelial Cells Few <5 /hpf Urine Bacteria Many H None Seen /hpf Urine Mucus Few None Seen Urine Creatinine 42.34 30.0-125.0 mg/dL Urine Protein/Creatinine Ratio 4.71 Urine Glucose 1+ H Normal mg/dL Urine Total Protein 199.4 H 1-14 mg/dL Test 10/16/24 06:23 10/15/24 20:07 10/15/24 19:41 Range/Units Iron Level 26 L 50-170 ug/dL Total Iron Binding Capacity 289 250-425 ug/dL Percent Iron Saturation 9.0 L 15-50 % B-Type Natriuretic Peptide 449.91 0-100 pg/mL Triglycerides Level 118 < 150 mg/dL Cholesterol Level 148 < 200 mg/dL LDL Cholesterol 102 H < 100 mg/dL HDL Cholesterol 29 L 40-59 mg/dL Thyroid Stimulating Hormone (TSH) 3.32 0.55-4.78 uIU/mL Lactic Acid Level 0.9 0.4-2.0 mmol/L Magnesium Level 2.0 1.6-2.6 mg/dL Troponin I High Sensitivity 13 </=34 ng/L Beta-Hydroxybutyric Acid 0.158 < 0.4 mmol/L Blood Gas Specimen Type Arterial Blood Gas Sample Site Left radial Blood Gas Patient Temperature 37.0 Arterial Blood Date Drawn [id number] Arterial Blood pH 7.405 7.350-7.450 Arterial Blood Partial Pressure CO2 36.5 32.0-45.0 mmHg Arterial Blood Partial Pressure O2 86.0 83.0-108.0 mmHg Arterial Blood HCO3 22.4 21.0-28.0 mmol/L Arterial Blood Oxygen Saturation 96.0 94.0-98.0 % Arterial Blood Base Excess -2.1 L -2.0-3.0 mmol/L Arterial Blood Oxyhemoglobin 95.7 94.0-98.0 % Arterial Blood Carboxyhemoglobin 0.1 L 0.5-1.5 % Arterial Blood Methemoglobin 0.2 0.0-1.5 % James Test Modified Blood Gas Total Hemoglobin 8.40 L 12.0-16.0 g/dL Blood Gas Modality Nasal cannula FiO2 % 28.0 Microbiology Date/Time Source Procedure Growth Status 10/18/24 07:20 Urine - [place] Urine Culture - Preliminary Escherichia coli Resulted Assessment Atrial fibrillation, was on Eliquis 2.5 mg b.i.d. Abnormal MR brain, with diffuse atrophy, questionable NPH, possible punctate foci of micro bleeding in bilateral thalami in the left lentiform nucleus Dementia, she may have moderate degree of dementia, exertion unclear Gait disturbance Incontinence Rule out normal-pressure hydrocephalus Plan/Recommendation Monitoring Supportive treatment Telemetry Okay to resume Eliquis 2.5 mg b.i.d. from a neurologic point of view May consider dementia treatment later Given the degree of dementia, gait disturbance, and incontinence, this no treatment available for her questionable NPH More recommendation per clinical course Prognosis: Poor This medical document was created using an electronic medical record system with [employer] dictation system. Although this document has been carefully reviewed, there may still be some phonetic and typographical errors. These areas are purely typographical due to imperfections of the software programs, and do not reflect any compromise in the patient's medical care. Plan discussed with: Other JONY MONTAGUE MD Oct 20, 2024 22:13
[2024-10-21] VITALS (8 sets, daily range): BP systolic 98–179; BP diastolic 34–59; PULSE 47–62; RESP 15–19; TEMP 97.6–99.3; O2SAT 96–100
[2024-10-21 07:37] LABS: Anion Gap 11 (5-15); Carbon Dioxide 21 mmol/L (20-31); Potassium 3.6 mmol/L (3.5-5.1); Sodium 140 mmol/L (136-145)
--- NOTE | 2024-10-21 07:38 | DVHPN2 ---
Progress Note - Dictate Date Seen: Oct 21, 2024 Has the PT tested + for MRSA If YES, has PT been informed?: Yes Medical Necessity Reason Pt with a Central, PICC or Fol: No vital signs Vital Sign Date Time Temp Pulse Resp B/P (MAP) Pulse Ox O2 Delivery O2 Flow Rate FiO2 10/21/24 04:45 97.6 62 19 129/47 (74) 100 97.6 10/20/24 20:00 Nasal Cannula* 2 28 Total Intake and Output 10/20/24 10/20/24 10/21/24 15:00 23:00 07:00 Intake Total 160 ml 240 ml 240 ml Output Total 200 ml 350 ml Balance 160 ml 40 ml -110 ml medications Current Medications Medications Dose Ordered Sig/Jackeline Route Start Time Stop Time Status Last Admin Dose Admin Ondansetron HCl 4 mg Q4HP PRN IV 10/15/24 22:00 10/19/24 13:02 4 MG Morphine Sulfate 2 mg Q4HPRN PRN IV 10/15/24 22:00 Nitroglycerin 0.4 mg Q5MINP PRN SL 10/15/24 22:00 Morphine Sulfate 2 mg Q30M PRN IV 10/15/24 22:00 Pantoprazole Sodium 40 mg BID IV 10/16/24 10:00 10/20/24 22:00 40 MG Dextrose 50 ml UD PRN IV 10/15/24 22:00 Hydralazine HCl 10 mg Q6HP PRN IV 10/15/24 22:00 Ceftriaxone Sodium 50 ml @ 100 mls/hr DAILY@09 IV 10/16/24 10:30 10/20/24 09:58 100 MLS/HR Patient Own Medication 10 mg DAILY PO 10/16/24 10:30 UNV Patient Own Medication 1 tab QAM PO 10/17/24 07:00 UNV Amlodipine Besylate 10 mg DAILY PO 10/17/24 10:00 10/20/24 09:59 10 MG Levothyroxine Sodium 25 mcg QAM PO 10/17/24 07:00 10/21/24 06:31 25 MCG Levothyroxine Sodium 50 mcg QAM PO 10/17/24 07:00 10/21/24 06:31 50 MCG Insulin Human Regular ACHS SC 10/16/24 17:00 10/20/24 21:54 4 UNITS Diagnostic Test (Pha) 1 strip ACHS 10/16/24 17:00 10/21/24 06:32 1 STRIP Iron Sucrose 110 ml @ 110 mls/hr DAILY@1200 IV 10/18/24 12:00 10/22/24 12:59 10/20/24 12:27 110 MLS/HR Lorazepam 1 mg ONCE PRN IV 10/18/24 09:45 10/21/24 23:55 Amiodarone HCl 200 mg DAILY PO 10/19/24 10:00 10/20/24 09:59 200 MG Apixaban 5 mg BID PO 10/19/24 22:00 UNV Sodium Chloride 1,000 ml @ 50 mls/hr Q20H IV 10/20/24 13:00 10/20/24 13:00 50 MLS/HR laboratory and microbiology Laboratory Tests 10/20/24 06:18 Test 10/21/24 06:47 Range/Units Serum Glucose Pending Assessment/Plan Patient was a 84-year-old female who presented to the hospital for generalized weakness and dark stool. She was poor historian. She does have advanced dementia. She also speaks Brazilian. She was found to have anemia and has received blood transfusion in emergency room. On arrival, the patient was found to have atrial fibrillation with RVR and was started on IV amiodarone. Cardiology was involved for cardiac has been of care. Patient herself is not informative to provide previous cardiac history. There was reported atrial fibrillation in the chart as past medical history. No detail previous history is available to review and comment on. Somehow confused female. Lying flat in bed. Not in acute distress. No JVD. Mucosa is wet. Mucosa is pale. Eyes not parallel. Not using accessory muscles of breathing. Lungs are clear to auscultation. Cardiac: Irregular, no thrill. Systolic murmur 3/6 in the apex is heard. Abdomen is soft and distended. Bowel sounds positive. Mild periumbilical tenderness is elicited. There was no rebound tenderness. There was no gross mass. Extremities reveal 2+ edema bilaterally. Right lower extremity is under dressing. Reported past medical history includes hypertension, diabetes mellitus, CKD, anemia, CHF, atrial fibrillation, advanced dementia, hypothyroidism, old history of blood transfusion and chronic respiratory failure on home oxygen. Hemoglobin: 7.3 - 7.3 - 10.1 - 9.4 - 9.4 - 9.4 Creatinine: 1.9 - 1.67 - 1.72 - 1.71 - 1.88 - 2.50 - 2.34 Potassium: 3.7 - 3.1 - 4.2 - 3.8 - 3.7 - 3.4 - 3.6 Sodium: 130 - 138 - 137 - 138 - 139 - 141 - 140 BNP: 416.33 - 449.91 Troponin (high sensitive): 13 TSH: 3.32 Chest x-ray revealed: IMPRESSION: Small left-sided pleural effusion and/or atelectasis superimposed infection not excluded Abdomen and pelvis CT scan revealed: Patient has cardiomegaly with a significant pericardial effusion adjacent to the left heart. Follow-up cardiac echo is suggested further assessment. Are dense calcifications in the left anterior descending coronary artery, left circumflex and also the aortic valve and right coronary artery as well.1 lung bases are suggestive of pulmonary vascular congestion. Stomach demonstrates lack of rugae suggesting possible chronic gastritis. Kidneys are atrophied kidneys have simple cysts. Pancreas appears TB partially atrophied. The common bile duct is enlarged measuring 12.7 mm in caliber. Patient has a moderately large stool burden. The uterus is atrophied no evidence for gastrointestinal obstruction Patient has osteopenia involving the vertebral bodies with significant anterior wedging of T11 and probably developing compression fracture involving L2. Appendix is normal. There are no diverticuli appreciated. Patient has intramedullary ankit involving the right femur. IMPRESSION: Moderately heavy stool burden. Patient appears to have effaced rugae in the stomach which may indicate chronic gastritis May relate to patient's symptoms. Common bile duct is dilated. Patient has atrophied kidneys and maybe developing multiple compression fractures involving the thoracolumbar spine MRI of brain revealed: IMPRESSION: 1. No acute intracranial process identified. 2. Moderate global cortical atrophy and chronic microvascular ischemic changes. 3. Punctate foci of micro bleed in the the bilateral thalami and left lentiform nucleus likely sequela of chronic hypertension. EKG revealed atrial fibrillation with RVR Telemetry reveals atrial fibrillation with moderate ventricular response. Converted to junctional, had episodes of pause and went to sinus bradycardia. Echocardiogram reported: Left ventricle: Mild concentric left ventricular hypertrophy was seen. LVEF was 45-50%. Mild diffuse hypokinesis of left ventricle was seen. Right ventricle was normal sized with normal systolic function. Mild biatrial enlargement was seen. Aortic valve was trileaflet. There was mild aortic insufficiency. There was no aortic stenosis. There was [id number] mitral regurgitation. There was mild tricuspid regurgitation. There was mild pulmonary valve insufficiency. There was moderate pericardial effusion. There was no echocardiographic evidence for tamponade. Right ventricular systolic pressure was assessed at 50 mm Hg. Patient was a 84-year-old female who is poor historian. Reported past medical history includes atrial fibrillation, heart failure, advanced dementia, hypertension and diabetes mellitus. Patient was presented with anemia and tarry stool. Has received blood transfusion for GI bleeding. On presentation, the patient had atrial fibrillation with RVR. Patient reportedly has history of atrial fibrillation. Converted to junctional rhythm, had episodes of pause and went to sinus bradycardia. Atrial fibrillation with RVR Significant anemia GI bleeding Dementia, advanced CHF, history of, diastolic Hypertension Hyperlipidemia CKD DIANN and CKD Hypothyroidism Obesity Pericardial effusion, moderate in size Pulmonary hypertension, possibly type 2 s/p EGD by GI Gastric polyps mild gastritis Hiatal hernia, small Cardiac suggestion for management: Manage on telemetry Follow up electrolytes and kidney function tests and correct abnormalities. Keep potassium above four and magnesium above two Amiodarone: 200 mg daily To avoid beta-rashmi for now. Recognizing comorbidities, the patient's CHADS-VASc score is high and long-term full anticoagulation as advised. Suggestion is to restart full anticoagulation (GI and Neurology gave permission). Evaluation and management of DIANN/CKD as per primary team/nephrology Further evaluation and management depends on the above and clinical course A total of 55 minutes was spent reviewing the patient record, examining the patient, making a diagnostic and therapeutic plan, discussing this plan with medical personnel, following up on diagnostic studies and following the patient for clinical stability excluding any and all procedures. At least 50% of this time was spent in direct, [id number] contact. Thank you for allowing me to participate in this patient's care. Further recommendations will depend on patient's clinical course. Please do not hesitate to contact me if you have any questions or concerns. This medical document was created using electronic medical record system with [employer] dictation system. Although this document has been carefully reviewed, there may still be some phonetic and typographical errors. These areas are purely typographical due to the imperfection of the software programs, and do not reflect any compromise in the patient's medical care. Dietary Evaluation Review Comments: [facility] renal Specific 50g Protein diet texture as tolerated when medically feasible. Expected Outcomes/Goals: controlled DM, less uremic symptoms, maintain BW. Plan discussed with: Other (nurse) CALVIN GARCIA MD Oct 21, 2024 07:38
[2024-10-21 07:43] LABS: BUN/Creatinine Ratio 11.1 (10.0-20.0); Glucose 78 mg/dL (74-106)
[2024-10-21 07:44] LABS: Blood Urea Nitrogen 26 mg/dL (9-23); Calcium 8.3 mg/dL (8.7-10.4); Chloride 108 mmol/L (98-107)
--- NOTE | 2024-10-21 15:05 | DVHPN2 ---
Progress Note Date Seen: Oct 21, 2024 Resident Creating Document: YANY FU RESIDENT Has the PT tested + for MRSA If YES, has PT been informed?: Yes Medical Necessity Reason Pt with a Central, PICC or Fol: No Subjective Review of Systems Patient has no further bleeding no nausea no vomiting but some mild abdominal discomfort Tolerating food Hemoglobin stable, Objective vital signs Vital Sign Date Time Temp Pulse Resp B/P (MAP) Pulse Ox O2 Delivery O2 Flow Rate FiO2 10/21/24 13:00 99.2 58 16 98/34 (55) 98 99.2 10/20/24 20:00 Nasal Cannula* 2 28 Total Intake and Output 10/20/24 10/20/24 10/21/24 15:00 23:00 07:00 Intake Total 160 ml 240 ml 240 ml Output Total 200 ml 350 ml Balance 160 ml 40 ml -110 ml medications Current Medications Medications Dose Ordered Sig/Jackeline Route Start Time Stop Time Status Last Admin Dose Admin Ondansetron HCl 4 mg Q4HP PRN IV 10/15/24 22:00 10/19/24 13:02 4 MG Morphine Sulfate 2 mg Q4HPRN PRN IV 10/15/24 22:00 Nitroglycerin 0.4 mg Q5MINP PRN SL 10/15/24 22:00 Morphine Sulfate 2 mg Q30M PRN IV 10/15/24 22:00 Pantoprazole Sodium 40 mg BID IV 10/16/24 10:00 10/21/24 09:34 40 MG Dextrose 50 ml UD PRN IV 10/15/24 22:00 Hydralazine HCl 10 mg Q6HP PRN IV 10/15/24 22:00 Ceftriaxone Sodium 50 ml @ 100 mls/hr DAILY@09 IV 10/16/24 10:30 10/21/24 09:37 100 MLS/HR Patient Own Medication 10 mg DAILY PO 10/16/24 10:30 UNV Patient Own Medication 1 tab QAM PO 10/17/24 07:00 UNV Amlodipine Besylate 10 mg DAILY PO 10/17/24 10:00 10/21/24 09:37 10 MG Levothyroxine Sodium 25 mcg QAM PO 10/17/24 07:00 10/21/24 06:31 25 MCG Levothyroxine Sodium 50 mcg QAM PO 10/17/24 07:00 10/21/24 06:31 50 MCG Insulin Human Regular ACHS SC 10/16/24 17:00 10/21/24 12:47 2 UNITS Diagnostic Test (Pha) 1 strip ACHS 10/16/24 17:00 10/21/24 11:30 1 STRIP Iron Sucrose 110 ml @ 110 mls/hr DAILY@1200 IV 10/18/24 12:00 10/22/24 12:59 10/21/24 12:51 110 MLS/HR Lorazepam 1 mg ONCE PRN IV 10/18/24 09:45 10/21/24 23:55 Amiodarone HCl 200 mg DAILY PO 10/19/24 10:00 10/21/24 09:37 200 MG Apixaban 5 mg BID PO 10/19/24 22:00 UNV Sodium Chloride 1,000 ml @ 50 mls/hr Q20H IV 10/20/24 13:00 10/21/24 09:00 50 MLS/HR Apixaban 2.5 mg BID PO 10/21/24 22:00 Examination HEENT: No evidence of JVD, no oral ulcers. Pulmonary: Lungs are clear on auscultation bilaterally Cardiovascular S1-S2, no S3 or S4 Abdomen: Bowel sounds positive, soft no rebound tenderness Skin: No rash Neurological: Awake and alert. laboratory and microbiology Laboratory Tests 10/21/24 06:47 10/20/24 06:18 Test 10/21/24 06:47 Range/Units Serum Glucose 78 74-106 mg/dL Microbiology Date/Time Source Procedure Growth Status 10/18/24 07:20 Urine - [place] Urine Culture - Final Escherichia coli Presumptive Denita tropicalis Complete Problem List/Assessment/Plan Problem List/Assessment/Plan #Gastric polyps #Significant anemia #GI bleeding #mild gastritis #Hiatal hernia, small #Significant anemia #GI bleeding # Dementia, advanced # Atrial fibrillation with RVR # CHF, history of, diastolic # Hypertension # Hyperlipidemia # CKD # DIANN and CKD # Hypothyroidism #Obesity - s/p EGD on 10/17/2024 : Hiatal hernia without esophagitis, Small gastric polyps random biopsies taken. No active bleeding seen in the upper GI tract - Close follow-up of the hemoglobin - family is requesting conservative management, defer colonoscopy - continue Protonix - CEA ordered - B12, folic acid level - start the anticoagulation , closely monitor for GI bleed. Thank you so much for the opportunity to consult on your patient. GI team will follow the patient. In case of any questions or concerns please feel free to reach out. Case discussed with Dr. Giuseppe Santiago. The patient and caregiver team agreed to the plan. Plan discussed with: Patient Dietary Evaluation Review Comments: [facility]-60g renal Specific 50g Protein diet texture as tolerated when medically feasible. Expected Outcomes/Goals: controlled DM, less uremic symptoms, maintain BW. YANY FU RESIDENT Oct 21, 2024 15:05
--- NOTE | 2024-10-21 15:24 | DVHPN2 ---
Progress Note - Dictate Date Seen: Oct 21, 2024 Has the PT tested + for MRSA If YES, has PT been informed?: Yes Medical Necessity Reason Pt with a Central, PICC or Fol: No vital signs Vital Sign Date Time Temp Pulse Resp B/P (MAP) Pulse Ox O2 Delivery O2 Flow Rate FiO2 10/21/24 13:00 99.2 58 16 98/34 (55) 98 99.2 10/20/24 20:00 Nasal Cannula* 2 28 Total Intake and Output 10/20/24 10/20/24 10/21/24 15:00 23:00 07:00 Intake Total 160 ml 240 ml 240 ml Output Total 200 ml 350 ml Balance 160 ml 40 ml -110 ml medications Current Medications Medications Dose Ordered Sig/Jackeline Route Start Time Stop Time Status Last Admin Dose Admin Ondansetron HCl 4 mg Q4HP PRN IV 10/15/24 22:00 10/19/24 13:02 4 MG Morphine Sulfate 2 mg Q4HPRN PRN IV 10/15/24 22:00 Nitroglycerin 0.4 mg Q5MINP PRN SL 10/15/24 22:00 Morphine Sulfate 2 mg Q30M PRN IV 10/15/24 22:00 Pantoprazole Sodium 40 mg BID IV 10/16/24 10:00 10/21/24 09:34 40 MG Dextrose 50 ml UD PRN IV 10/15/24 22:00 Hydralazine HCl 10 mg Q6HP PRN IV 10/15/24 22:00 Ceftriaxone Sodium 50 ml @ 100 mls/hr DAILY@09 IV 10/16/24 10:30 10/21/24 09:37 100 MLS/HR Patient Own Medication 10 mg DAILY PO 10/16/24 10:30 UNV Patient Own Medication 1 tab QAM PO 10/17/24 07:00 UNV Amlodipine Besylate 10 mg DAILY PO 10/17/24 10:00 10/21/24 09:37 10 MG Levothyroxine Sodium 25 mcg QAM PO 10/17/24 07:00 10/21/24 06:31 25 MCG Levothyroxine Sodium 50 mcg QAM PO 10/17/24 07:00 10/21/24 06:31 50 MCG Insulin Human Regular ACHS SC 10/16/24 17:00 10/21/24 12:47 2 UNITS Diagnostic Test (Pha) 1 strip ACHS 10/16/24 17:00 10/21/24 11:30 1 STRIP Iron Sucrose 110 ml @ 110 mls/hr DAILY@1200 IV 10/18/24 12:00 10/22/24 12:59 10/21/24 12:51 110 MLS/HR Lorazepam 1 mg ONCE PRN IV 10/18/24 09:45 10/21/24 23:55 Amiodarone HCl 200 mg DAILY PO 10/19/24 10:00 10/21/24 09:37 200 MG Apixaban 5 mg BID PO 10/19/24 22:00 UNV Sodium Chloride 1,000 ml @ 50 mls/hr Q20H IV 10/20/24 13:00 10/21/24 09:00 50 MLS/HR Apixaban 2.5 mg BID PO 10/21/24 22:00 objective General Appearance: alert, no distress HEENT: EOMI, PERRLA, normal external inspect of ears, no icterus, no nasal drainage Neck: no carotid bruit, no jugular venous distention (JVD), no lymphadenopathy Chest: normal thorax Respiratory: clear to auscultation, normal air movement Cardiovascular: regular rate and rhythm, no diastolic murmur, no jugular venous distention (JVD), no rub, no systolic murmur Abdominal: soft, no hepatomegaly, no mass, no splenomegaly, no tenderness Genitourinary: grossly normal external Musculoskeletal: no joint tenderness, no swelling Extremities: normal pulses, no calf tenderness, no clubbing, no cyanosis, no edema Skin: no bruising, no jaundice, no rash Neurological: alert, No focal deficit laboratory and microbiology Laboratory Tests 10/21/24 06:47 10/20/24 06:18 Test 10/21/24 06:47 Range/Units Serum Glucose 78 74-106 mg/dL Problem List 1. GI bleed Monitor, stool for OB, GI consult 2. Acute blood loss anemia Monitor, transfuse 1 unit PRBC 3. DIANN with VMN Monitor, IV fluids 4. Uncontrolled DM II Monitor, insulin ss 5. Acute cystitis with hematuria Monitor, IV abx 6. Dementia Monitor, PPI 7. Metabolic encephalopathy Monitor neurostatus 8. Pleural effusion Monitor 9. Chest pain Monitor, cardiology consult, echocardiogram 10. A-fib RVR Monitor, amio protocol, cardiology consult Assessment/Plan Subjective: Patient appears more awake and alert. Objective: Patient is Latvian speaking. I did update patient's [facility] Amy in regards to paln of care. Patient was admitted for dark stools and found to have a possible GI bleed. Status post-EGD, esophagitis was found with no active bleeding. Neurology consulted. Per family, patient was tested for dementia and diagnosed with Alzheimers dementia by a physician in [place]. However, the previous employment advisor also has dementia and cannot provide the physicians name. Patient had DIANN superimposed on CKD; creatinine is slowly improving. Hemoglobin is stable. Patient is being treated with Rocephin for UTI. Plan: Continue Protonix twice daily for esophagitis. Monitor daily CBC and for active signs of bleeding. Patient seen by cardiology, found to have a moderate pericardial effusion requiring outpatient surveillance and repeat echocardiogram in 3 to 6 weeks. Continue antibiotics for UTI. patient services manager consult to resume home health. DC planning possibly for tomorrow. Dietary Evaluation Review Comments: CCHO-60g renal Specific 50g Protein diet texture as tolerated when medically feasible. Expected Outcomes/Goals: controlled DM, less uremic symptoms, maintain BW. Plan discussed with: Patient, Other BROOKLYN ELIZABETH NP Oct 21, 2024 15:24
--- NOTE | 2024-10-21 17:21 | DVHPN2 ---
Progress Note - Dictate Date Seen: Oct 21, 2024 Has the PT tested + for MRSA If YES, has PT been informed?: Yes Medical Necessity Reason Pt with a Central, PICC or Fol: No Subjective No acute issues overnight vital signs Vital Sign Date Time Temp Pulse Resp B/P (MAP) Pulse Ox O2 Delivery O2 Flow Rate FiO2 10/21/24 17:00 99.3 55 17 148/35 (72) 96 99.3 10/20/24 20:00 Nasal Cannula* 2 28 Total Intake and Output 10/20/24 10/20/24 10/21/24 15:00 23:00 07:00 Intake Total 160 ml 240 ml 240 ml Output Total 200 ml 350 ml Balance 160 ml 40 ml -110 ml medications Current Medications Medications Dose Ordered Sig/Jackeline Route Start Time Stop Time Status Last Admin Dose Admin Ondansetron HCl 4 mg Q4HP PRN IV 10/15/24 22:00 10/19/24 13:02 4 MG Morphine Sulfate 2 mg Q4HPRN PRN IV 10/15/24 22:00 Nitroglycerin 0.4 mg Q5MINP PRN SL 10/15/24 22:00 Morphine Sulfate 2 mg Q30M PRN IV 10/15/24 22:00 Pantoprazole Sodium 40 mg BID IV 10/16/24 10:00 10/21/24 09:34 40 MG Dextrose 50 ml UD PRN IV 10/15/24 22:00 Hydralazine HCl 10 mg Q6HP PRN IV 10/15/24 22:00 Ceftriaxone Sodium 50 ml @ 100 mls/hr DAILY@09 IV 10/16/24 10:30 10/21/24 09:37 100 MLS/HR Patient Own Medication 10 mg DAILY PO 10/16/24 10:30 UNV Patient Own Medication 1 tab QAM PO 10/17/24 07:00 UNV Amlodipine Besylate 10 mg DAILY PO 10/17/24 10:00 10/21/24 09:37 10 MG Levothyroxine Sodium 25 mcg QAM PO 10/17/24 07:00 10/21/24 06:31 25 MCG Levothyroxine Sodium 50 mcg QAM PO 10/17/24 07:00 10/21/24 06:31 50 MCG Insulin Human Regular ACHS SC 10/16/24 17:00 10/21/24 12:47 2 UNITS Diagnostic Test (Pha) 1 strip ACHS 10/16/24 17:00 10/21/24 11:30 1 STRIP Iron Sucrose 110 ml @ 110 mls/hr DAILY@1200 IV 10/18/24 12:00 10/22/24 12:59 10/21/24 12:51 110 MLS/HR Lorazepam 1 mg ONCE PRN IV 10/18/24 09:45 10/21/24 23:55 Amiodarone HCl 200 mg DAILY PO 10/19/24 10:00 10/21/24 09:37 200 MG Apixaban 5 mg BID PO 10/19/24 22:00 UNV Sodium Chloride 1,000 ml @ 50 mls/hr Q20H IV 10/20/24 13:00 10/21/24 09:00 50 MLS/HR Apixaban 2.5 mg BID PO 10/21/24 22:00 objective HEENT: No evidence of JVD, no oral ulcers. Pulmonary: Lungs are clear on auscultation bilaterally Cardiovascular S1-S2, no S3 or S4 Abdomen: Bowel sounds positive, soft no rebound tenderness Skin: No rash Neurological: Awake and alert laboratory and microbiology Laboratory Tests 10/21/24 06:47 10/20/24 06:18 Test 10/21/24 06:47 Range/Units Serum Glucose 78 74-106 mg/dL Problem List 1. Acute kidney injury 2. 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 Anemia concerns for GI bleed 4. Diabetes mellitus with nephropathy 5. Hypertension 6. Dementia 7. Proteinuria of 4 gms Assessment/Plan Plan: GFR with mild improvement continue 1/2 NS at 50 ml/hr . Labs in AM . Dietary Evaluation Review Comments: CCHO-60g renal Specific 50g Protein diet texture as tolerated when medically feasible. Expected Outcomes/Goals: controlled DM, less uremic symptoms, maintain BW. Plan discussed with: BROOKLYN Chou MD Oct 21, 2024 17:21
--- NOTE | 2024-10-21 21:24 | DVHPN2 ---
Progress Note - Dictate Date Seen: Oct 21, 2024 Has the PT tested + for MRSA If YES, has PT been informed?: Yes Medical Necessity Reason Pt with a Central, PICC or Fol: No Subjective Ms. Quinteros is a 84 years old female with a history of hypertension, diabetes, congestive heart failure, atrial fibrillation, hypothyroidism, anemia, the patient was was brought to the hospital on 10/15/2024 with a chief company of dark stool, in the hospital, the patient was considered to have GI bleeding, and Eliquis (2.5 mg b.i.d. according to her granddaughter), a medication for her atrial fibrillation has been hold, EGD on 10/17/24 she was no evidence active bleeding, in his note, GI specialist cleared anticoagulation on 10/20/2024 I have Examined the patient, discussed with her nurse and other medical staff. She was doing fine, awake, but she was only oriented to herself, she was talking about her brother Eliquis has been resumed Urinalysis, 11/02/2024: WBC: 129, WBC: 3 +, WBC/HB/PLT/MCV, 10/20/24: 6.1/9.5/220/80.1, BUN/CR, 10/20/2024: 25/2.5 Liver function tests, 10/20/2024: Unremarkable TG/HDL/LDL/HDL, 10/16/2024: 118/1.8/102/29 Vitamin B12, 10/20/2024: 992 Folic acid, 10/20/2024: 22.5 TSH, 10/2024: 3.32 EKG, 11/02/2024: AFib EGD, 10/20/2024: EGD on 10/17/2024 : Hiatal hernia without esophagitis, Small gastric polyps random biopsies taken. No active bleeding seen in the upper GI tract Echocardiogram required, 11/02/2024: Left ventricle: Mild concentric left ventricular hypertrophy was seen. LVEF was 45-50%. Mild diffuse hypokinesis of left ventricle was seen. Right ventricle was normal sized with normal systolic function. Mild biatrial enlargement was seen. Aortic valve was trileaflet. There was mild aortic insufficiency. There was no aortic stenosis. There was [id number] mitral regurgitation. There was mild tricuspid regurgitation. There was mild pulmonary valve insufficiency. There was moderate pericardial effusion. There was no echocardiographic evidence for tamponade. Right ventricular systolic pressure was assessed at 50 mm Hg. MRI head, 10/19/2024: 1. No acute intracranial process identified. 2. Moderate global cortical atrophy and chronic microvascular ischemic changes. 3. Punctate foci of micro bleed in the the bilateral thalami and left lentiform nucleus likely sequela of chronic hypertension vital signs Vital Sign Date Time Temp Pulse Resp B/P (MAP) Pulse Ox O2 Delivery O2 Flow Rate FiO2 10/21/24 20:56 98.0 55 15 179/59 (99) 98 98.0 10/21/24 08:00 Nasal Cannula* 2 28 Total Intake and Output 10/20/24 10/20/24 10/21/24 15:00 23:00 07:00 Intake Total 160 ml 240 ml 240 ml Output Total 200 ml 350 ml Balance 160 ml 40 ml -110 ml medications Current Medications Medications Dose Ordered Sig/Jackeline Route Start Time Stop Time Status Last Admin Dose Admin Ondansetron HCl 4 mg Q4HP PRN IV 10/15/24 22:00 10/19/24 13:02 4 MG Morphine Sulfate 2 mg Q4HPRN PRN IV 10/15/24 22:00 Nitroglycerin 0.4 mg Q5MINP PRN SL 10/15/24 22:00 Morphine Sulfate 2 mg Q30M PRN IV 10/15/24 22:00 Pantoprazole Sodium 40 mg BID IV 10/16/24 10:00 10/21/24 09:34 40 MG Dextrose 50 ml UD PRN IV 10/15/24 22:00 Hydralazine HCl 10 mg Q6HP PRN IV 10/15/24 22:00 Ceftriaxone Sodium 50 ml @ 100 mls/hr DAILY@09 IV 10/16/24 10:30 10/21/24 09:37 100 MLS/HR Patient Own Medication 10 mg DAILY PO 10/16/24 10:30 UNV Patient Own Medication 1 tab QAM PO 10/17/24 07:00 UNV Amlodipine Besylate 10 mg DAILY PO 10/17/24 10:00 10/21/24 09:37 10 MG Levothyroxine Sodium 25 mcg QAM PO 10/17/24 07:00 10/21/24 06:31 25 MCG Levothyroxine Sodium 50 mcg QAM PO 10/17/24 07:00 10/21/24 06:31 50 MCG Insulin Human Regular ACHS SC 10/16/24 17:00 10/21/24 12:47 2 UNITS Diagnostic Test (Pha) 1 strip ACHS 10/16/24 17:00 10/21/24 17:00 1 STRIP Iron Sucrose 110 ml @ 110 mls/hr DAILY@1200 IV 10/18/24 12:00 10/22/24 12:59 10/21/24 12:51 110 MLS/HR Lorazepam 1 mg ONCE PRN IV 10/18/24 09:45 10/21/24 23:55 Amiodarone HCl 200 mg DAILY PO 10/19/24 10:00 10/21/24 09:37 200 MG Apixaban 5 mg BID PO 10/19/24 22:00 UNV Sodium Chloride 1,000 ml @ 50 mls/hr Q20H IV 10/20/24 13:00 10/21/24 09:00 50 MLS/HR Apixaban 2.5 mg BID PO 10/21/24 22:00 objective General: the patient is well developed and nourished. No acute distress. MENTAL STATUS: Awake and alert. Oriented to herself personal history. The patient is aware of recent events SPEECH, LANGUAGE, HIGHER CORTICAL FUNCTION: no aphasia or dysathria. CRANIAL NERVES: Intact visual prajapati to confrontation. Right eye is cloudy. No light perception in the left eye. Pupils are equal, round and reactive. EOMs full and conjugate Facial sensation intact in all three divisions bilaterally. Mandibular strength intact. SENSATION: Sensation to touch and pinprick is normal. MOTOR: Normal tone in the upper and lower extremity. Normal muscle bulk. No fasciculations. No abnormal movements or posturing. Muscle strength of the major groups in the upper extremities is 5/5. She moves both legs REFLEXES: Deep tendon reflexes normal and symmetrical. No pathological reflexes. CEREBELLAR/COORDINATION: Deferred, but no ataxia in the hands GAIT/STATION: deferred. laboratory and microbiology Laboratory Tests 10/21/24 06:47 10/20/24 06:18 Test 10/21/24 06:47 Range/Units Serum Glucose 78 74-106 mg/dL Problem List Atrial fibrillation, Abnormal MR brain, with diffuse atrophy, questionable NPH, possible punctate foci of micro bleeding in bilateral thalami in the left lentiform nucleus Dementia, she may have moderate degree of dementia, exertion unclear Gait disturbance Incontinence Rule out normal-pressure hydrocephalus Assessment/Plan Monitoring Supportive treatment Telemetry Eliquis 2.5 mg b.i.d. Protonix, 40 mg b.i.d. May consider dementia treatment later Given the degree of dementia, gait disturbance, and incontinence, this no treatment available for her questionable NPH More recommendation per clinical course This medical document was created using an electronic medical record system with [employer] dictation system. Although this document has been carefully reviewed, there may still be some phonetic and typographical errors. These areas are purely typographical due to imperfections of the software programs, and do not reflect any compromise in the patient's medical care. Prognosis poor Dietary Evaluation Review Comments: CCHO-60g renal Specific 50g Protein diet texture as tolerated when medically feasible. Expected Outcomes/Goals: controlled DM, less uremic symptoms, maintain BW. Plan discussed with: Other JONY MONTAGUE MD Oct 21, 2024 21:24
[2024-10-21] MEDS: APIXABAN 2.5 MG TAB PO SCH (23:59)
[2024-10-22] VITALS (8 sets, daily range): BP systolic 116–163; BP diastolic 44–63; PULSE 62–72; RESP 14–18; TEMP 36.9; O2SAT 96–100
[2024-10-22] MEDS: hydrALAZINE HCL 20 MG/ML VL IV PRN (04:53)
[2024-10-22 06:51] LABS: Anion Gap 12 (5-15); Potassium 3.6 mmol/L (3.5-5.1); Sodium 140 mmol/L (136-145)
[2024-10-22 06:54] LABS: Calcium 8.5 mg/dL (8.7-10.4); Carbon Dioxide 19 mmol/L (20-31); Chloride 109 mmol/L (98-107)
[2024-10-22 06:57] LABS: BUN/Creatinine Ratio 10.6 (10.0-20.0); Blood Urea Nitrogen 22 mg/dL (9-23); Glucose 78 mg/dL (74-106)
--- NOTE | 2024-10-22 07:45 | DVHPN2 ---
Progress Note - Dictate Date Seen: Oct 22, 2024 Has the PT tested + for MRSA If YES, has PT been informed?: Yes Medical Necessity Reason Pt with a Central, PICC or Fol: No vital signs Vital Sign Date Time Temp Pulse Resp B/P (MAP) Pulse Ox O2 Delivery O2 Flow Rate FiO2 10/22/24 04:53 160/46 10/22/24 04:36 98.1 67 15 98 98.1 10/21/24 20:00 Nasal Cannula* 2 28 Total Intake and Output 10/21/24 10/21/24 10/22/24 15:00 23:00 07:00 Intake Total 50 ml 463 ml 200 ml Output Total 375 ml 450 ml Balance 50 ml 88 ml -250 ml medications Current Medications Medications Dose Ordered Sig/Jackeline Route Start Time Stop Time Status Last Admin Dose Admin Ondansetron HCl 4 mg Q4HP PRN IV 10/15/24 22:00 10/19/24 13:02 4 MG Morphine Sulfate 2 mg Q4HPRN PRN IV 10/15/24 22:00 Nitroglycerin 0.4 mg Q5MINP PRN SL 10/15/24 22:00 Morphine Sulfate 2 mg Q30M PRN IV 10/15/24 22:00 Pantoprazole Sodium 40 mg BID IV 10/16/24 10:00 10/21/24 09:34 40 MG Dextrose 50 ml UD PRN IV 10/15/24 22:00 Hydralazine HCl 10 mg Q6HP PRN IV 10/15/24 22:00 10/22/24 04:53 10 MG Ceftriaxone Sodium 50 ml @ 100 mls/hr DAILY@09 IV 10/16/24 10:30 10/21/24 09:37 100 MLS/HR Patient Own Medication 10 mg DAILY PO 10/16/24 10:30 UNV Patient Own Medication 1 tab QAM PO 10/17/24 07:00 UNV Amlodipine Besylate 10 mg DAILY PO 10/17/24 10:00 10/21/24 09:37 10 MG Levothyroxine Sodium 25 mcg QAM PO 10/17/24 07:00 10/22/24 06:42 25 MCG Levothyroxine Sodium 50 mcg QAM PO 10/17/24 07:00 10/22/24 06:43 50 MCG Insulin Human Regular ACHS SC 10/16/24 17:00 10/21/24 12:47 2 UNITS Diagnostic Test (Pha) 1 strip ACHS 10/16/24 17:00 10/22/24 06:35 1 STRIP Iron Sucrose 110 ml @ 110 mls/hr DAILY@1200 IV 10/18/24 12:00 10/22/24 12:59 10/21/24 12:51 110 MLS/HR Amiodarone HCl 200 mg DAILY PO 10/19/24 10:00 10/21/24 09:37 200 MG Apixaban 5 mg BID PO 10/19/24 22:00 UNV Sodium Chloride 1,000 ml @ 50 mls/hr Q20H IV 10/20/24 13:00 10/21/24 09:00 50 MLS/HR Apixaban 2.5 mg BID PO 10/21/24 22:00 10/21/24 23:59 2.5 MG laboratory and microbiology Laboratory Tests 10/22/24 05:44 10/20/24 06:18 Test 10/22/24 05:44 Range/Units Serum Glucose 78 74-106 mg/dL Assessment/Plan Patient was a 84-year-old female who presented to the hospital for generalized weakness and dark stool. She was poor historian. She does have advanced dementia. She also speaks Taiwanese. She was found to have anemia and has received blood transfusion in emergency room. On arrival, the patient was found to have atrial fibrillation with RVR and was started on IV amiodarone. Cardiology was involved for cardiac has been of care. Patient herself is not informative to provide previous cardiac history. There was reported atrial fibrillation in the chart as past medical history. No detail previous history is available to review and comment on. Somehow confused female. Lying flat in bed. Not in acute distress. No JVD. Mucosa is wet. Mucosa is pale. Eyes not parallel. Not using accessory muscles of breathing. Lungs are clear to auscultation. Cardiac: Irregular, no thrill. Systolic murmur 3/6 in the apex is heard. Abdomen is soft and distended. Bowel sounds positive. Mild periumbilical tenderness is elicited. There was no rebound tenderness. There was no gross mass. Extremities reveal 2+ edema bilaterally. Right lower extremity is under dressing. Reported past medical history includes hypertension, diabetes mellitus, CKD, anemia, CHF, atrial fibrillation, advanced dementia, hypothyroidism, old history of blood transfusion and chronic respiratory failure on home oxygen. Hemoglobin: 7.3 - 7.3 - 10.1 - 9.4 - 9.4 - 9.4 Creatinine: 1.9 - 1.67 - 1.72 - 1.71 - 1.88 - 2.50 - 2.34 - 2.07 Potassium: 3.7 - 3.1 - 4.2 - 3.8 - 3.7 - 3.4 - 3.6 - 3.6 Sodium: 130 - 138 - 137 - 138 - 139 - 141 - 140 - 140 BNP: 416.33 - 449.91 Troponin (high sensitive): 13 TSH: 3.32 Chest x-ray revealed: IMPRESSION: Small left-sided pleural effusion and/or atelectasis superimposed infection not excluded Abdomen and pelvis CT scan revealed: Patient has cardiomegaly with a significant pericardial effusion adjacent to the left heart. Follow-up cardiac echo is suggested further assessment. Are dense calcifications in the left anterior descending coronary artery, left circumflex and also the aortic valve and right coronary artery as well.1 lung bases are suggestive of pulmonary vascular congestion. Stomach demonstrates lack of rugae suggesting possible chronic gastritis. Kidneys are atrophied kidneys have simple cysts. Pancreas appears TB partially atrophied. The common bile duct is enlarged measuring 12.7 mm in caliber. Patient has a moderately large stool burden. The uterus is atrophied no evidence for gastrointestinal obstruction Patient has osteopenia involving the vertebral bodies with significant anterior wedging of T11 and probably developing compression fracture involving L2. Appendix is normal. There are no diverticuli appreciated. Patient has intramedullary ankit involving the right femur. IMPRESSION: Moderately heavy stool burden. Patient appears to have effaced rugae in the stomach which may indicate chronic gastritis May relate to patient's symptoms. Common bile duct is dilated. Patient has atrophied kidneys and maybe developing multiple compression fractures involving the thoracolumbar spine MRI of brain revealed: IMPRESSION: 1. No acute intracranial process identified. 2. Moderate global cortical atrophy and chronic microvascular ischemic changes. 3. Punctate foci of micro bleed in the the bilateral thalami and left lentiform nucleus likely sequela of chronic hypertension. EKG revealed atrial fibrillation with RVR Telemetry reveals atrial fibrillation with moderate ventricular response. Converted to junctional, had episodes of pause and went to sinus bradycardia. Echocardiogram reported: Left ventricle: Mild concentric left ventricular hypertrophy was seen. LVEF was 45-50%. Mild diffuse hypokinesis of left ventricle was seen. Right ventricle was normal sized with normal systolic function. Mild biatrial enlargement was seen. Aortic valve was trileaflet. There was mild aortic insufficiency. There was no aortic stenosis. There was [id number] mitral regurgitation. There was mild tricuspid regurgitation. There was mild pulmonary valve insufficiency. There was moderate pericardial effusion. There was no echocardiographic evidence for tamponade. Right ventricular systolic pressure was assessed at 50 mm Hg. Patient was a 84-year-old female who is poor historian. Reported past medical history includes atrial fibrillation, heart failure, advanced dementia, hypertension and diabetes mellitus. Patient was presented with anemia and tarry stool. Has received blood transfusion for GI bleeding. On presentation, the patient had atrial fibrillation with RVR. Patient reportedly has history of atrial fibrillation. Converted to junctional rhythm, had episodes of pause and went to sinus bradycardia. Atrial fibrillation with RVR Significant anemia GI bleeding Dementia, advanced CHF, history of, diastolic Hypertension Hyperlipidemia CKD DIANN and CKD Hypothyroidism Obesity Pericardial effusion, moderate in size Pulmonary hypertension, possibly type 2 s/p EGD by GI Gastric polyps mild gastritis Hiatal hernia, small Cardiac suggestion for management: Manage on telemetry Follow up electrolytes and kidney function tests and correct abnormalities. Keep potassium above four and magnesium above two Amiodarone: 200 mg daily To avoid beta-rashmi for now. Recognizing comorbidities, the patient's CHADS-VASc score is high and long-term full anticoagulation as advised. Restarted on full anticoagulation (GI and Neurology gave permission). Evaluation and management of DIANN/CKD as per primary team/nephrology Further evaluation and management depends on the above and clinical course A total of 55 minutes was spent reviewing the patient record, examining the patient, making a diagnostic and therapeutic plan, discussing this plan with medical personnel, following up on diagnostic studies and following the patient for clinical stability excluding any and all procedures. At least 50% of this time was spent in direct, [id number] contact. Thank you for allowing me to participate in this patient's care. Further recommendations will depend on patient's clinical course. Please do not hesitate to contact me if you have any questions or concerns. This medical document was created using electronic medical record system with [employer] dictation system. Although this document has been carefully reviewed, there may still be some phonetic and typographical errors. These areas are purely typographical due to the imperfection of the software programs, and do not reflect any compromise in the patient's medical care. Dietary Evaluation Review Comments: CCHO-60g renal Specific 50g Protein diet texture as tolerated when medically feasible. Expected Outcomes/Goals: controlled DM, less uremic symptoms, maintain BW. Plan discussed with: Other (nurse) CALVIN GARCIA MD Oct 22, 2024 07:45
[2024-10-22] MEDS ORDERED: AMIO200T13 PO (09:50)
[2024-10-22] MEDS ORDERED: PANT40TA2 PO (09:50)
[2024-10-22] MEDS ORDERED: APIX2.5T PO (09:50)
--- NOTE | 2024-10-22 13:28 | DVHPN2 ---
Progress Note Date Seen: Oct 22, 2024 Resident Creating Document: YANY FU RESIDENT Has the PT tested + for MRSA If YES, has PT been informed?: Yes Medical Necessity Reason Pt with a Central, PICC or Fol: No Subjective Review of Systems Patient has no further bleeding no nausea no vomiting but some mild abdominal discomfort Tolerating food Hemoglobin stable, Objective vital signs Vital Sign Date Time Temp Pulse Resp B/P (MAP) Pulse Ox O2 Delivery O2 Flow Rate FiO2 10/22/24 10:11 163/50 10/22/24 09:00 98.4 70 17 100 98.4 10/21/24 20:00 Nasal Cannula* 2 28 Total Intake and Output 10/21/24 10/21/24 10/22/24 15:00 23:00 07:00 Intake Total 50 ml 463 ml 200 ml Output Total 375 ml 450 ml Balance 50 ml 88 ml -250 ml medications Current Medications Medications Dose Ordered Sig/Jackeline Route Start Time Stop Time Status Last Admin Dose Admin Ondansetron HCl 4 mg Q4HP PRN IV 10/15/24 22:00 10/19/24 13:02 4 MG Morphine Sulfate 2 mg Q4HPRN PRN IV 10/15/24 22:00 Nitroglycerin 0.4 mg Q5MINP PRN SL 10/15/24 22:00 Morphine Sulfate 2 mg Q30M PRN IV 10/15/24 22:00 Pantoprazole Sodium 40 mg BID IV 10/16/24 10:00 10/22/24 10:11 40 MG Dextrose 50 ml UD PRN IV 10/15/24 22:00 Hydralazine HCl 10 mg Q6HP PRN IV 10/15/24 22:00 10/22/24 04:53 10 MG Ceftriaxone Sodium 50 ml @ 100 mls/hr DAILY@09 IV 10/16/24 10:30 10/22/24 10:10 100 MLS/HR Patient Own Medication 10 mg DAILY PO 10/16/24 10:30 UNV Patient Own Medication 1 tab QAM PO 10/17/24 07:00 UNV Amlodipine Besylate 10 mg DAILY PO 10/17/24 10:00 10/22/24 10:11 10 MG Levothyroxine Sodium 25 mcg QAM PO 10/17/24 07:00 10/22/24 06:42 25 MCG Levothyroxine Sodium 50 mcg QAM PO 10/17/24 07:00 10/22/24 06:43 50 MCG Insulin Human Regular ACHS SC 10/16/24 17:00 10/22/24 12:34 2 UNITS Diagnostic Test (Pha) 1 strip ACHS 10/16/24 17:00 10/22/24 12:31 1 STRIP Amiodarone HCl 200 mg DAILY PO 10/19/24 10:00 10/22/24 10:10 200 MG Apixaban 5 mg BID PO 10/19/24 22:00 UNV Sodium Chloride 1,000 ml @ 50 mls/hr Q20H IV 10/20/24 13:00 10/21/24 09:00 50 MLS/HR Apixaban 2.5 mg BID PO 10/21/24 22:00 10/22/24 10:11 2.5 MG Examination HEENT: No evidence of JVD, no oral ulcers. Pulmonary: Lungs are clear on auscultation bilaterally Cardiovascular S1-S2, no S3 or S4 Abdomen: Bowel sounds positive, soft no rebound tenderness Skin: No rash Neurological: Awake and alert. laboratory and microbiology Laboratory Tests 10/22/24 05:44 10/20/24 06:18 Test 10/22/24 05:44 Range/Units Serum Glucose 78 74-106 mg/dL Microbiology Date/Time Source Procedure Growth Status 10/18/24 07:20 Urine - [place] Urine Culture - Final Escherichia coli Presumptive Denita tropicalis Complete Problem List/Assessment/Plan Problem List/Assessment/Plan #Gastric polyps #Significant anemia #GI bleeding #mild gastritis #Hiatal hernia, small #Significant anemia #GI bleeding # Dementia, advanced # Atrial fibrillation with RVR # CHF, history of, diastolic # Hypertension # Hyperlipidemia # CKD # DIANN and CKD # Hypothyroidism #Obesity - s/p EGD on 10/17/2024 : Hiatal hernia without esophagitis, Small gastric polyps random biopsies taken. No active bleeding seen in the upper GI tract - Close follow-up of the hemoglobin - family is requesting conservative management, defer colonoscopy - continue Protonix - CEA normal - B12, folic acid level WNL - start the anticoagulation , closely monitor for GI bleed. Thank you so much for the opportunity to consult on your patient. GI team will follow the patient. In case of any questions or concerns please feel free to reach out. Case discussed with Dr. Giuseppe Santiago. The patient and caregiver team agreed to the plan. Plan discussed with: Patient Dietary Evaluation Review Comments: CCHO-60g renal Specific 50g Protein diet texture as tolerated when medically feasible. Expected Outcomes/Goals: controlled DM, less uremic symptoms, maintain BW. YANY FU RESIDENT Oct 22, 2024 13:28
--- NOTE | 2024-10-22 15:57 | DVHPN2 ---
Progress Note - Dictate Date Seen: Oct 22, 2024 Has the PT tested + for MRSA If YES, has PT been informed?: Yes Medical Necessity Reason Pt with a Central, PICC or Fol: No Subjective No acute issues overnight Sitter at bedside. Oral intake has been poor because of lack of dentures. vital signs Vital Sign Date Time Temp Pulse Resp B/P (MAP) Pulse Ox O2 Delivery O2 Flow Rate FiO2 10/22/24 15:35 36.9 70 16 98 10/22/24 10:11 163/50 10/21/24 20:00 Nasal Cannula* 2 28 Total Intake and Output 10/21/24 10/21/24 10/22/24 15:00 23:00 07:00 Intake Total 50 ml 463 ml 200 ml Output Total 375 ml 450 ml Balance 50 ml 88 ml -250 ml medications Current Medications Medications Dose Ordered Sig/Jackeline Route Start Time Stop Time Status Last Admin Dose Admin Ondansetron HCl 4 mg Q4HP PRN IV 10/15/24 22:00 10/19/24 13:02 4 MG Morphine Sulfate 2 mg Q4HPRN PRN IV 10/15/24 22:00 Nitroglycerin 0.4 mg Q5MINP PRN SL 10/15/24 22:00 Morphine Sulfate 2 mg Q30M PRN IV 10/15/24 22:00 Pantoprazole Sodium 40 mg BID IV 10/16/24 10:00 10/22/24 10:11 40 MG Dextrose 50 ml UD PRN IV 10/15/24 22:00 Hydralazine HCl 10 mg Q6HP PRN IV 10/15/24 22:00 10/22/24 04:53 10 MG Ceftriaxone Sodium 50 ml @ 100 mls/hr DAILY@09 IV 10/16/24 10:30 10/22/24 10:10 100 MLS/HR Patient Own Medication 10 mg DAILY PO 10/16/24 10:30 UNV Patient Own Medication 1 tab QAM PO 10/17/24 07:00 UNV Amlodipine Besylate 10 mg DAILY PO 10/17/24 10:00 10/22/24 10:11 10 MG Levothyroxine Sodium 25 mcg QAM PO 10/17/24 07:00 10/22/24 06:42 25 MCG Levothyroxine Sodium 50 mcg QAM PO 10/17/24 07:00 10/22/24 06:43 50 MCG Insulin Human Regular ACHS SC 10/16/24 17:00 10/22/24 12:34 2 UNITS Diagnostic Test (Pha) 1 strip ACHS 10/16/24 17:00 10/22/24 12:31 1 STRIP Amiodarone HCl 200 mg DAILY PO 10/19/24 10:00 10/22/24 10:10 200 MG Apixaban 5 mg BID PO 10/19/24 22:00 UNV Sodium Chloride 1,000 ml @ 50 mls/hr Q20H IV 10/20/24 13:00 10/21/24 09:00 50 MLS/HR Apixaban 2.5 mg BID PO 10/21/24 22:00 10/22/24 10:11 2.5 MG objective HEENT: No evidence of JVD, no oral ulcers. Pulmonary: Lungs are clear on auscultation bilaterally Cardiovascular S1-S2, no S3 or S4 Abdomen: Bowel sounds positive, soft no rebound tenderness Skin: No rash Neurological: Awake and alert laboratory and microbiology Laboratory Tests 10/22/24 05:44 10/20/24 06:18 Test 10/22/24 05:44 Range/Units Serum Glucose 78 74-106 mg/dL Problem List 1. Acute kidney injury 2. 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 Anemia concerns for GI bleed 4. Diabetes mellitus with nephropathy 5. Hypertension 6. Dementia 7. Proteinuria of 4 gms Assessment/Plan GFR continues to improve. Continue with hydration. Consider pureed Diet if oral intake is poor because of lack of dentures. Cleared from renal standpoint for discharge. Dietary Evaluation Review Comments: CCHO-60g renal Specific 50g Protein diet texture as tolerated when medically feasible. Expected Outcomes/Goals: controlled DM, less uremic symptoms, maintain BW. Plan discussed with: BROOKLYN Chou MD Oct 22, 2024 15:57
--- NOTE | 2024-10-22 21:33 | DVHPN2 ---
Progress Note - Dictate Date Seen: Oct 22, 2024 Has the PT tested + for MRSA If YES, has PT been informed?: Yes Medical Necessity Reason Pt with a Central, PICC or Fol: No Subjective Ms. Quinteros is a 84 years old female with a history of hypertension, diabetes, congestive heart failure, atrial fibrillation, hypothyroidism, anemia, the patient was was brought to the hospital on 10/15/2024 with a chief company of dark stool, in the hospital, the patient was considered to have GI bleeding, and Eliquis (2.5 mg b.i.d. according to her granddaughter), a medication for her atrial fibrillation has been hold, EGD on 10/17/24 she was no evidence active bleeding, in his note, GI specialist cleared anticoagulation on 10/20/2024 I have Examined the patient, discussed with her nurse, sitter and other medical staff. She was doing fine, awake, but she was only oriented to herself, she keeps talking to herself Urinalysis, 11/02/2024: WBC: 129, WBC: 3 +, WBC/HB/PLT/MCV, 10/20/24: 6.1/9.5/220/80.1, BUN/CR, 10/20/2024: 25/2.5 Liver function tests, 10/20/2024: Unremarkable TG/HDL/LDL/HDL, 10/16/2024: 118/1.8/102/29 Vitamin B12, 10/20/2024: 992 Folic acid, 10/20/2024: 22.5 TSH, 10/2024: 3.32 EKG, 11/02/2024: AFib EGD, 10/20/2024: EGD on 10/17/2024 : Hiatal hernia without esophagitis, Small gastric polyps random biopsies taken. No active bleeding seen in the upper GI tract Echocardiogram required, 11/02/2024: Left ventricle: Mild concentric left ventricular hypertrophy was seen. LVEF was 45-50%. Mild diffuse hypokinesis of left ventricle was seen. Right ventricle was normal sized with normal systolic function. Mild biatrial enlargement was seen. Aortic valve was trileaflet. There was mild aortic insufficiency. There was no aortic stenosis. There was [id number] mitral regurgitation. There was mild tricuspid regurgitation. There was mild pulmonary valve insufficiency. There was moderate pericardial effusion. There was no echocardiographic evidence for tamponade. Right ventricular systolic pressure was assessed at 50 mm Hg. MRI head, 10/19/2024: 1. No acute intracranial process identified. 2. Moderate global cortical atrophy and chronic microvascular ischemic changes. 3. Punctate foci of micro bleed in the the bilateral thalami and left lentiform nucleus likely sequela of chronic hypertension vital signs Vital Sign Date Time Temp Pulse Resp B/P (MAP) Pulse Ox O2 Delivery O2 Flow Rate FiO2 10/22/24 21:00 98.5 72 18 160/63 (95) 96 98.5 10/22/24 08:00 Nasal Cannula* 2 28 Total Intake and Output 10/21/24 10/21/24 10/22/24 15:00 23:00 07:00 Intake Total 50 ml 463 ml 200 ml Output Total 375 ml 450 ml Balance 50 ml 88 ml -250 ml medications Current Medications Medications Dose Ordered Sig/Jackeline Route Start Time Stop Time Status Last Admin Dose Admin Ondansetron HCl 4 mg Q4HP PRN IV 10/15/24 22:00 10/19/24 13:02 4 MG Morphine Sulfate 2 mg Q4HPRN PRN IV 10/15/24 22:00 Nitroglycerin 0.4 mg Q5MINP PRN SL 10/15/24 22:00 Morphine Sulfate 2 mg Q30M PRN IV 10/15/24 22:00 Pantoprazole Sodium 40 mg BID IV 10/16/24 10:00 10/22/24 10:11 40 MG Dextrose 50 ml UD PRN IV 10/15/24 22:00 Hydralazine HCl 10 mg Q6HP PRN IV 10/15/24 22:00 10/22/24 04:53 10 MG Ceftriaxone Sodium 50 ml @ 100 mls/hr DAILY@09 IV 10/16/24 10:30 10/22/24 10:10 100 MLS/HR Patient Own Medication 10 mg DAILY PO 10/16/24 10:30 UNV Patient Own Medication 1 tab QAM PO 10/17/24 07:00 UNV Amlodipine Besylate 10 mg DAILY PO 10/17/24 10:00 10/22/24 10:11 10 MG Levothyroxine Sodium 25 mcg QAM PO 10/17/24 07:00 10/22/24 06:42 25 MCG Levothyroxine Sodium 50 mcg QAM PO 10/17/24 07:00 10/22/24 06:43 50 MCG Insulin Human Regular ACHS SC 10/16/24 17:00 10/22/24 12:34 2 UNITS Diagnostic Test (Pha) 1 strip ACHS 10/16/24 17:00 10/22/24 21:21 1 STRIP Amiodarone HCl 200 mg DAILY PO 10/19/24 10:00 10/22/24 10:10 200 MG Apixaban 5 mg BID PO 10/19/24 22:00 UNV Sodium Chloride 1,000 ml @ 50 mls/hr Q20H IV 10/20/24 13:00 10/21/24 09:00 50 MLS/HR Apixaban 2.5 mg BID PO 10/21/24 22:00 10/22/24 10:11 2.5 MG objective General: the patient is well developed and nourished. No acute distress. MENTAL STATUS: Awake and alert. Oriented to herself personal history. The patient is aware of recent events SPEECH, LANGUAGE, HIGHER CORTICAL FUNCTION: no aphasia or dysathria. CRANIAL NERVES: Intact visual prajapati to confrontation. Right eye is cloudy. No light perception in the left eye. Pupils are equal, round and reactive. EOMs full and conjugate Facial sensation intact in all three divisions bilaterally. Mandibular strength intact. SENSATION: Sensation to touch and pinprick is normal. MOTOR: Normal tone in the upper and lower extremity. Normal muscle bulk. No fasciculations. No abnormal movements or posturing. Muscle strength of the major groups in the upper extremities is 5/5. She moves both legs REFLEXES: Deep tendon reflexes normal and symmetrical. No pathological reflexes. CEREBELLAR/COORDINATION: Deferred, but no ataxia in the hands GAIT/STATION: deferred. laboratory and microbiology Laboratory Tests 10/22/24 05:44 10/20/24 06:18 Test 10/22/24 05:44 Range/Units Serum Glucose 78 74-106 mg/dL Problem List Atrial fibrillation, Abnormal MR brain, with diffuse atrophy, questionable NPH, possible punctate foci of micro bleeding in bilateral thalami in the left lentiform nucleus Dementia, she may have moderate degree of dementia, exertion unclear Gait disturbance Incontinence Rule out normal-pressure hydrocephalus Assessment/Plan Monitoring Supportive treatment Telemetry Eliquis 2.5 mg b.i.d. Protonix, 40 mg b.i.d. May consider dementia treatment later Given the degree of dementia, gait disturbance, and incontinence, this no treatment available for her questionable NPH More recommendation per clinical course This medical document was created using an electronic medical record system with [employer] dictation system. Although this document has been carefully reviewed, there may still be some phonetic and typographical errors. These areas are purely typographical due to imperfections of the software programs, and do not reflect any compromise in the patient's medical care. Prognosis poor Dietary Evaluation Review Comments: CCHO-60g renal Specific 50g Protein diet texture as tolerated when medically feasible. Expected Outcomes/Goals: controlled DM, less uremic symptoms, maintain BW. Plan discussed with: Other JONY MONTAGUE MD Oct 22, 2024 21:33
--- NOTE | 2024-10-22 22:02 | DVHDS2 ---
Discharge Summary Date of Admission Oct 15, 2024 at 21:53 Date of Discharge: Oct 22, 2024 Labs/Diagnostic Data: Laboratory Results Test 10/22/24 21:25 10/22/24 05:44 10/21/24 16:28 10/20/24 12:45 POC Glucose 99 mg/dl (70-106) Sodium Level 140 mmol/L (136-145) Potassium Level 3.6 mmol/L (3.5-5.1) Chloride Level 109 mmol/L (98-107) Carbon Dioxide Level 19 mmol/L (20-31) Anion Gap 12 (5-15) Blood Urea Nitrogen 22 mg/dL (9-23) Creatinine 2.07 mg/dL (0.550-1.02) Glomerular Filtration Rate Calc 23 mL/min (>90) BUN/Creatinine Ratio 10.6 (10.0-20.0) Serum Glucose 78 mg/dL (74-106) Calcium Level 8.5 mg/dL (8.7-10.4) Hemoglobin A1c 8.3 % A1C (<5.7) Carcinoembryonic Antigen 3.35 ng/mL (<=5.0) Vitamin B12 Level 992 pg/mL (211-911) Folic Acid 22.52 ng/mL (>5.38) Test 10/20/24 06:18 10/16/24 08:26 10/16/24 06:23 10/15/24 20:07 White Blood Count 6.1 10^3/uL (4.4-10.8) Red Blood Count 3.58 10^6/uL (4.0-5.20) Hemoglobin 9.4 g/dL (12.2-16.2) Hematocrit 28.7 % (36.0-46.0) Mean Corpuscular Volume 80.1 fL (80.0-100.0) Mean Corpuscular Hemoglobin 26.2 pg (28.0-32.0) Mean Corpuscular Hemoglobin Concent 32.7 g/dL (32.0-36.0) Red Cell Distribution Width 15.9 % (11.8-14.3) Platelet Count 220 10^3/uL (140-450) Mean Platelet Volume 8.9 fL (6.9-10.8) Neutrophils (%) (Auto) 73.4 % (37.0-80.0) Lymphocytes (%) (Auto) 17.9 % (10.0-50.0) Monocytes (%) (Auto) 6.1 % (0.0-12.0) Eosinophils (%) (Auto) 1.8 % (0.0-7.0) Basophils (%) (Auto) 0.8 % (0.0-2.0) Neutrophils # (Auto) 4.5 10 ^3/uL (1.6-8.6) Lymphocytes # (Auto) 1.1 10 ^3/uL (0.4-5.4) Monocytes # (Auto) 0.4 10 ^3/uL (0-1.3) Eosinophils # (Auto) 0.1 10 ^3/uL (0-0.8) Basophils # (Auto) 0 10 ^3/uL (0-0.2) Nucleated Red Blood Cells 0.1 % Total Bilirubin 0.2 mg/dL (0.2-1.0) Aspartate Amino Transferase (AST) 11 U/L (13-40) Alanine Aminotransferase (ALT) < 9 U/L (7-40) Alkaline Phosphatase 89 U/L (46-116) Total Protein 6.4 g/dL (5.7-8.2) Albumin 3.4 g/dL (3.2-4.8) Urine Color Colorless (Yellow) Urine Clarity Turbid (Clear) Urine pH 5.5 (5.0-9.0) Urine Specific [place] 1.010 (1.001-1.035) Urine Protein 2+ (Negative) Urine Ketones Negative (Negative) Urine Blood Trace /uL (Negative) Urine Nitrite Negative (Negative) Urine Bilirubin Negative (Negative) Urine Urobilinogen Normal mg/dL (Negative) Urine Leukocyte Esterase 3+ /uL (Negative) Urine RBC 3 /hpf (0 - 4) Urine WBC Clumps Present /hpf (None Seen) Urine Microscopic WBC 129 /HPF (0-5) Urine Squamous Epithelial Cells Few /hpf (<5) Urine Bacteria Many /hpf (None Seen) Urine Mucus Few (None Seen) Urine Creatinine 42.34 mg/dL (30.0-125.0) Urine Protein/Creatinine Ratio 4.71 Urine Glucose 1+ mg/dL (Normal) Urine Total Protein 199.4 mg/dL (1-14) Iron Level 26 ug/dL (50-170) Total Iron Binding Capacity 289 ug/dL (250-425) Percent Iron Saturation 9.0 % (15-50) B-Type Natriuretic Peptide 449.91 pg/mL (0-100) Triglycerides Level 118 mg/dL (< 150) Cholesterol Level 148 mg/dL (< 200) LDL Cholesterol 102 mg/dL (< 100) HDL Cholesterol 29 mg/dL (40-59) Thyroid Stimulating Hormone (TSH) 3.32 uIU/mL (0.55-4.78) Lactic Acid Level 0.9 mmol/L (0.4-2.0) Magnesium Level 2.0 mg/dL (1.6-2.6) Troponin I High Sensitivity 13 ng/L (</=34) Beta-Hydroxybutyric Acid 0.158 mmol/L (< 0.4) Test 10/15/24 19:41 Blood Gas Specimen Type Arterial Blood Gas Sample Site Left radial Blood Gas Patient Temperature 37.0 Arterial Blood Date Drawn [id number] Arterial Blood pH 7.405 (7.350-7.450) Arterial Blood Partial Pressure CO2 36.5 mmHg (32.0-45.0) Arterial Blood Partial Pressure O2 86.0 mmHg (83.0-108.0) Arterial Blood HCO3 22.4 mmol/L (21.0-28.0) Arterial Blood Oxygen Saturation 96.0 % (94.0-98.0) Arterial Blood Base Excess -2.1 mmol/L (-2.0-3.0) Arterial Blood Oxyhemoglobin 95.7 % (94.0-98.0) Arterial Blood Carboxyhemoglobin 0.1 % (0.5-1.5) Arterial Blood Methemoglobin 0.2 % (0.0-1.5) James Test Modified Blood Gas Total Hemoglobin 8.40 g/dL (12.0-16.0) Blood Gas Modality Nasal cannula FiO2 % 28.0 Other Laboratory Tests 10/22/24 05:44 10/20/24 06:18 Brief Hx & Hospital Course: 84 yo female patient with hx of CHF, DM, HTN, A-fib, anemia, and dementia c/o dark stools x 1 day. EMS found patient's BS to be reading "high". Patient's last blood transfusion was 2 months ago. Patient was admitted on October 15, 2024, for melena. Patient was admitted for possible GI bleed. Patient was seen by GI. Patient is status post upper endoscopy. Patient was found to have gastritis. Patient also developed A-fib with RVR. Patient was seen by cardiology. Patient was started on amiodarone. Hemoglobin remained stable. No active signs or symptoms of bleeding were found. Patient was started on Protonix. Due to A-fib with RVR, patient was started on Eliquis 2.5 mg p.o. twice daily. Patient was treated with IV antibiotics for acute cystitis. Patient has underlying Alzheimer's dementia, which was diagnosed years ago with a prior physician in [place]. Patient had mild DIANN, which has since resolved. Patient's renal function is at baseline. Patient was discharged home. Home health was resumed. Patient's daughter and granddaughter, Amy, were updated, and patient was instructed to follow up with her PCP, Dr. Lind in 1 week. There were no complaints or new complaints upon discharge, all questions and concerns were answered. Patient was advised to return to the ER or call 911 if any headaches, dizziness, shortness of breath, chest pain, bleeding, fevers, or worsening of medical condition. Patient/Family was counseled about treatment plan, medications, possible side effects, patientverbalized understanding. All questions were answered to the best of my ability. The patient symptoms improved and they are okay to be DC. Condition at Discharge: Stable Final Diagnosis/Problems List S/P EGD- POLYPS REOVED, GASTRITIS UTI GI bleed Acute blood loss anemia - no active bleeding DIANN with VMN Uncontrolled DM II Acute cystitis with hematuria Dementia Metabolic encephalopathy Pleural effusion Chest pain A-fib RVR Discharge Disposition: Home with Health Services Discharge Instruct/Medications Diet: Consistent carbohydrate, Cardiac 2g Na,low cholest Activity: No Restrictions, As Tolerated Follow Up/Referral: PCP 1 WEEK Discharge Statement: "Patient was advised to return to the ER or call 911 if any headaches, dizziness, shortness of breath, chest pain, abdominal pain, bleeding, fevers, or worsening of medical condition. Patient was counseled about treatment plan, medications, possible side effects, patientverbalized understanding. All questions were answered to the best of my ability. This discharge took greater then 30 minutes in planning, reviewing documentation, counseling the patient, and discussing with other team members." ASSESSMENT ASSESSMENT Assessment ACUTE BLODD LOSS ANEMIA- NO ACTIVE BLEED S/P EGD- POLYPS REOVED, GASTRITIS A FIB RVR UTI DIANN WITH VMN DEMENTIA BROOKLYN ELIZABETH NP Oct 22, 2024 22:02
[2024-10-23 01:00] VITALS: BP 164/66; PULSE 75; RESP 18; TEMP 98.5; O2SAT 97
[2024-10-23 05:00] VITALS: BP 173/75; PULSE 76; RESP 18; TEMP 98.4; O2SAT 98
[2024-10-23] MEDS: MORPHINE SULFATE INJ 2 MG/ml SYRG IV PRN (05:00)
[2024-10-23 08:00] VITALS: PULSE 71; PULSE 74; RESP 18; O2SAT 97
[2024-10-23 09:00] VITALS: BP 118/96; PULSE 74; RESP 18; TEMP 98; O2SAT 97
[2024-10-23] MEDS: ONDANSETRON ODT 4 MG TAB PO ONE (10:18)
[2024-10-23] MEDS: HYDROcodone-ACET 10/325MG TAB PO ONE (10:18)
--- NOTE | 2024-10-23 10:58 | DVHPN2 ---
Progress Note - Dictate Date Seen: Oct 23, 2024 Has the PT tested + for MRSA If YES, has PT been informed?: Yes Medical Necessity Reason Pt with a Central, PICC or Fol: No vital signs Vital Sign Date Time Temp Pulse Resp B/P (MAP) Pulse Ox O2 Delivery O2 Flow Rate FiO2 10/23/24 09:09 118/96 10/23/24 09:00 98.0 74 18 97 98.0 10/22/24 20:00 Nasal Cannula* 2 28 Total Intake and Output 10/22/24 10/22/24 10/23/24 15:00 23:00 07:00 Intake Total 250 ml 350 ml Output Total 450 ml 300 ml Balance -200 ml 50 ml medications Current Medications Medications Dose Ordered Sig/Jackeline Route Start Time Stop Time Status Last Admin Dose Admin Ondansetron HCl 4 mg Q4HP PRN IV 10/15/24 22:00 10/19/24 13:02 4 MG Morphine Sulfate 2 mg Q4HPRN PRN IV 10/15/24 22:00 10/23/24 05:00 2 MG Nitroglycerin 0.4 mg Q5MINP PRN SL 10/15/24 22:00 Morphine Sulfate 2 mg Q30M PRN IV 10/15/24 22:00 Pantoprazole Sodium 40 mg BID IV 10/16/24 10:00 10/22/24 21:43 40 MG Dextrose 50 ml UD PRN IV 10/15/24 22:00 Hydralazine HCl 10 mg Q6HP PRN IV 10/15/24 22:00 10/23/24 04:59 10 MG Ceftriaxone Sodium 50 ml @ 100 mls/hr DAILY@09 IV 10/16/24 10:30 10/22/24 10:10 100 MLS/HR Patient Own Medication 10 mg DAILY PO 10/16/24 10:30 UNV Patient Own Medication 1 tab QAM PO 10/17/24 07:00 UNV Amlodipine Besylate 10 mg DAILY PO 10/17/24 10:00 10/23/24 09:09 10 MG Levothyroxine Sodium 25 mcg QAM PO 10/17/24 07:00 10/23/24 05:00 25 MCG Levothyroxine Sodium 50 mcg QAM PO 10/17/24 07:00 10/23/24 05:02 50 MCG Insulin Human Regular ACHS SC 10/16/24 17:00 10/22/24 12:34 2 UNITS Diagnostic Test (Pha) 1 strip ACHS 10/16/24 17:00 10/23/24 06:17 1 STRIP Amiodarone HCl 200 mg DAILY PO 10/19/24 10:00 10/23/24 09:09 200 MG Apixaban 5 mg BID PO 10/19/24 22:00 UNV Sodium Chloride 1,000 ml @ 50 mls/hr Q20H IV 10/20/24 13:00 10/21/24 09:00 50 MLS/HR Apixaban 2.5 mg BID PO 10/21/24 22:00 10/23/24 09:08 2.5 MG laboratory and microbiology Laboratory Tests 10/22/24 05:44 10/20/24 06:18 Test 10/22/24 05:44 Range/Units Serum Glucose 78 74-106 mg/dL Assessment/Plan Patient was a 84-year-old female who presented to the hospital for generalized weakness and dark stool. She was poor historian. She does have advanced dementia. She also speaks Nepali. She was found to have anemia and has received blood transfusion in emergency room. On arrival, the patient was found to have atrial fibrillation with RVR and was started on IV amiodarone. Cardiology was involved for cardiac has been of care. Patient herself is not informative to provide previous cardiac history. There was reported atrial fibrillation in the chart as past medical history. No detail previous history is available to review and comment on. Somehow confused female. Lying flat in bed. Not in acute distress. No JVD. Mucosa is wet. Mucosa is pale. Eyes not parallel. Not using accessory muscles of breathing. Lungs are clear to auscultation. Cardiac: Irregular, no thrill. Systolic murmur 3/6 in the apex is heard. Abdomen is soft and distended. Bowel sounds positive. Mild periumbilical tenderness is elicited. There was no rebound tenderness. There was no gross mass. Extremities reveal 2+ edema bilaterally. Right lower extremity is under dressing. Reported past medical history includes hypertension, diabetes mellitus, CKD, anemia, CHF, atrial fibrillation, advanced dementia, hypothyroidism, old history of blood transfusion and chronic respiratory failure on home oxygen. Hemoglobin: 7.3 - 7.3 - 10.1 - 9.4 - 9.4 - 9.4 Creatinine: 1.9 - 1.67 - 1.72 - 1.71 - 1.88 - 2.50 - 2.34 - 2.07 Potassium: 3.7 - 3.1 - 4.2 - 3.8 - 3.7 - 3.4 - 3.6 - 3.6 Sodium: 130 - 138 - 137 - 138 - 139 - 141 - 140 - 140 BNP: 416.33 - 449.91 Troponin (high sensitive): 13 TSH: 3.32 Chest x-ray revealed: IMPRESSION: Small left-sided pleural effusion and/or atelectasis superimposed infection not excluded Abdomen and pelvis CT scan revealed: Patient has cardiomegaly with a significant pericardial effusion adjacent to the left heart. Follow-up cardiac echo is suggested further assessment. Are dense calcifications in the left anterior descending coronary artery, left circumflex and also the aortic valve and right coronary artery as well.1 lung bases are suggestive of pulmonary vascular congestion. Stomach demonstrates lack of rugae suggesting possible chronic gastritis. Kidneys are atrophied kidneys have simple cysts. Pancreas appears TB partially atrophied. The common bile duct is enlarged measuring 12.7 mm in caliber. Patient has a moderately large stool burden. The uterus is atrophied no evidence for gastrointestinal obstruction Patient has osteopenia involving the vertebral bodies with significant anterior wedging of T11 and probably developing compression fracture involving L2. Appendix is normal. There are no diverticuli appreciated. Patient has intramedullary ankit involving the right femur. IMPRESSION: Moderately heavy stool burden. Patient appears to have effaced rugae in the stomach which may indicate chronic gastritis May relate to patient's symptoms. Common bile duct is dilated. Patient has atrophied kidneys and maybe developing multiple compression fractures involving the thoracolumbar spine MRI of brain revealed: IMPRESSION: 1. No acute intracranial process identified. 2. Moderate global cortical atrophy and chronic microvascular ischemic changes. 3. Punctate foci of micro bleed in the the bilateral thalami and left lentiform nucleus likely sequela of chronic hypertension. EKG revealed atrial fibrillation with RVR Telemetry reveals atrial fibrillation with moderate ventricular response. Converted to junctional, had episodes of pause and went to sinus bradycardia. Echocardiogram reported: Left ventricle: Mild concentric left ventricular hypertrophy was seen. LVEF was 45-50%. Mild diffuse hypokinesis of left ventricle was seen. Right ventricle was normal sized with normal systolic function. Mild biatrial enlargement was seen. Aortic valve was trileaflet. There was mild aortic insufficiency. There was no aortic stenosis. There was [id number] mitral regurgitation. There was mild tricuspid regurgitation. There was mild pulmonary valve insufficiency. There was moderate pericardial effusion. There was no echocardiographic evidence for tamponade. Right ventricular systolic pressure was assessed at 50 mm Hg. Patient was a 84-year-old female who is poor historian. Reported past medical history includes atrial fibrillation, heart failure, advanced dementia, hypertension and diabetes mellitus. Patient was presented with anemia and tarry stool. Has received blood transfusion for GI bleeding. On presentation, the patient had atrial fibrillation with RVR. Patient reportedly has history of atrial fibrillation. Converted to junctional rhythm, had episodes of pause and went to sinus bradycardia. Atrial fibrillation with RVR Significant anemia GI bleeding Dementia, advanced CHF, history of, diastolic Hypertension Hyperlipidemia CKD DIANN and CKD Hypothyroidism Obesity Pericardial effusion, moderate in size Pulmonary hypertension, possibly type 2 s/p EGD by GI Gastric polyps mild gastritis Hiatal hernia, small Cardiac suggestion for management: Manage on telemetry Follow up electrolytes and kidney function tests and correct abnormalities. Keep potassium above four and magnesium above two Amiodarone: 200 mg daily Avoid beta-rashmi. Recognizing comorbidities, the patient's CHADS-VASc score is high and long-term full anticoagulation as advised. Restarted on full anticoagulation (GI and Neurology gave permission). Evaluation and management of DIANN/CKD as per primary team/nephrology Further evaluation and management depends on the above and clinical course A total of 55 minutes was spent reviewing the patient record, examining the patient, making a diagnostic and therapeutic plan, discussing this plan with medical personnel, following up on diagnostic studies and following the patient for clinical stability excluding any and all procedures. At least 50% of this time was spent in direct, [id number] contact. Thank you for allowing me to participate in this patient's care. Further recommendations will depend on patient's clinical course. Please do not hesitate to contact me if you have any questions or concerns. This medical document was created using electronic medical record system with [employer] dictation system. Although this document has been carefully reviewed, there may still be some phonetic and typographical errors. These areas are purely typographical due to the imperfection of the software programs, and do not reflect any compromise in the patient's medical care. Dietary Evaluation Review Comments: CCHO-60g renal Specific 50g Protein diet texture as tolerated when medically feasible. Expected Outcomes/Goals: controlled DM, less uremic symptoms, maintain BW. Plan discussed with: Other (nurse) CALVIN GARCIA MD Oct 23, 2024 10:57
== END 2024-10-23 11:30 | disposition home health service (06) | DRG 377 ==
LOC: ER 19:19 → EDBD 19:19 → OVERFLOW 21:53 → TELE-CENTR 10-16 14:41
PROVIDERS: ADMIT Nurse Practitioner Family; ATTEND Nurse Practitioner Family
PROC: 30233N1 Transfusion of Nonautologous Red Blood Cells into Peripheral Vein, Percutaneous Approach (ICD-10-PCS; principal; 2024-10-16)
PROC: 0DB68ZX Excision of Stomach, Via Natural or Artificial Opening Endoscopic, Diagnostic (ICD-10-PCS; 2024-10-17)
PROC: 0DB78ZX Excision of Stomach, Pylorus, Via Natural or Artificial Opening Endoscopic, Diagnostic (ICD-10-PCS; 2024-10-17)
DX: K29.01 Acute gastritis with bleeding (principal); G93.41 Metabolic encephalopathy; N17.0 Acute kidney failure with tubular necrosis; D62 Acute posthemorrhagic anemia; N30.01 Acute cystitis with hematuria; I13.0 Hypertensive heart and chronic kidney disease with heart failure and stage 1 through stage 4 chronic kidney disease, or unspecified chronic kidney disease; I31.39 Other pericardial effusion (noninflammatory); I50.32 Chronic diastolic (congestive) heart failure; J96.10 Chronic respiratory failure, unspecified whether with hypoxia or hypercapnia; E11.22 Type 2 diabetes mellitus with diabetic chronic kidney disease; N18.30 Chronic kidney disease, stage 3 unspecified; I48.91 Unspecified atrial fibrillation; E03.9 Hypothyroidism, unspecified; K31.7 Polyp of stomach and duodenum; G30.9 Alzheimer's disease, unspecified; F02.80 Dementia in other diseases classified elsewhere, unspecified severity, without behavioral disturbance, psychotic disturbance, mood disturbance, and anxiety; E66.9 Obesity, unspecified; E78.5 Hyperlipidemia, unspecified; I27.20 Pulmonary hypertension, unspecified; I08.1 Rheumatic disorders of both mitral and tricuspid valves; K44.9 Diaphragmatic hernia without obstruction or gangrene; R26.9 Unspecified abnormalities of gait and mobility; Z79.899 Other long term (current) drug therapy; Z79.01 Long term (current) use of anticoagulants; Z83.3 Family history of diabetes mellitus; Z82.49 Family history of ischemic heart disease and other diseases of the circulatory system; Z99.81 Dependence on supplemental oxygen; Z68.25 Body mass index [BMI] 25.0-25.9, adult
CPT/HCPCS: 36415; 36600; 70551; 71045; 74176; 80048; 80053; 80061; 81001; 82010; 82378; 82570; 82607; 82746; 82805; 82962; 83036; 83540; 83550; 83605; 83735; 83880; 84156; 84443; 84484; 85025; 86850; 86900; 86901; 86920; 87086; 87088; 87186; 93005; 93306; 96374; 96375; G0378; J1756; J1815; J2405; J2470; J2704; Q0162